=== PATIENT | female | born 1960 | race Caucasian/White ===

== ENCOUNTER 2017-08-25 06:41 | Inpatient (IN) | payer OTHER ==
[2017-08-25] MEDS ORDERED: PANTOPRAZOLE SODIUM 40 MG VIAL IVPUSH ONE (07:39)
[2017-08-25] MEDS ORDERED: PANTOPRAZOLE SODIUM 40 MG VIAL ONE (07:59)
--- NOTE | 2017-08-25 08:29 | PDOC ---
History of Present Illness <Lottie Wilson - Last Filed: 08/25/17 12:10> - History of Present Illness Initial Comments: 08/25/17 08:42 The patient is a 57 year old female with no past medical history who presents to the ED with complaints of dark red blood per rectum with clots since 5 AM today. The patient states she has had two episodes of liquid stool with dark red blood clots in them. She reports preceding "grumbling" in her lower abdomen prior to both bowel movements. Pt's sister states the toilet was "full of blood. " She denies any associated abdominal pain, nausea, vomiting, weakness or dizziness. She denies any history of ulcers or hemorrhoids or any prior colonoscopy before. She states that yesterday she took two advil for a cold, but denies frequent NSAID use. Denies etoh use. She denies any fevers, chills, cough, SOB, CP, or urinary symptoms PCP: Inocencio Duffy <Aurora Sampson - Last Filed: 08/25/17 12:33> - General Chief Complaint: Rectal Bleed Stated Complaint: RECTAL BLEEDING Time Seen by Provider: 08/25/17 07:34 Past History <Lottie Wilson - Last Filed: 08/25/17 12:10> - Past Medical History COPD: No - Immunization History Immunization Up to Date: Yes - Suicide/Smoking/Psychosocial Hx Smoking History: Never smoked Have you smoked in the past 12 months: No Information on smoking cessation initiated: No Hx Alcohol Use: No Drug/Substance Use Hx: No Substance Use Type: None <Aurora Sampson - Last Filed: 08/25/17 12:33> - Past Medical History Allergies/Adverse Reactions: Allergies Allergy/AdvReac Type Severity Reaction Status Date / Time No Known Allergies Allergy Verified 08/25/17 07:00 Home Medications: Ambulatory Orders NK [No Known Home Medication] 08/06/15 Review of Systems - Review of Systems Comments:: 08/25/17 08:42 GENERAL/CONSTITUTIONAL: No fever or chills. No weakness. HEAD, EYES, EARS, NOSE AND THROAT: No change in vision. No ear pain or discharge. No sore throat. GASTROINTESTINAL: No nausea, vomiting, diarrhea or constipation. +rectal bleeding GENITOURINARY: No dysuria, frequency, or change in urination. CARDIOVASCULAR: No chest pain or shortness of breath. RESPIRATORY: No cough, wheezing, or hemoptysis. MUSCULOSKELETAL: No joint or muscle swelling or pain. No neck or back pain. SKIN: No rash NEUROLOGIC: No headache, vertigo, loss of consciousness, or change in strength/ sensation. ENDOCRINE: No increased thirst. No abnormal weight change. HEMATOLOGIC/LYMPHATIC: No anemia, easy bleeding, or history of blood clots. ALLERGIC/IMMUNOLOGIC: No hives or skin allergy. <AlistairKumar [email or web address] - Last Filed: 08/25/17 12:33> *Physical Exam - Vital Signs Last Vital Signs Temp Pulse Resp BP Pulse Ox 98.7 F 71 16 120/87 99 08/25/17 07:00 08/25/17 07:00 08/25/17 07:00 08/25/17 07:00 08/25/17 07:10 <RitaallLottie - Last Filed: 08/25/17 12:10> - Vital Signs Last Vital Signs Temp Pulse Resp BP Pulse Ox 98.7 F 71 16 120/87 99 08/25/17 07:00 08/25/17 07:00 08/25/17 07:00 08/25/17 07:00 08/25/17 07:10 - Physical Exam Comments: 08/25/17 08:43 GENERAL: Awake, alert, and fully oriented, in no acute distress HEAD: No signs of trauma EYES: PERRLA, EOMI, sclera anicteric, conjunctiva clear ENT: Auricles normal inspection, hearing grossly normal, nares patent, oropharynx clear without exudates. Moist mucosa NECK: Normal ROM, supple, no lymphadenopathy, JVD, or masses LUNGS: Breath sounds equal, clear to auscultation bilaterally. No wheezes, and no crackles HEART: Regular rate and rhythm, normal S1 and S2, no murmurs, rubs or gallops ABDOMEN: Soft, nontender, normoactive bowel sounds. No guarding, no rebound. No masses RECTAL: +BRB in vault, no solid stool, no active bleeding or oozing. +non bleeding non thrombosed hemorrhoid at 12 o'clock. EXTREMITIES: Normal range of motion, no edema. No clubbing or cyanosis. No cords, erythema, or tenderness NEUROLOGICAL: Normal speech, cranial nerves intact, negative pronator drift, 5/ 5 strength in all 4 extremities, normal sensation to light touch in all 4 extremities, normal cerebellar exam, normal gait, normal reflexes and tone SKIN: Warm, Dry, normal turgor, no rashes or lesions noted. <Aurora Sampson - Last Filed: 08/25/17 12:33> Heart Score/ECG Review #1 08/25/17 09:37 Twelve-lead EKG was performed and reviewed by me. Normal sinus rhythm, rate 64. Normal axis and intervals. No ST elevations. <Aurora Sampson - Last Filed: 08/25/17 12:33> ED Treatment Course - LABORATORY CBC & Chemistry Diagram: 08/25/17 08:00 08/25/17 09:00 - ADDITIONAL ORDERS Additional order review: Laboratory Results 08/25/17 08/25/17 08/25/17 09:00 08:30 08:28 PT with INR INR PTT (Actin FS) Sodium 141 Potassium 4.2 Chloride 109 H Carbon Dioxide 27 Anion Gap 5 L BUN 14 Creatinine 0.9 Creat Clearance w eGFR > 60 Random Glucose 94 Calcium 8.2 L Total Bilirubin 0.5 AST 20 ALT 17 Alkaline Phosphatase 70 Total Protein 6.7 Albumin 3.5 Urine Color Ltyellow Urine Appearance Slcloudy Urine pH 5.0 Ur Specific [place] 1.014 Urine Protein Negative Urine Glucose (UA) Negative Urine Ketones Negative Urine Blood 1+ H Urine Nitrite Negative Urine Bilirubin Negative Urine Urobilinogen Negative Ur Leukocyte Esterase Negative Urine WBC (Auto) 3 Urine RBC (Auto) 1 Ur Epithelial Cells Few Urine Mucus Rare Stool Occult Blood Positive Blood Type Antibody Screen 08/25/17 08/25/17 08/25/17 08:00 08:00 08:00 PT with INR 11.30 INR 1.00 PTT (Actin FS) Sodium Cancelled Potassium Cancelled Chloride Cancelled Carbon Dioxide Cancelled Anion Gap Cancelled BUN Cancelled Creatinine Cancelled Creat Clearance w eGFR Cancelled Random Glucose Cancelled Calcium Cancelled Total Bilirubin Cancelled AST Cancelled ALT Cancelled Alkaline Phosphatase Cancelled Total Protein Cancelled Albumin Cancelled Urine Color Urine Appearance Urine pH Ur Specific [place] Urine Protein Urine Glucose (UA) Urine Ketones Urine Blood Urine Nitrite Urine Bilirubin Urine Urobilinogen Ur Leukocyte Esterase Urine WBC (Auto) Urine RBC (Auto) Ur Epithelial Cells Urine Mucus Stool Occult Blood Blood Type O POSITIVE Antibody Screen Negative 08/25/17 08:00 PT with INR INR PTT (Actin FS) 27.3 Sodium Potassium Chloride Carbon Dioxide Anion Gap BUN Creatinine Creat Clearance w eGFR Random Glucose Calcium Total Bilirubin AST ALT Alkaline Phosphatase Total Protein Albumin Urine Color Urine Appearance Urine pH Ur Specific [place] Urine Protein Urine Glucose (UA) Urine Ketones Urine Blood Urine Nitrite Urine Bilirubin Urine Urobilinogen Ur Leukocyte Esterase Urine WBC (Auto) Urine RBC (Auto) Ur Epithelial Cells Urine Mucus Stool Occult Blood Blood Type Antibody Screen 08/25/17 08:00 RBC 4.02 MCV 86.5 MCHC 34.2 RDW 13.8 MPV 8.3 Neutrophils % 42.7 L D Lymphocytes % 29.1 D Monocytes % 9.8 Eosinophils % 17.4 H D Basophils % 1.0 - RADIOLOGY Radiograph Interpretation: 08/25/17 10:17 Chest X-ray as reviewed by Dr. Carbone reports no acute pathology. 08/25/17 11:[address] as reviewed by Dr. Sevilla reports sigmoid diverticulosis. 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 The remainder of the study demonstrates no obvious interval change. Bilateral inguinal hernias containing fat only. Very small umbilical hernia containing fat only. Small densities are again noted adjacent to the sigmoid colon and cecum which may be on a post surgical or post procedural basis versus representing incidental postinflammatory/postinfectious calcifications. Chronic fecal retention which is probably moderate. S/p hysterectomy - Medications Given in the ED: ED Medications Discontinued Medications Generic Name Dose Route Start Last Admin Trade Name Freq PRN Reason Stop Dose Admin Pantoprazole Sodium 40 mg 08/25/17 07:39 08/25/17 08:10 Protonix Iv IVPUSH 08/25/17 07:40 40 mg ONCE ONE Administration <Lottie Wilson - Last Filed: 08/25/17 12:10> - LABORATORY CBC & Chemistry Diagram: 08/25/17 12:00 08/25/17 09:00 - RADIOLOGY Radiology Studies Ordered: Category Date Time Status CHEST X-RAY PORTABLE* [RAD] Stat Radiology 08/25/17 07:38 Ordered - Medications Given in the ED: ED Medications Discontinued Medications Generic Name Dose Route Start Last Admin Trade Name Freq PRN Reason Stop Dose Admin Pantoprazole Sodium 40 mg 08/25/17 07:39 08/25/17 08:10 Protonix Iv IVPUSH 08/25/17 07:40 40 mg ONCE ONE Administration <Aurora Sampson - Last Filed: 08/25/17 12:33> Medical Decision Making - Medical Decision Making 08/25/17 12:01 Phone call placed to network operations project manager. Awaiting call back Microblog sent to [facility] hospitalist. Awaiting call back 08/25/17 12:10 Phone calls returned by both and [facility]. Case was discussed <Lottie Wilson - Last Filed: 08/25/17 12:10> - Medical Decision Making 08/25/17 08:31 57-year-old female with no significant past medical history presents emergency Department with 2 episodes of bright red blood per rectum with clots. Patient reports "grumbling "in her lower abdomen prior to the bleeding but denies any abdominal pain. Not on any anticoagulation no abdominal surgeries. No excessive NSAID use or alcohol use. Differential includes but not limited to diverticulosis versus gastritis versus peptic ulcer disease. Plan: -labs -CTAP -admit 08/25/17 12:07 Labs wnl. CTAP with diverticulosis. Likely diverticular bleed. Case discussed with Dr. Reeves who will see pt. Awaiting call back from hospitalist re admission. 08/25/17 12:[address] Varela, patient accepted for admission to Med/Surg. Case discussed in detail with admitting physician including history, physical exam and ancillary studies. Admitting physician has assumed care for the patient, will follow all pending diagnostics and will complete the evaluation and treatment. <Aurora Sampson - Last Filed: 08/25/17 12:33> *DC/Admit/Observation/Transfer - Attestations Scribe Attestion: 08/25/17 10:17 Documentation prepared by Lottie Wilson, acting as medical billing coordinator for Aurora Sampson MD. <Lottie Wilson - Last Filed: 08/25/17 12:10> - Discharge Dispostion Decision to Admit order: Yes - Attestations Physician Attestion: 08/25/17 12:27 I, Dr. Aurora Sampson MD, attest that this document has been prepared under my direction and personally reviewed by me in its entirety. I further attest, that it accurately reflects all work, treatment, procedures and medical decision -making performed by me. <Aurora Sampson - Last Filed: 08/25/17 12:33> Diagnosis at time of Disposition: Diverticulosis - Discharge Dispostion Condition at time of disposition: Stable - Referrals Referrals: ON STAFF,NOT [Primary Care Provider] -
[2017-08-25 08:34] LABS: EOS % 17.4 % (0-4.5); HEMATOCRIT 34.8 % (32.4-45.2); HEMOGLOBIN 11.9 GM/dL (10.7-15.3); LYMPH % 29.1 % (8-40); MCH 29.5 pg (25.7-33.7); MCHC 34.2 g/dl (32.0-36.0); MEAN CELL VOLUME 86.5 fl (80-96); MEAN PLT VOLUME 8.3 fl (7.5-11.1); MONO % 9.8 % (3.8-10.2); NEUT % 42.7 % (42.8-82.8); PLATELET COUNT 222 K/MM3 (134-434); RBC 4.02 M/mm3 (3.60-5.2); RDW 13.8 % (11.6-15.6); WHITE BLOOD COUNT 3.8 K/mm3 (4.0-10.0)
[2017-08-25 08:40] LABS: PROTHROMBIN TIME (PATIENT) 11.3 SEC (9.7-13.0)
[2017-08-25 09:01] LABS: URINE APPEARANCE SLCLOUDY; URINE BILIRUBIN NEGATIVE (<2.0 mg/dL); URINE COLOR LTYELLOW; URINE GLUCOSE (UA) NEGATIVE (NEGATIVE); URINE KETONE NEGATIVE (NEGATIVE); URINE LEUK ESTERASE NEGATIVE (NEGATIVE); URINE NITRITE NEGATIVE (NEGATIVE); URINE PROTEIN NEGATIVE (NEGATIVE); URINE UROBILINOGEN NEGATIVE mg/dL (0.2-1.0)
[2017-08-25 09:06] LABS: EPI CELLS FEW /HPF (FEW); URINE MUCUS RARE
--- NOTE | 2017-08-25 09:16 | EKG ---
Test Reason : Blood Pressure : / mmHG Vent. Rate : 064 BPM Atrial Rate : 064 BPM P-R Int : 180 ms QRS Dur : 080 ms QT Int : 394 ms P-R-T Axes : 061 -04 059 degrees QTc Int : 406 ms NORMAL SINUS RHYTHM SEPTAL INFARCT , AGE UNDETERMINED ABNORMAL ECG NO PREVIOUS ECGS AVAILABLE Confirmed by JERICHO RAMIREZ MD ([id number]) on 08/25/2017 9:16:22 AM Referred By: Confirmed By:JERICHO RAMIREZ MD
[2017-08-25 09:37] LABS: ALBUMIN 3.5 g/dl (3.4-5.0); ALK PHOS 70 U/L (45-117); ANION GAP 5 (8-16); BILIRUBIN,TOTAL 0.5 mg/dL (0.2-1.0); BLOOD UREA NITROGEN 14 mg/dL (7-18); CALCIUM 8.2 mg/dL (8.5-10.1); CHLORIDE 109 mmol/L (98-107); CO2 27 mmol/L (21-32); CREATININE 0.9 mg/dL (0.55-1.02); GLUCOSE,RANDOM 94 mg/dL (74-106); POTASSIUM 4.2 mmol/L (3.5-5.1); SGOT/AST 20 U/L (15-37); SGPT/ALT 17 U/L (12-78); SODIUM 141 mmol/L (136-145); TOT PROT 6.7 g/dl (6.4-8.2)
[2017-08-25 12:12] LABS: HEMATOCRIT 31.4 % (32.4-45.2); HEMOGLOBIN 10.8 GM/dL (10.7-15.3); MCH 29.7 pg (25.7-33.7); MCHC 34.5 g/dl (32.0-36.0); MEAN PLT VOLUME 8.1 fl (7.5-11.1); PLATELET COUNT 201 K/MM3 (134-434); RBC 3.65 M/mm3 (3.60-5.2); RDW 13.4 % (11.6-15.6); WHITE BLOOD COUNT 3.2 K/mm3 (4.0-10.0)
--- NOTE | 2017-08-25 12:35 | PN ---
Teaching Attending Note Name of Resident: Isabela Jackson ATTENDING PHYSICIAN STATEMENT I saw and evaluated the patient. I reviewed the resident's note and discussed the case with the resident. I agree with the resident's findings and plan as documented with exceptions below. SUBJECTIVE: 57 yof with PMHx of kidney stones, Hysterectomy for fibroid bleed, , was in her USOH till this AM when went to the bathroom and had bloody bowel movement. Had another episode half hour later "stool mixed with blood and clots ", "filled the toilet", both episodes associated with crampy abdominal pain, prompting her to come to the ED. Denies any further pain or bleeding or BM in the ED. 12 point ROS done, neg for fevers, chills, recent travel or antibiotics, NSAIDs use, prior similar episode, dizziness, chest pain, palpitations, dyspnea or other complaints. Currently asymptomatic in bed. Mother with family Hx of ?Stomach cancer OBJECTIVE: Vital Signs Period Temp Pulse Resp BP Sys/[place] Pulse Ox Last 24 Hr 98.7 F 71 16 120/87 99-100 Intake & Output 08/22/17 08/23/17 08/24/17 08/25/17 23:59 23:59 23:59 23:59 Weight 150 lb GENERAL: Awake, alert, and fully oriented, in no acute distress. HEAD: Normal with no signs of trauma. EYES: Pupils equal, round and reactive to light, extraocular movements intact, sclera anicteric, conjunctiva clear. No lid lag. EARS, NOSE, THROAT: Ears normal, nares patent, oropharynx clear without exudates. Moist mucous membranes. NECK: Soft, supple, no JVD LUNGS: Breath sounds equal, clear to auscultation bilaterally. No wheezes, and no crackles. No accessory muscle use. HEART: S1S2 regular ABDOMEN: Soft, obese, non tender throughout, no voluntary or involuntary guarding or rigidity, positive bowel sounds, no hepatosplenomegaly appreciated RECTAL: no gross external blood or excoriation, limited rectal exam, skin minimal dried blood otherwise empty vault MUSCULOSKELETAL: Normal range of motion at all joints. No bony deformities or tenderness. No CVA tenderness. UPPER EXTREMITIES: 2+ pulses, warm, well-perfused. No cyanosis. No clubbing. No peripheral edema. LOWER EXTREMITIES: 2+ pulses, warm, well-perfused. No calf tenderness. No peripheral edema. NEUROLOGICAL: Cranial nerves II-XII intact. Normal speech. PSYCHIATRIC: Cooperative. Good eye contact. Appropriate mood and affect. SKIN: Warm, dry, normal turgor, no rashes or lesions noted, normal capillary refill. Home Medication List Medication Instructions Recorded Confirmed Type NK [No Known Home Medication] 08/06/15 08/25/17 History Laboratory Results - last 24 hr 08/25/17 08/25/17 08/25/17 08:00 08:00 08:00 WBC 3.8 L D RBC 4.02 Hgb 11.9 Hct 34.8 MCV 86.5 MCH 29.5 MCHC 34.2 RDW 13.8 Plt Count 222 MPV 8.3 Neutrophils % 42.7 L D Lymphocytes % 29.1 D Monocytes % 9.8 Eosinophils % 17.4 H D Basophils % 1.0 PT with INR INR PTT (Actin FS) 27.3 Sodium Cancelled Potassium Cancelled Chloride Cancelled Carbon Dioxide Cancelled Anion Gap Cancelled BUN Cancelled Creatinine Cancelled Creat Clearance w eGFR Cancelled Random Glucose Cancelled Calcium Cancelled Total Bilirubin Cancelled AST Cancelled ALT Cancelled Alkaline Phosphatase Cancelled Total Protein Cancelled Albumin Cancelled Urine Color Urine Appearance Urine pH Ur Specific [place] Urine Protein Urine Glucose (UA) Urine Ketones Urine Blood Urine Nitrite Urine Bilirubin Urine Urobilinogen Ur Leukocyte Esterase Urine WBC (Auto) Urine RBC (Auto) Ur Epithelial Cells Urine Mucus Stool Occult Blood Blood Type Antibody Screen 08/25/17 08/25/17 08/25/17 08:00 08:00 08:28 WBC RBC Hgb Hct MCV MCH MCHC RDW Plt Count MPV Neutrophils % Lymphocytes % Monocytes % Eosinophils % Basophils % PT with INR 11.30 INR 1.00 PTT (Actin FS) Sodium Potassium Chloride Carbon Dioxide Anion Gap BUN Creatinine Creat Clearance w eGFR Random Glucose Calcium Total Bilirubin AST ALT Alkaline Phosphatase Total Protein Albumin Urine Color Urine Appearance Urine pH Ur Specific [place] Urine Protein Urine Glucose (UA) Urine Ketones Urine Blood Urine Nitrite Urine Bilirubin Urine Urobilinogen Ur Leukocyte Esterase Urine WBC (Auto) Urine RBC (Auto) Ur Epithelial Cells Urine Mucus Stool Occult Blood Positive Blood Type O POSITIVE Antibody Screen Negative 08/25/17 08/25/17 08/25/17 08:30 09:00 12:00 WBC 3.2 L RBC 3.65 Hgb 10.8 Hct 31.4 L MCV 86.0 MCH 29.7 MCHC 34.5 RDW 13.4 Plt Count 201 MPV 8.1 Neutrophils % Lymphocytes % Monocytes % Eosinophils % Basophils % PT with INR INR PTT (Actin FS) Sodium 141 Potassium 4.2 Chloride 109 H Carbon Dioxide 27 Anion Gap 5 L BUN 14 Creatinine 0.9 Creat Clearance w eGFR > 60 Random Glucose 94 Calcium 8.2 L Total Bilirubin 0.5 AST 20 ALT 17 Alkaline Phosphatase 70 Total Protein 6.7 Albumin 3.5 Urine Color Ltyellow Urine Appearance Slcloudy Urine pH 5.0 Ur Specific [place] 1.014 Urine Protein Negative Urine Glucose (UA) Negative Urine Ketones Negative Urine Blood 1+ H Urine Nitrite Negative Urine Bilirubin Negative Urine Urobilinogen Negative Ur Leukocyte Esterase Negative Urine WBC (Auto) 3 Urine RBC (Auto) 1 Ur Epithelial Cells Few Urine Mucus Rare Stool Occult Blood Blood Type Antibody Screen CT A/P: sigmoid diverticulosis, 1.2 cm left renal angiomyolipoma, small inguinal and umbilical fat hernia, small densities adjacent to sigmoid colon/ ceceum present on CT In 2014 EKG NSR 64, QS in V1-V2 ASSESSMENT AND PLAN: 57 yof with hematochezia -Acute lower gastrointestinal Haemorrhage, high suspicion for haemorrhoid vs diverticular bleed, Low suspicion for UGIB as PUD vs vascular malformation -ACute blood loss anemia -Leucopenia Plan: GI Dr. Reeves consulted from ED, will follow up. Likely needs EGD/ colonoscopy. 2 large bore IVs, NPO, IVF, type and screen, h/h q8h. Protonix 40 mg IV BID, monitor for episodes of bleed. Transfuse for Hb < 8 or symptomatic. Trend WBC. DVTPPX with SCDs Plan discussed with patient and sister at bedside in detail, all questions answered. Total admit time 65 min.
--- NOTE | 2017-08-25 13:58 | HP ---
CHIEF COMPLAINT: bleeding from rectum PCP: Dr farida Duffy [phone] HISTORY OF PRESENT ILLNESS: The patient is a 57 year old female with a no significant PMH that presented to ED today complaining of lower GI bleeding that she experienced at 5 AM today. She woke up this morning and had two bowel movements with visible bright blood. The first one was just like "diarrhea full of blood" associated with abdominal cramping, "like bloating" and second episode in less than an hour after, mixed with stool. Her sister that presented with her to the hospital, states that toilet bowl was full of blood. Since the patient came to emergency room, she didn't have more episodes of BMs. She denies having bleeding in the past. At the presentation, she denies abdominal pain, nausea, vomiting. She never had colonoscopy. She denies changing her diet recently. Yesterday she had salad with rice. The patient denies sick contacts. She denies family history of GI malignancy, inflammatory disease. She denies fever, chills, weight loss, weight gain, change in bowel habits recently. She also denies dysuria, increased frequency, urgency. ER course was notable for: (1)Protonix, EKG (2)CT abdomen (3)CBC: Hgb 10.8 Recent Travel: no PAST MEDICAL HISTORY: kidney stones PAST SURGICAL HISTORY: c setion x 3, hysterectomy Social History: Smoking:never smoker Alcohol:denies, then admits occasionally Drugs: denies Family History: Father: , lung cancer, smoker Mother: , DM, HTN Children: healthy Six Siblings: healthy Allergies No Known Allergies Allergy (Verified 08/25/17 07:00) HOME MEDICATIONS: Home Medications Medication Instructions Recorded NK [No Known Home Medication] 08/06/15 REVIEW OF SYSTEMS CONSTITUTIONAL: Absent: fever, chills, diaphoresis, generalized weakness, malaise, loss of appetite, weight change HEENT: Absent: rhinorrhea, nasal congestion, throat pain, throat swelling, difficulty swallowing, mouth swelling, ear pain, eye pain, visual changes CARDIOVASCULAR: Absent: chest pain, syncope, palpitations, irregular heart rate, lightheadedness , peripheral edema RESPIRATORY: Absent: cough, shortness of breath, dyspnea with exertion, orthopnea, wheezing GASTROINTESTINAL: hematochezia Absent: abdominal pain, abdominal distension, nausea, vomiting, diarrhea, constipation, GENITOURINARY: Absent: dysuria, frequency, urgency, hesitancy, hematuria, flank pain, genital pain MUSCULOSKELETAL: Absent: myalgia, arthralgia, joint swelling, back pain, neck pain ENDOCRINE: Absent: unexplained weight gain, unexplained weight loss, heat intolerance, cold intolerance NEUROLOGIC: Absent: headache, focal weakness or paresthesias, dizziness, unsteady gait, seizure PSYCHIATRIC: Absent: anxiety, depression PHYSICAL EXAMINATION Vital Signs - 24 hr 08/25/17 08/25/17 07:00 07:10 Temperature 98.7 F Pulse Rate 71 Respiratory 16 Rate Blood Pressure 120/87 O2 Sat by Pulse 100 99 Oximetry (%) GENERAL: Awake, alert, and fully oriented, in no acute distress, sitting comfortably in bed. HEAD: Normal with no signs of trauma. EYES: Pupils equal, round and reactive to light, extraocular movements intact, sclera anicteric, conjunctiva clear. EARS, NOSE, THROAT: Oropharynx clear without exudates. Moist mucous membranes. NECK: Normal range of motion, supple without lymphadenopathy, JVD, or masses. LUNGS: Breath sounds equal, clear to auscultation bilaterally. No wheezes, and no crackles. No accessory muscle use. HEART: Regular rate and rhythm, normal S1 and S2 without murmur, rub or gallop. ABDOMEN: Soft, nontender, not distended, normoactive bowel sounds, no guarding, no rebound, no masses. No hepatomegaly or splenomegaly. Rectal exam: External hemorrhoid/skin tag, normal sphincter tone, no visible bleeding, no masses appreciated. MUSCULOSKELETAL: Normal range of motion at all joints. No bony deformities or tenderness. UPPER EXTREMITIES: 2+ pulses, no peripheral edema. LOWER EXTREMITIES: 2+ pulses, no peripheral edema. NEUROLOGICAL: Normal speech, no facial asymmetry, motor 5/5 in all extremities, sensation to light touch intact, gait not observed. PSYCHIATRIC: Cooperative. Good eye contact. Appropriate mood and affect. SKIN: Warm, dry, normal turgor, no rashes or lesions noted. Laboratory Results - last 24 hr 08/25/17 08/25/17 08/25/17 08:00 08:00 08:00 WBC 3.8 L D RBC 4.02 Hgb 11.9 Hct 34.8 MCV 86.5 MCH 29.5 MCHC 34.2 RDW 13.8 Plt Count 222 MPV 8.3 Neutrophils % 42.7 L D Lymphocytes % 29.1 D Monocytes % 9.8 Eosinophils % 17.4 H D Basophils % 1.0 PT with INR INR PTT (Actin FS) 27.3 Sodium Cancelled Potassium Cancelled Chloride Cancelled Carbon Dioxide Cancelled Anion Gap Cancelled BUN Cancelled Creatinine Cancelled Creat Clearance w eGFR Cancelled Random Glucose Cancelled Calcium Cancelled Total Bilirubin Cancelled AST Cancelled ALT Cancelled Alkaline Phosphatase Cancelled Total Protein Cancelled Albumin Cancelled Urine Color Urine Appearance Urine pH Ur Specific [place] Urine Protein Urine Glucose (UA) Urine Ketones Urine Blood Urine Nitrite Urine Bilirubin Urine Urobilinogen Ur Leukocyte Esterase Urine WBC (Auto) Urine RBC (Auto) Ur Epithelial Cells Urine Mucus Stool Occult Blood Blood Type Antibody Screen 08/25/17 08/25/17 08/25/17 08:00 08:00 08:28 WBC RBC Hgb Hct MCV MCH MCHC RDW Plt Count MPV Neutrophils % Lymphocytes % Monocytes % Eosinophils % Basophils % PT with INR 11.30 INR 1.00 PTT (Actin FS) Sodium Potassium Chloride Carbon Dioxide Anion Gap BUN Creatinine Creat Clearance w eGFR Random Glucose Calcium Total Bilirubin AST ALT Alkaline Phosphatase Total Protein Albumin Urine Color Urine Appearance Urine pH Ur Specific [place] Urine Protein Urine Glucose (UA) Urine Ketones Urine Blood Urine Nitrite Urine Bilirubin Urine Urobilinogen Ur Leukocyte Esterase Urine WBC (Auto) Urine RBC (Auto) Ur Epithelial Cells Urine Mucus Stool Occult Blood Positive Blood Type O POSITIVE Antibody Screen Negative 08/25/17 08/25/17 08/25/17 08:30 09:00 12:00 WBC 3.2 L RBC 3.65 Hgb 10.8 Hct 31.4 L MCV 86.0 MCH 29.7 MCHC 34.5 RDW 13.4 Plt Count 201 MPV 8.1 Neutrophils % Lymphocytes % Monocytes % Eosinophils % Basophils % PT with INR INR PTT (Actin FS) Sodium 141 Potassium 4.2 Chloride 109 H Carbon Dioxide 27 Anion Gap 5 L BUN 14 Creatinine 0.9 Creat Clearance w eGFR > 60 Random Glucose 94 Calcium 8.2 L Total Bilirubin 0.5 AST 20 ALT 17 Alkaline Phosphatase 70 Total Protein 6.7 Albumin 3.5 Urine Color Ltyellow Urine Appearance Slcloudy Urine pH 5.0 Ur Specific [place] 1.014 Urine Protein Negative Urine Glucose (UA) Negative Urine Ketones Negative Urine Blood 1+ H Urine Nitrite Negative Urine Bilirubin Negative Urine Urobilinogen Negative Ur Leukocyte Esterase Negative Urine WBC (Auto) 3 Urine RBC (Auto) 1 Ur Epithelial Cells Few Urine Mucus Rare Stool Occult Blood Blood Type Antibody Screen CT abdomen: Sigmoid diverticulosis. 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 The remainder of the exam demonstrates no obvious interval change. Bilateral inguinal hernias containing fat only. Very small umbilical hernia containing fat only. Small densities are again noted adjacent to the sigmoid colon and cecum which may be on a postsurgical or postprocedural basis versus representing incidental postinflammatory/postinfectious calcifications. Correlate clinically. Colonic fecal retention which is probably moderate. Status post hysterectomy CXR: no acute pathology EKG: NSR, 64 bpm, qt/qtc 394/406, no sondra/std, Q wave in V1, V2, V3. ASSESSMENT/PLAN: The patient is a 57 year old female with a no significant PMH that presented to ED today s/p two episodes of BRBPR this morning. S/P lower GI bleeding: -based on the patient CT abdomen it is likely that her bleeding is caused by diverticulosis, less likely bc of malformation, mass -no more episodes since arrival to the hospital -Protonix 40 mg IV ONCE given in ED -will contiue hydration with D5ns at rate 100 cc/hr, -type and screen, coags done -Consulted GI-Dr Reeves. Will follow recommendations -monitoring CBC at 8 PM -2 large IV lines present Anemia: -Hgb 10.8 from 11.9 on arrival -most likely acute blood loss -will monitor Leukopenia: -3.2 today -will monitor history of kidney stones: -no visible nephrolithiasis on CT DVT PPX: -Protonix 40 mg BID -scds bilaterally -no Heparin sq due to bleeding F/E/N: D5NS/no changes/NPO Disposition: med surg, inpatient Problem List - Problem (1) Leukopenia Code(s): D72.819 - DECREASED WHITE BLOOD CELL COUNT, UNSPECIFIED (2) Anemia due to blood loss Code(s): D50.0 - IRON DEFICIENCY ANEMIA SECONDARY TO BLOOD LOSS (CHRONIC) (3) Diverticulosis Code(s): K57.90 - DVRTCLOS OF INTEST, PART UNSP, W/O PERF OR ABSCESS W/O BLEED Visit type - Emergency Visit Emergency Visit: Yes ED Registration Date: 08/25/17 Care time: The patient presented to the Emergency Department on the above date and was hospitalized for further evaluation of their emergent condition. - New Patient This patient is new to me today: Yes Date on this admission: 08/25/17 - Critical Care Critical Care patient: No Hospitalist Screening - Colonoscopy Questionnaire Colonoscopy Questionnaire: Colonoscopy Questionnaire - Patient: 50 - 75 years old and never had a screening colonoscopy: No History of colon or rectal polyps, or CA: No History of IBD, Crohn's disease or UC: No History of abdominal radiation therapy as a child: No - Relative: 1 with colon or rectal CA, or polyps at age 60 or younger: No Colon or rectal CA diagnosed at age 45 or younger: No Multiple relatives with colon or rectal CA: No - Outcome: Screening Result: Negative Screen
[2017-08-25] MEDS: DEXTROSE 5%-NORMAL SALINE 1,000 ML IV SCH ×2 (14:04→18:31)
--- NOTE | 2017-08-25 16:55 | PN ---
Progress Note (short form) - Note Progress Note: GI CONSULTATION: PLEASE SEE COMPLETE DICTATION IN BRIEF 57F--NO PMED HX/ NO PRIOR GI HX ADMIT WITH PAINLESS HEMATOCHEZIA X 3 WITHOUT HEMODYNAMIC COMPOMISE OR OTHER GI SX POST HYDRATION HGB DROP TO 10.5 AGREE MOST LIKELY A DIVERTICULAR BLEED AND SHOULD RESOLVE WITH SUPPORTIVE CARE RECC: CLEARS PO F/U H/H Q 12 COLONOSOCPY/ DIAGNOSTIC IF REMAINS STABLE; WOULD BEGIN A BOWEL PREP ON 08/26 AT 2 PM GOLYTLY 4 LITERS PO AND AT 7PM ON 08/26 DULCOLAX TABS 20MG PO x 1 FOR COLONOSOCPY ON 08/27 IF PT HAS ONSET OF HEMODYNAMIC SIGNIF BLEEDING, THEN WOULD ADVISE CT ANGIO AND SURGICAL EVAL. THANKS, MD VALERIE
[2017-08-25 18:10] VITALS: BMI 24.2
[2017-08-25 18:22] LABS: HEMATOCRIT 31.5 % (32.4-45.2); MCH 30.1 pg (25.7-33.7); MEAN CELL VOLUME 86.2 fl (80-96); MEAN PLT VOLUME 8.3 fl (7.5-11.1); PLATELET COUNT 199 K/MM3 (134-434); RBC 3.65 M/mm3 (3.60-5.2); RDW 13.6 % (11.6-15.6); WHITE BLOOD COUNT 3.5 K/mm3 (4.0-10.0)
[2017-08-25] MEDS: PANTOPRAZOLE SODIUM 40 MG VIAL IVPUSH SCH (22:33)
[2017-08-26] MEDS: DEXTROSE 5%-NORMAL SALINE 1,000 ML IV SCH ×2 (01:41→13:08)
--- NOTE | 2017-08-26 06:08 | CONS ---
DATE OF CONSULTATION: 08/25/2017 GASTROENTEROLOGY CONSULTATION REASON FOR CONSULTATION: I was asked by the ER to evaluate the patient for hematemesis. HISTORY OF PRESENT ILLNESS: The patient is a 57-year-old woman from [facility] who tells me that she has no significant past medical history. Apparently she has no significant prior gastrointestinal history. She has never had a colonoscopy. She has never had issues with her bowels in the past. Apparently she noted that this morning she got the urge to go to the toilet, went to the toilet. She had a little bit of abdominal cramping and a whole gush of blood came out. She said it was a lot of blood with some clots. She did not lose consciousness, have shortness of breath, dizziness, diaphoresis or chest pain. She then had a second episode with the same sequence of events, where she got the urge, cramping and again bleeding. She came to the hospital. This started at around 5 in the morning, and said that about an hour or two ago, she also had an episode of bright red blood per rectum. The patient denies having any significant fever, chills or sweats, eating anything uncooked or being on any new medication. She had taken an aspirin for a sinus or a cold a couple of days ago, but that was just one. She has not had prior diarrhea. There is no history of any celiac or Crohn's or colitis personally or in the family. According to the EMR, it says that she has had kidney stones. She did elicit that she has had a x3 and hysterectomy. She does not smoke. She does drink a minimal amount of alcohol. She is single. She is working. Her family history is not significant for any gastrointestinal disease. She has no known drug allergies to any medication that she is aware of. Since she is here, she is feeling better. Again, she is not having any fever, chills or sweats, nausea or vomiting. In the emergency room, the patient is getting some IV fluid as well as some Protonix IV. PHYSICAL EXAMINATION: Vital Signs: Her vital signs are completely stable. She is afebrile. Pulse 70, blood pressure 120/87. General: She looks very comfortable, in no acute distress. HEENT: Sclerae are anicteric. Neck: Supple. Heart: Regular. Abdomen: Quite soft. Bowel sounds are active. There are no masses, rebound or guarding. Rectal: Exam actually does not reveal any blood. It just reveals some mucus. There is no significant stool in the rectal vault. DIAGNOSTIC STUDIES: Her lab data is notable in that her white count is 3, hemoglobin 10.8, hematocrit 31, which is after 4 hours of hydration. Her hemoglobin had been 11.9 and dropped to 10.8 after hydration. The platelet count is 201,000. Her coags are normal, with an INR of 1. The chemistries reveal serum sodium 141, potassium 4.2, chloride 109, bicarbonate 27, BUN 14, creatinine 0.9, total bilirubin 0.5, AST 20, ALT 17, alkaline phosphatase 70, albumin 3.5. She had a CT scan of the abdomen and pelvis that revealed sigmoid diverticulosis and a left renal angiomyolipoma, which was seen on a CAT scan in 2014. There are no other significant changes. There are bilateral inguinal hernias containing fat and a small umbilical hernia containing fat as well. There is moderate colonic fecal retention. There are no other significant findings. IMPRESSION: The patient is a healthy appearing 57-year-old woman from [facility] without past medical history, who comes in with a very acute onset of hematemesis without signs or symptoms or hemodynamic compromise. She appears to have a hemodynamically stable lower gastrointestinal bleed. Her hemoglobin has dropped after hydration to below 11 g, and I suspect this is a diverticular bleed. PLAN: I have recommended that the patient be kept either n.p.o. or just on clear liquids, that she be observed, the hemoglobin and hematocrit be repeated, and if she does well overnight then tomorrow we would want to begin a bowel preparation with GoLYTELY and Dulcolax to clean out her colon, such that she can undergo a diagnostic colonoscopy. Should she have onset of hemodynamically significant bleeding or should further active bleeding ensue, then we may need to get a CT angiogram as well as a surgical consultation. For now, however, she appears to be stable and I agree with the current management. We will continue to be available to aid and manage this patient. I have discussed with her the colonoscopy procedure, the fact that it would be a routine diagnostic exam normally in someone her age. We do want to exclude the possibility of colitis, colorectal polyps or tumors. But again, as I have explained, diverticulosis would be the most likely etiology. ЮЛИЯ PADILLA M.D. RICHARD/[id number]
[2017-08-26 08:06] LABS: HEMATOCRIT 31.3 % (32.4-45.2); HEMOGLOBIN 10.8 GM/dL (10.7-15.3); MCH 29.8 pg (25.7-33.7); MCHC 34.4 g/dl (32.0-36.0); MEAN CELL VOLUME 86.4 fl (80-96); MEAN PLT VOLUME 8.4 fl (7.5-11.1); PLATELET COUNT 187 K/MM3 (134-434); RBC 3.62 M/mm3 (3.60-5.2); RDW 13.8 % (11.6-15.6); WHITE BLOOD COUNT 3.3 K/mm3 (4.0-10.0)
[2017-08-26 08:18] LABS: ALBUMIN 2.9 g/dl (3.4-5.0); ALK PHOS 62 U/L (45-117); ANION GAP 4 (8-16); BILIRUBIN,TOTAL 0.8 mg/dL (0.2-1.0); BLOOD UREA NITROGEN 9 mg/dL (7-18); CALCIUM 7.9 mg/dL (8.5-10.1); CHLORIDE 112 mmol/L (98-107); CO2 27 mmol/L (21-32); CREATININE 0.9 mg/dL (0.55-1.02); GLUCOSE,RANDOM 100 mg/dL (74-106); MAGNESIUM 2.2 mg/dL (1.8-2.4); PHOSPHOROUS 3.1 mg/dL (2.5-4.9); POTASSIUM 4.1 mmol/L (3.5-5.1); SGOT/AST 14 U/L (15-37); SGPT/ALT 13 U/L (12-78); SODIUM 143 mmol/L (136-145); TOT PROT 5.8 g/dl (6.4-8.2)
[2017-08-26 09:14] LABS: ANISOCYTOSIS 0; PLATELET ESTIMATE NORMAL
[2017-08-26] MEDS: PANTOPRAZOLE SODIUM 40 MG VIAL IVPUSH SCH ×2 (09:51→22:13)
[2017-08-26] MEDS ORDERED: PEG3350/SOD SULF,BICARB,CL/KCL 4,000 ML SOLN.RECON PO ONE (14:00)
--- NOTE | 2017-08-26 15:25 | PN ---
Teaching Attending Note Name of Resident: Ayanna Varela SUBJECTIVE: Patient seen and examined. no further episodes of bleed or BM. no dizziness or new concerns. OBJECTIVE: Vital Signs Period Temp Pulse Resp BP Sys/[place] Pulse Ox Last 24 Hr 97.5 F-98.2 F 56-84 16-20 122-149/67-88 98-100 Intake & Output 08/23/17 08/24/17 08/25/17 08/26/17 23:59 23:59 23:59 23:59 Intake Total 100 1680 Balance 100 1680 Weight 150 lb general: lying in bed in no acute distress Abdomen Soft, obese, NT throughout, ND, positive bowel sounds extremities: no edema Chest: CTAB, no rales or wheezing Home Medication List Medication Instructions Recorded Confirmed Type NK [No Known Home Medication] 08/06/15 08/25/17 History Active Medications Generic Name Dose Route Start Last Admin Trade Name Freq PRN Reason Stop Dose Admin Bisacodyl 10 mg 08/26/17 19:00 Dulcolax Suppository - RC 08/26/17 19:01 ONCE ONE Dextrose/Sodium Chloride 1,000 mls @ 100 mls/hr 08/25/17 13:00 08/26/17 13:08 D5-Ns - IV 100 mls/hr ASDIR HERNAN Administration Pantoprazole Sodium 40 mg 08/25/17 22:00 08/26/17 09:51 Protonix Iv IVPUSH 40 mg BID HERNAN Administration Laboratory Results - last 24 hr 08/25/17 08/26/17 08/26/17 17:50 07:25 07:25 WBC 3.5 L 3.3 L RBC 3.65 3.62 Hgb 11.0 10.8 Hct 31.5 L 31.3 L MCV 86.2 86.4 MCH 30.1 29.8 MCHC 35.0 34.4 RDW 13.6 13.8 Plt Count 199 187 MPV 8.3 8.4 Neutrophils % No Result Required. Neutrophils % (Manual) 30.1 L Band Neutrophils % 0.0 Lymphocytes % No Result Required. Lymphocytes % (Manual) 37.8 Monocytes % (Manual) 4 Eosinophils % (Manual) 26.2 H Basophils % (Manual) 1.0 Myelocytes % (Man) 0 Promyelocytes % (Man) 0 Blast Cells % (Manual) 0 Nucleated RBC % 0 Metamyelocytes 0 Hypochromia 1+ Platelet Estimate Normal Anisocytosis 0 Sodium 143 Potassium 4.1 Chloride 112 H Carbon Dioxide 27 Anion Gap 4 L BUN 9 Creatinine 0.9 Creat Clearance w eGFR > 60 Random Glucose 100 Calcium 7.9 L Phosphorus 3.1 Magnesium 2.2 Total Bilirubin 0.8 D AST 14 L ALT 13 Alkaline Phosphatase 62 Total Protein 5.8 L Albumin 2.9 L Microbiology 08/25/17 08:30 Urine - Urine Clean Catch Urine Culture - Final NO GROWTH OBTAINED ASSESSMENT AND PLAN: 57 yof with hematochezia -Acute lower gastrointestinal Haemorrhage, high suspicion for haemorrhoid vs diverticular bleed, Low suspicion for UGIB as PUD vs vascular malformation -Acute blood loss anemia -Leucopenia Plan: GI input noted. PO clears, start bowel prep with golytely and dulcolax today. NPO after midnight. Colonscopy +/- EGD tomorrow. Continue protonix IV BID, IVF. repeat h/h today if new bloody BM. otherwise in AM. DVTPPX with SCDs Plan discussed with patient in detail, all questions answered.
--- NOTE | 2017-08-26 15:49 | PN ---
GI Progress Note Subjective: GI F/U NOTE NO NEW COMPLAINTS NO FURTHER RECTAL BLEEDING NO BM'S YET PT HAS STARTED BOWEL PREP NO N/V/F/C/S NO ABD PAIN - Objective Vital Signs: Vital Signs Temperature 97.8 F 08/26/17 14:07 Pulse Rate 59 L 08/26/17 14:07 Respiratory Rate 20 08/26/17 14:07 Blood Pressure 149/88 08/26/17 14:07 O2 Sat by Pulse Oximetry (%) 98 08/26/17 10:42 Constitutional: Well Nourished, No Distress, Calm Eyes: Yes: WNL HENT: Yes: WNL (+BS/ SOFT/ NT) Labs: CBC, BMP 08/26/17 07:25 08/26/17 07:25 INR, PTT INR 1.00 (0.82-1.09) 08/25/17 08:00 Assessment/Plan 57F WTIH ACUTE HEMATOCHEZIA DROP IN HGB TO 10---STABLE x 12 HOURS SUSPECT RESOLVED DIVERTICULAR BLEED BOWEL PREP/ NPO AT TN FOR COLON/ DIAGNOSTIC 08/27 D/W PT AND SHE CONSENTS TO EXA F/U H/H IN CHARLES PADILLA MD
[2017-08-26] MEDS ORDERED: BISACODYL 10 MG SUPP.RECT RC ONE (19:00)
--- NOTE | 2017-08-27 07:42 | PN ---
Physical Exam: SUBJECTIVE: Patient seen and examined. Rectal bleeding has improved, no more clots. Has been on bowel prep for colonosocopy and stool this am is clear, free of blood. No abdominal pain, no lightheadedness. OBJECTIVE: Vital Signs Period Temp Pulse Resp BP Sys/Green[place] Pulse Ox Last 24 Hr 97.3 F-98.1 F 56-65 20-20 137-149/77-88 98 Vital Signs Temp 98.0 F 08/27/17 15:35 Pulse 61 08/27/17 15:35 Resp 20 08/27/17 15:35 BP 154/87 08/27/17 15:35 Pulse Ox 100 08/27/17 14:22 Intake & Output 08/26/17 08/27/17 08/27/17 23:59 11:59 23:59 Intake Total 2100 1200 0 Balance 2100 1200 0 Intake: IV 1100 1200 D5-Ns - 1,000 ml @ 100 1100 1200 mls/hr IV ASDIR HERNAN Rx#: [id number] Oral 1000 0 Other: Voiding Method Toilet Toilet Toilet # Unmeasured Voids Void 3 3 1 Bowel Movement Yes Yes # Bowel Movements 4 GENERAL: The patient is awake, alert, and fully oriented, in no acute distress. NECK: supple. LUNGS: Breath sounds equal, clear to auscultation bilaterally, no wheezes, no crackles HEART: Regular rate and rhythm, S1, S2 without murmur ABDOMEN: Soft, nontender, nondistended, normoactive bowel sounds, no guarding, no rebound, EXTREMITIES: 2+ pulses, warm, well-perfused, no edema. NEUROLOGICAL: Cranial nerves II through XII grossly intact. Normal speech, normal gait PSYCH: Normal mood, normal affect. Laboratory Results - last 24 hr 08/26/17 08/26/17 07:25 07:25 WBC 3.3 L RBC 3.62 Hgb 10.8 Hct 31.3 L MCV 86.4 MCH 29.8 MCHC 34.4 RDW 13.8 Plt Count 187 MPV 8.4 Neutrophils % No Result Required. Neutrophils % (Manual) 30.1 L Band Neutrophils % 0.0 Lymphocytes % No Result Required. Lymphocytes % (Manual) 37.8 Monocytes % (Manual) 4 Eosinophils % (Manual) 26.2 H Basophils % (Manual) 1.0 Myelocytes % (Man) 0 Promyelocytes % (Man) 0 Blast Cells % (Manual) 0 Nucleated RBC % 0 Metamyelocytes 0 Hypochromia 1+ Platelet Estimate Normal Anisocytosis 0 Sodium 143 Potassium 4.1 Chloride 112 H Carbon Dioxide 27 Anion Gap 4 L BUN 9 Creatinine 0.9 Creat Clearance w eGFR > 60 Random Glucose 100 Calcium 7.9 L Phosphorus 3.1 Magnesium 2.2 Total Bilirubin 0.8 D AST 14 L ALT 13 Alkaline Phosphatase 62 Total Protein 5.8 L Albumin 2.9 L Active Medications Generic Name Dose Route Start Last Admin Trade Name [place] PRN Reason Stop Dose Admin Dextrose/Sodium Chloride 1,000 mls @ 100 mls/hr 08/25/17 13:00 08/26/17 13:08 D5-Ns - IV 100 mls/hr ASDIR HERNAN Administration Pantoprazole Sodium 40 mg 08/25/17 22:00 08/26/17 22:13 Protonix Iv IVPUSH 40 mg BID HERNAN Administration Endoscopy: Ulcerated mass at 65cm. Distal and prox ends tatooed, extensively biopsied. CT abdomen 08/25/17: Sigmoid diverticulosis. 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 The remainder of the exam demonstrates no obvious interval change. Bilateral inguinal hernias containing fat only. Very small umbilical hernia containing fat only. Small densities are again noted adjacent to the sigmoid colon and cecum which may be on a postsurgical or postprocedural basis versus representing incidental postinflammatory/postinfectious calcifications. Correlate clinically. Colonic fecal retention which is probably moderate. Status post hysterectomy CXR: no acute pathology EKG: NSR, 64 bpm, qt/qtc 394/406, no sondra/std, Q wave in V1, V2, V3. ASSESSMENT/PLAN: No NSAIDS CT A/P/C with contrast ASSESSMENT/PLAN: The patient is a 57 year old female with a no significant PMH that presented to ED today s/p two episodes of BRBPR this morning. S/P GI bleeding likely lower: - CT abdomen -Had bowel prep overnight with bleeding clearing by am -Protonix 40 mg IV ONCE given in ED -On D5ns@100 cc/hr, -type and screen, coags done - GI-Dr Reeves. --2 large IV lines present - Colonoscopy done tonight, see above ulceration for Cancer work up -Consult hemonc -Consult Surgery -CEA Anemia: -Hgb stable -most likely due to lower GI -will monitor Leukopenia: -3.2 -will monitor history of kidney stones: -no visible nephrolithiasis on CT DVT PPX: -Protonix 40 mg BID -scds bilaterally -no Heparin sq due to bleeding F/E/N: D5NS/no changes/NPO Disposition: med surg, inpatient Visit type - Emergency Visit Emergency Visit: Yes ED Registration Date: 08/25/17 Care time: The patient presented to the Emergency Department on the above date and was hospitalized for further evaluation of their emergent condition. - New Patient This patient is new to me today: Yes Date on this admission: 08/27/17 - Critical Care Critical Care patient: No - Discharge Referral Referred to [facility] Med P.C.: No
[2017-08-27 08:16] LABS: HEMATOCRIT 31.8 % (32.4-45.2); MCH 29.8 pg (25.7-33.7); MCHC 34.6 g/dl (32.0-36.0); MEAN CELL VOLUME 86.2 fl (80-96); MEAN PLT VOLUME 8.4 fl (7.5-11.1); PLATELET COUNT 203 K/MM3 (134-434); RBC 3.69 M/mm3 (3.60-5.2); RDW 13.8 % (11.6-15.6); WHITE BLOOD COUNT 3.3 K/mm3 (4.0-10.0)
[2017-08-27 09:31] LABS: INR 1.04 (0.82-1.09); PROTHROMBIN TIME (PATIENT) 11.8 SEC (9.7-13.0)
[2017-08-27] MEDS: PANTOPRAZOLE SODIUM 40 MG VIAL IVPUSH SCH ×2 (09:31→21:48)
[2017-08-27] MEDS: DEXTROSE 5%-NORMAL SALINE 1,000 ML IV SCH ×2 (09:32→13:00)
[2017-08-27 10:12] LABS: PLATELET ESTIMATE NORMAL
--- NOTE | 2017-08-27 13:19 | PROC ---
Endoscopy Procedure Endoscopy procedure completed. Please see scanned procedure report.
--- NOTE | 2017-08-27 13:39 | PN ---
Teaching Attending Note Name of Resident: Jenny Juan Carlos Philippegricelda ATTENDING PHYSICIAN STATEMENT I saw and evaluated the patient. I reviewed the resident's note and discussed the case with the resident. I agree with the resident's findings and plan as documented with exceptions below. SUBJECTIVE: Patient seen and examined. had bloody BM with prep overnight, no dizziness, abdominal pain, nausea, vomiting or new complaints. OBJECTIVE: Vital Signs Period Temp Pulse Resp BP Sys/Greenwood Pulse Ox Last 24 Hr 97.3 F-98.1 F 59-65 20-20 137-149/77-88 98-98 Intake & Output 08/24/17 08/25/17 08/26/17 08/27/17 23:59 23:59 23:59 23:59 Intake Total 100 3780 1200 Balance 100 3780 1200 Weight 150 lb General: lying in stretcher in no acute distress Abdomen: soft, NT throughout, ND Extremities: no edema Home Medication List Medication Instructions Recorded Confirmed Type NK [No Known Home Medication] 08/06/15 08/25/17 History Active Medications Generic Name Dose Route Start Last Admin Trade Name Malcomq PRN Reason Stop Dose Admin Dextrose/Sodium Chloride 1,000 mls @ 100 mls/hr 08/25/17 13:00 08/27/17 09:32 D5-Ns - IV 100 mls/hr ASDIR HERNAN Administration Pantoprazole Sodium 40 mg 08/25/17 22:00 08/27/17 09:31 Protonix Iv IVPUSH 40 mg BID HERNAN Administration Laboratory Results - last 24 hr 08/27/17 08/27/17 07:00 08:55 WBC 3.3 L RBC 3.69 Hgb 11.0 Hct 31.8 L MCV 86.2 MCH 29.8 MCHC 34.6 RDW 13.8 Plt Count 203 MPV 8.4 Total Counted 99 Neutrophils % No Result Required. Neutrophils % (Manual) 21.2 L D Band Neutrophils % 0.0 Lymphocytes % No Result Required. Lymphocytes % (Manual) 51.5 H D Monocytes % (Manual) 8 D Eosinophils % (Manual) 19.2 H Basophils % (Manual) 0.0 Myelocytes % (Man) 0 Promyelocytes % (Man) 0 Blast Cells % (Manual) 0 Nucleated RBC % 0 Metamyelocytes 0 Platelet Estimate Normal PT with INR 11.80 INR 1.04 ASSESSMENT AND PLAN: 57 yof with hematochezia -Acute lower gastrointestinal Haemorrhage, high suspicion for haemorrhoid vs diverticular bleed, Low suspicion for UGIB as PUD vs vascular malformation -Acute blood loss anemia -Leucopenia Plan: BLood BM overnight with prep, but h/h, hemodynamics stable, ?old blood. For colonscopy today, will follow up. Continue PPI, IVF, advance diet per GI. DVTPPX with SCDs dispo planning home in 24 hours if h/h stable and no new concerns. Plan discussed with patient in detail, all questions answered.
--- NOTE | 2017-08-27 14:01 | PROC ---
Endoscopy Procedure Endoscopy procedure completed. Please see scanned procedure report. Ulcerated mass @ 65 cm. Distal and proximal ends tattooed. Extensively biopsied. No NSAIDs CT A/P/C with contrast CEA
--- NOTE | 2017-08-27 22:56 | CONSULT ---
Consult - text type - Consultation Consultation Note: The patient is a 57 year old female with no past medical history who presents to the ED with bleeding per rectum. She denies any associated abdominal pain, nausea, vomiting, weakness or dizziness. She denies any history of ulcers or hemorrhoids or any prior colonoscopy before. She underwent EGD/colonoscopy - Past Medical History none - Suicide/Smoking/Psychosocial Hx Smoking History: Never smoked Allergies/Adverse Reactions: Allergies Allergy/AdvReac Type Severity Reaction Status Date / Time No Known Allergies Allergy Verified 08/25/17 07:00 Home Medications: Ambulatory Orders NK [No Known Home Medication] 08/06/15 - Vital Signs Last Vital Signs Temp Pulse Resp BP Pulse Ox 98.7 F 71 16 120/87 99 08/25/17 07:00 08/25/17 07:00 08/25/17 07:00 08/25/17 07:00 08/25/17 07:10 GENERAL: Awake, alert, and fully oriented, in no acute distress EYES: PERRLA, EOMI, sclera anicteric, conjunctiva clear NECK: Normal ROM, supple, no lymphadenopathy, JVD, or masses LUNGS: Breath sounds equal, clear to auscultation bilaterally. No wheezes, and no crackles HEART: Regular rate and rhythm, normal S1 and S2, no murmurs, rubs or gallops ABDOMEN: Soft, nontender, normoactive bowel sounds. EXTREMITIES: Normal range of motion, no edema. No clubbing or cyanosis. No cords, erythema, or tenderness NEUROLOGICAL: nonfocal Abnormal Lab Results 08/27/17 07:00 WBC 3.3 L Hct 31.8 L Neutrophils % (Manual) 21.2 L D Lymphocytes % (Manual) 51.5 H D Eosinophils % (Manual) 19.[address] as reviewed by Dr. Sevilla reports sigmoid diverticulosis. 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 The remainder of the study demonstrates no obvious interval change. Bilateral inguinal hernias containing fat only. Very small umbilical hernia containing fat only. Small densities are again noted adjacent to the sigmoid colon and cecum which may be on a post surgical or post procedural basis versus representing incidental postinflammatory/postinfectious calcifications. Chronic fecal retention which is probably moderate. S/p hysterectomy A/P 57-year-old female with no significant past medical history presents with rectal bleeding. Colonoscopy revealed ulcerated mass at [address] a/p --angiomyolipoma 1.2cm increased from 0.9cm in 2015 CT chest--no mets CEA pending No family h/o colon cancer await biopsy/surgical consult
--- NOTE | 2017-08-28 07:24 | PN ---
Physical Exam: SUBJECTIVE: Patient seen and examined. No bleeding over night. Was placed on clears after procedure but yet to start diet. No fever or abdominal pain. Will have family member come in to further discuss findings. OBJECTIVE: Vital Signs Period Temp Pulse Resp BP Sys/Greenwood Pulse Ox Last 24 Hr 97.3 F-98.3 F 60-70 12-20 134-160/78-100 98-100 Vital Signs Temp 97.8 F 08/27/17 22:00 Pulse 70 08/27/17 22:00 Resp 18 08/27/17 22:00 BP 154/86 08/27/17 22:00 Pulse Ox 98 08/27/17 21:00 Intake & Output 08/27/17 08/27/17 08/28/17 11:59 23:59 11:59 Intake Total 1200 1000 1300 Balance 1200 1000 1300 Intake: IV 0259 949 1726 D5-Ns - 1,000 ml @ 100 7634 271 4164 mls/hr IV ASDIR HERNAN Rx#: [id number] Oral 300 200 Other: Voiding Method Toilet Toilet # Unmeasured Voids Void 3 1 1 Bowel Movement No No GENERAL: The patient is awake, alert, and fully oriented, in no acute distress. ENT: moist mucous membranes. LUNGS: Breath sounds equal, clear to auscultation bilaterally HEART: Regular rate and rhythm, S1, S2 ABDOMEN: Soft, nontender, nondistended, normoactive bowel sounds EXTREMITIES: 2+ pulses, warm, well-perfused, no edema. NEUROLOGICAL: Cranial nerves II through XII grossly intact. Normal speech, normal gait Laboratory Results - last 24 hr 08/27/17 08/27/17 07:00 08:55 WBC 3.3 L RBC 3.69 Hgb 11.0 Hct 31.8 L MCV 86.2 MCH 29.8 MCHC 34.6 RDW 13.8 Plt Count 203 MPV 8.4 Total Counted 99 Neutrophils % No Result Required. Neutrophils % (Manual) 21.2 L D Band Neutrophils % 0.0 Lymphocytes % No Result Required. Lymphocytes % (Manual) 51.5 H D Monocytes % (Manual) 8 D Eosinophils % (Manual) 19.2 H Basophils % (Manual) 0.0 Myelocytes % (Man) 0 Promyelocytes % (Man) 0 Blast Cells % (Manual) 0 Nucleated RBC % 0 Metamyelocytes 0 Platelet Estimate Normal PT with INR 11.80 INR 1.04 Active Medications Generic Name Dose Route Start Last Admin Trade Name Nava PRN Reason Stop Dose Admin Dextrose/Sodium Chloride 1,000 mls @ 100 mls/hr 08/25/17 13:00 08/27/17 13:00 D5-Ns - IV Not Given ASDIR HERNAN Pantoprazole Sodium 40 mg 08/25/17 22:00 08/27/17 21:48 Protonix Iv IVPUSH 40 mg BID HERNAN Administration Endoscopy: Ulcerated mass at 65cm. Distal and prox ends tatooed, extensively biopsied. CT abdomen 08/25/17: Sigmoid diverticulosis. 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 The remainder of the exam demonstrates no obvious interval change. Bilateral inguinal hernias containing fat only. Very small umbilical hernia containing fat only. Small densities are again noted adjacent to the sigmoid colon and cecum which may be on a postsurgical or postprocedural basis versus representing incidental postinflammatory/postinfectious calcifications. Correlate clinically. Colonic fecal retention which is probably moderate. Status post hysterectomy CXR: no acute pathology EKG: NSR, 64 bpm, qt/qtc 394/406, no sondra/std, Q wave in V1, V2, V3. CT chest 08/28/17: No metastases ASSESSMENT/PLAN: The patient is a 57 year old female with a no significant PMH that presented to ED today s/p two episodes of BRBPR this morning. S/P GI bleeding likely lower: Now with mass 65cm from anal verge likely likely sigmoid; left colon carcinoma, pending biopsy results - Colonoscopy done tonight, see above ulceration for Cancer work up -Consult Surgery- Per Dr Salvador d/w patient - IMP:likely sigmoid; left colon carcinoma, Pt would need segmental colon resection; he d/w the patient and her sister Emily; will f/u pending bx. results . -Patient will likely have sx during this admission, likely Sunday when biopsy results are available -CEA- pending -No NSAIDS -CT A/P/C with contrast - GI-Dr Reeves- Dr Terry did endoscopy/colonoscopy. -Started clear fluids, diet advanced -Family conversation today -Pending biopsy results -D/C D5ns@100 cc/hr, --2 large IV lines present -Hemonc- on board appreciate recs Anemia: -Hgb stabl -No more rectal bleeding for now -most likely due to lower GI -will monitor Leukopenia: -3.2 -will monitor history of kidney stones: -no visible nephrolithiasis on CT DVT PPX: -Protonix 40 mg BID -scds bilaterally -no Heparin sq due to bleeding Dispo: Cancer work up/staging For likely sx following biopsy pathology report Cont Med Surg Visit type - Emergency Visit Emergency Visit: Yes ED Registration Date: 08/25/17 Care time: The patient presented to the Emergency Department on the above date and was hospitalized for further evaluation of their emergent condition. - New Patient This patient is new to me today: No - Critical Care Critical Care patient: No - Discharge Referral Referred to [facility] Med P.C.: No
[2017-08-28 07:39] LABS: BASO % 0.6 % (0-2.0); EOS % 17.7 % (0-4.5); HEMATOCRIT 32.1 % (32.4-45.2); LYMPH % 41.3 % (8-40); MCH 29.5 pg (25.7-33.7); MCHC 34.2 g/dl (32.0-36.0); MEAN CELL VOLUME 86.4 fl (80-96); MEAN PLT VOLUME 8.5 fl (7.5-11.1); MONO % 9.1 % (3.8-10.2); NEUT % 31.3 % (42.8-82.8); PLATELET COUNT 217 K/MM3 (134-434); RBC 3.72 M/mm3 (3.60-5.2); RDW 13.7 % (11.6-15.6); WHITE BLOOD COUNT 3.5 K/mm3 (4.0-10.0)
[2017-08-28 08:18] LABS: CALCIUM 8.1 mg/dL (8.5-10.1); CHLORIDE 109 mmol/L (98-107); POTASSIUM 3.8 mmol/L (3.5-5.1); SODIUM 142 mmol/L (136-145)
[2017-08-28 08:25] LABS: ALK PHOS 69 U/L (45-117); ANION GAP 7 (8-16); BILIRUBIN,TOTAL 0.6 mg/dL (0.2-1.0); BLOOD UREA NITROGEN 3 mg/dL (7-18); CO2 26 mmol/L (21-32); CREATININE 0.9 mg/dL (0.55-1.02); GLUCOSE,RANDOM 91 mg/dL (74-106); PHOSPHOROUS 3.5 mg/dL (2.5-4.9); SGOT/AST 14 U/L (15-37); SGPT/ALT 13 U/L (12-78)
[2017-08-28] MEDS: PANTOPRAZOLE SODIUM 40 MG VIAL IVPUSH SCH ×2 (10:12→21:37)
--- NOTE | 2017-08-28 10:17 | CONSULT ---
- Consultation REQUESTING PROVIDER: Avery WELLER CONSULT REQUEST: We have been asked to surgically evaluate this patient for a mass in the colon 65 cm. from the anal verge. PCP:Ciara Patrick HISTORY OF PRESENT ILLNESS: 57 y/o female admitted w/rectal bleeding on GI w/u reveals a mass at 65 cm. from the anal verge; she has no c/o today. PMHx: none PSHx: C-S Home Medications Medication Instructions Recorded NK [No Known Home Medication] 08/06/15 Allergies Allergy/AdvReac Type Severity Reaction Status Date / Time No Known Allergies Allergy Verified 08/25/17 07:00 PHYSICAL EXAM: GENERAL: Awake, alert, and fully oriented, in no acute distress. HEAD: Normal with no signs of trauma. EYES: sclera anicteric, conjunctiva clear. NECK: Normal ROM, supple without lymphadenopathy, JVD, or masses. ABDOMEN: Soft, nontender, not distended, normoactive bowel sounds, no guarding, no rebound, no masses. No organomegaly; healed C-S scar; no clinical hernias. MUSCULOSKELETAL: Normal ROM at all joints. No bony deformities or tenderness. No CVA tenderness. UPPER EXTREMITIES: 2+ pulses, warm, well-perfused. No cyanosis. Cap refill <2 seconds. No peripheral edema. LOWER EXTREMITIES: 2+ pulses, warm, well-perfused. No calf tenderness. No peripheral edema. NEUROLOGICAL: Normal speech, gait not observed. PSYCH: Cooperative. Good eye contact. Appropriate mood and affect. SKIN: Warm, dry, normal turgor, no rashes or lesions noted. Vital Signs Temperature 98.6 F 08/28/17 08:39 Pulse Rate 90 08/28/17 08:39 Respiratory Rate 18 08/28/17 08:39 Blood Pressure 116/78 08/28/17 08:39 O2 Sat by Pulse Oximetry (%) 98 08/27/17 21:00 Lab Results WBC 3.5 K/mm3 (4.0-10.0) L 08/28/17 06:30 RBC 3.72 M/mm3 (3.60-5.2) 08/28/17 06:30 Hgb 11.0 GM/dL (10.7-15.3) 08/28/17 06:30 Hct 32.1 % (32.4-45.2) L 08/28/17 06:30 MCV 86.4 fl (80-96) 08/28/17 06:30 MCHC 34.2 g/dl (32.0-36.0) 08/28/17 06:30 RDW 13.7 % (11.6-15.6) 08/28/17 06:30 Plt Count 217 K/MM3 (134-434) 08/28/17 06:30 Sodium 142 mmol/L (136-145) 08/28/17 06:30 Potassium 3.8 mmol/L (3.5-5.1) 08/28/17 06:30 Chloride 109 mmol/L (98-107) H 08/28/17 06:30 Carbon Dioxide 26 mmol/L (21-32) 08/28/17 06:30 Anion Gap 7 (8-16) L 08/28/17 06:30 BUN 3 mg/dL (7-18) L 08/28/17 06:30 Creatinine 0.9 mg/dL (0.55-1.02) 08/28/17 06:30 Random Glucose 91 mg/dL (74-106) 08/28/17 06:30 Calcium 8.1 mg/dL (8.5-10.1) L 08/28/17 06:30 Blood Type O POSITIVE 08/25/17 08:00 Antibody Screen Negative 08/25/17 08:00 INR 1.04 (0.82-1.09) 08/27/17 08:55 CT scan a/p reviewed; GI consult and associated documentation reviewed IMP:likeley sigmoid; left colon carcinoma PLAN: Wiill need segmental colon resection; d/w the patient and her sister Emily; will f/u pending bx. results . Tj Salvador MD FACS
--- NOTE | 2017-08-28 15:59 | PN ---
Teaching Attending Note Name of Resident: Jenny Munguia ATTENDING PHYSICIAN STATEMENT I saw and evaluated the patient. I reviewed the resident's note and discussed the case with the resident. I agree with the resident's findings and plan as documented. SUBJECTIVE:asymptomatic. denies CP, SOB, fever, chills, N/V/C/D, BRBPR, melena OBJECTIVE: Last Vital Signs Temp Pulse Resp BP Pulse Ox 98.6 F 90 18 116/78 98 08/28/17 08:39 08/28/17 08:39 08/28/17 08:39 08/28/17 08:39 08/27/17 21:00 General NAD CV S1 S2 RRR no mumur/rub/gallop Lungs CTA B/L no wheezing/rales/rhonchi Abdomen soft NT/ND ASSESSMENT AND PLAN: 57 yo F with no PMH with hematochezia 1. Acute lower gastrointestinal Haemorrhage- s/p colonoscopy with L sided mass seen 65cm from anal verge. multiple Bx taken. high suspicion for malignancy. surgery consulted and plan for surgery on Sunday pending the results of Bx. oncology also consulted awaiting pathology results. family discussion today with GI and patients family. advance diet. CEA pending 2. Acute blood loss anemia- Hgb stable. no reports of bleeding at this time. no indication for transfusion 3. Leucopenia - stable. afebrile. low suspicion for infection. flow cytometry sent. hematology on board 4. DVT ppx- will start hep sq. no contraindication as bleeding has stopped and Hgb has been stable
--- NOTE | 2017-08-28 19:37 | PN ---
Progress Note, Physician History of Present Illness: comfortable. No events. No bleeding. No pain. - Current Medication List Current Medications: Active Medications Heparin Sodium (Porcine) (Heparin -) 5,000 unit SQ TID [facility] Dextrose/Sodium Chloride (D5-Ns -) 1,000 mls @ 100 mls/hr IV ASDIR [facility] Last Admin: 08/27/17 13:00 Dose: Not Given Pantoprazole Sodium (Protonix Iv) 40 mg IVPUSH BID [facility] Last Admin: 08/28/17 10:12 Dose: 40 mg - Objective Vital Signs: Vital Signs Temperature 97.8 F 08/28/17 18:00 Pulse Rate 60 08/28/17 18:00 Respiratory Rate 20 08/28/17 18:00 Blood Pressure 143/87 08/28/17 18:00 O2 Sat by Pulse Oximetry (%) 98 08/27/17 21:00 Constitutional: Yes: Well Nourished, No Distress, Calm Gastrointestinal: Yes: Normal Bowel Sounds, Soft. No: Melena, Rectal Bleeding, Tenderness, Vomiting Labs: CBC, BMP 08/28/17 06:30 08/28/17 06:30 INR, PTT INR 1.04 (0.82-1.09) 08/27/17 08:55 Laboratory Last Values WBC 3.5 K/mm3 (4.0-10.0) L 08/28/17 06:30 RBC 3.72 M/mm3 (3.60-5.2) 08/28/17 06:30 Hgb 11.0 GM/dL (10.7-15.3) 08/28/17 06:30 Hct 32.1 % (32.4-45.2) L 08/28/17 06:30 MCV 86.4 fl (80-96) 08/28/17 06:30 MCH 29.5 pg (25.7-33.7) 08/28/17 06:30 MCHC 34.2 g/dl (32.0-36.0) 08/28/17 06:30 RDW 13.7 % (11.6-15.6) 08/28/17 06:30 Plt Count 217 K/MM3 (134-434) 08/28/17 06:30 MPV 8.5 fl (7.5-11.1) 08/28/17 06:30 Total Counted 99 08/27/17 07:00 Neutrophils % 31.3 % (42.8-82.8) L D 08/28/17 06:30 Neutrophils % (Manual) 21.2 % (42.8-82.8) L D 08/27/17 07:00 Band Neutrophils % 0.0 % 08/27/17 07:00 Lymphocytes % 41.3 % (8-40) H D 08/28/17 06:30 Lymphocytes % (Manual) 51.5 % (8-40) H D 08/27/17 07:00 Monocytes % 9.1 % (3.8-10.2) 08/28/17 06:30 Monocytes % (Manual) 8 % (3.8-10.2) D 08/27/17 07:00 Eosinophils % 17.7 % (0-4.5) H 08/28/17 06:30 Eosinophils % (Manual) 19.2 % (0-4.5) H 08/27/17 07:00 Basophils % 0.6 % (0-2.0) 08/28/17 06:30 Basophils % (Manual) 0.0 % (0-2.0) 08/27/17 07:00 Myelocytes % (Man) 0 % (0-2) 08/27/17 07:00 Promyelocytes % (Man) 0 % (0-2) 08/27/17 07:00 Blast Cells % (Manual) 0 % (0-0) 08/27/17 07:00 Nucleated RBC % 0 % (0-0) 08/27/17 07:00 Metamyelocytes 0 % (0-2) 08/27/17 07:00 Hypochromia 1+ 08/26/17 07:25 Platelet Estimate Normal 08/27/17 07:00 Anisocytosis 0 08/26/17 07:25 PT with INR 11.80 SEC (9.7-13.0) 08/27/17 08:55 INR 1.04 (0.82-1.09) 08/27/17 08:55 PTT (Actin FS) 27.9 SECONDS (26.9-34.4) 08/28/17 06:30 Sodium 142 mmol/L (136-145) 08/28/17 06:30 Potassium 3.8 mmol/L (3.5-5.1) 08/28/17 06:30 Chloride 109 mmol/L (98-107) H 08/28/17 06:30 Carbon Dioxide 26 mmol/L (21-32) 08/28/17 06:30 Anion Gap 7 (8-16) L 08/28/17 06:30 BUN 3 mg/dL (7-18) L 08/28/17 06:30 Creatinine 0.9 mg/dL (0.55-1.02) 08/28/17 06:30 Creat Clearance w eGFR > 60 (>60) 08/28/17 06:30 Random Glucose 91 mg/dL (74-106) 08/28/17 06:30 Calcium 8.1 mg/dL (8.5-10.1) L 08/28/17 06:30 Phosphorus 3.5 mg/dL (2.5-4.9) 08/28/17 06:30 Magnesium 2.0 mg/dL (1.8-2.4) 08/28/17 06:30 Total Bilirubin 0.6 mg/dL (0.2-1.0) D 08/28/17 06:30 AST 14 U/L (15-37) L 08/28/17 06:30 ALT 13 U/L (12-78) 08/28/17 06:30 Alkaline Phosphatase 69 U/L (45-117) 08/28/17 06:30 Total Protein 6.0 g/dl (6.4-8.2) L 08/28/17 06:30 Albumin 3.0 g/dl (3.4-5.0) L 08/28/17 06:30 Urine Color Ltyellow 08/25/17 08:30 Urine Appearance Slcloudy 08/25/17 08:30 Urine pH 5.0 (5.0-8.0) 08/25/17 08:30 Ur Specific [place] 1.014 (1.001-1.035) 08/25/17 08:30 Urine Protein Negative (NEGATIVE) 08/25/17 08:30 Urine Glucose (UA) Negative (NEGATIVE) 08/25/17 08:30 Urine Ketones Negative (NEGATIVE) 08/25/17 08:30 Urine Blood 1+ (NEGATIVE) H 08/25/17 08:30 Urine Nitrite Negative (NEGATIVE) 05/12/18 08:30 Urine Bilirubin Negative (<2.0 mg/dL) 08/25/17 08:30 Urine Urobilinogen Negative mg/dL (0.2-1.0) 08/25/17 08:30 Ur Leukocyte Esterase Negative (NEGATIVE) 08/25/17 08:30 Urine WBC (Auto) 3 /hpf (3-5) 08/25/17 08:30 Urine RBC (Auto) 1 /hpf (0-3) 08/25/17 08:30 Ur Epithelial Cells Few /HPF (FEW) 08/25/17 08:30 Urine Mucus Rare 08/25/17 08:30 Stool Occult Blood Positive (NEGATIVE) 08/25/17 08:28 Blood Type O POSITIVE 08/25/17 08:00 Antibody Screen Negative 08/25/17 08:00 Problem List - Problems (1) Colonic mass Code(s): K63.9 - DISEASE OF INTESTINE, UNSPECIFIED (2) Anemia due to blood loss Code(s): D50.0 - IRON DEFICIENCY ANEMIA SECONDARY TO BLOOD LOSS (CHRONIC) Assessment/Plan Suspect malignancy. Surgery and oncology evaluation appreciated. Await pathology report. Advance diet. Patient can follow up with GI as an outpatient next week.
[2017-08-28] MEDS: HEPARIN NA (PORCINE) 5,000 UNITS/ML 1ML VIAL SQ SCH (21:37)
[2017-08-28] MEDS: DEXTROSE 5%-NORMAL SALINE 1,000 ML IV SCH (21:39)
[2017-08-29] MEDS: HEPARIN NA (PORCINE) 5,000 UNITS/ML 1ML VIAL SQ SCH ×3 (05:57→21:30)
[2017-08-29 07:58] LABS: HEMATOCRIT 31.4 % (32.4-45.2); MCH 30.4 pg (25.7-33.7); MCHC 35.2 g/dl (32.0-36.0); MEAN CELL VOLUME 86.4 fl (80-96); MEAN PLT VOLUME 8.2 fl (7.5-11.1); PLATELET COUNT 212 K/MM3 (134-434); RBC 3.63 M/mm3 (3.60-5.2); RDW 13.7 % (11.6-15.6); WHITE BLOOD COUNT 3.5 K/mm3 (4.0-10.0)
--- NOTE | 2017-08-29 08:00 | PN ---
Physical Exam: SUBJECTIVE: Patient seen and examined. No c/o overnight. Tolerating diet, no bleeding per rectum. No chills, fever of chest pain. Pt spoke with a doctor with her family about the diagnosis yesterday. OBJECTIVE: Vital Signs Temp 98.2 F 08/29/17 09:00 Pulse 73 08/29/17 09:00 Resp 18 08/29/17 09:00 BP 130/74 08/29/17 09:00 Pulse Ox 99 08/28/17 21:00 Intake & Output 08/28/17 08/29/17 08/29/17 23:59 11:59 23:59 Intake Total 1610 1060 Balance 1610 1060 Intake: IV 700 600 D5-Ns - 1,000 ml @ 100 700 600 mls/hr IV ASDIR HERNAN Rx#: [id number] Oral 910 460 Other: Voiding Method Toilet Toilet # Unmeasured Voids Void 3 1 Bowel Movement Yes No # Bowel Movements 1 Vital Signs Period Temp Pulse Resp BP Sys/Greenwood Pulse Ox Last 24 Hr 97.8 F-98.6 F 60-90 18-20 116-145/75-91 99 GENERAL: The patient is awake, alert, and fully oriented, in no acute distress. ENT: moist mucous membranes. NECK: Trachea midline, full range of motion, supple. LUNGS: Breath sounds equal, clear to auscultation bilaterally HEART: Regular rate and rhythm, S1, S2 ABDOMEN: Soft, nontender, nondistended, normoactive bowel sounds EXTREMITIES: 2+ pulses, warm, well-perfused, no edema. NEUROLOGICAL: Cranial nerves II through XII grossly intact. Normal speech, normal gait CBC, BMP 08/29/17 07:00 08/29/17 07:00 Laboratory Results - last 24 hr 08/28/17 08/28/17 06:30 06:30 PTT (Actin FS) 27.9 Sodium 142 Potassium 3.8 Chloride 109 H Carbon Dioxide 26 Anion Gap 7 L BUN 3 L Creatinine 0.9 Creat Clearance w eGFR > 60 Random Glucose 91 Calcium 8.1 L Phosphorus 3.5 Magnesium 2.0 Total Bilirubin 0.6 D AST 14 L ALT 13 Alkaline Phosphatase 69 Total Protein 6.0 L Albumin 3.0 L Active Medications Generic Name Dose Route Start Last Admin Trade Name Freq PRN Reason Stop Dose Admin Heparin Sodium (Porcine) 5,000 unit 08/28/17 22:00 08/29/17 05:57 Heparin - SQ 5,000 unit TID HERNAN Administration Endoscopy 08/27/17: Ulcerated mass at 65cm. Distal and prox ends tatooed, extensively biopsied. CT abdomen 08/25/17: Sigmoid diverticulosis. 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 The remainder of the exam demonstrates no obvious interval change. Bilateral inguinal hernias containing fat only. Very small umbilical hernia containing fat only. Small densities are again noted adjacent to the sigmoid colon and cecum which may be on a postsurgical or postprocedural basis versus representing incidental postinflammatory/postinfectious calcifications. Correlate clinically. Colonic fecal retention which is probably moderate. Status post hysterectomy CXR: no acute pathology EKG: NSR, 64 bpm, qt/qtc 394/406, no sondra/std, Q wave in V1, V2, V3. CT chest 08/28/17: No metastases ASSESSMENT/PLAN: The patient is a 57 year old female with a no significant PMH that presented to ED today s/p two episodes of BRBPR this morning. S/P GI bleeding likely lower: Rectal bleed resolved Now with mass 65cm from anal verge likely likely sigmoid; left colon carcinoma, pending biopsy results - Colonoscopy done, see above ulceration for Cancer work up -Consult Surgery- Per Dr Salvador d/w patient - IMP:likely sigmoid; left colon carcinoma, Pt would need segmental colon resection; he d/w the patient and her sister Emily; will f/u pending bx. results . -Patient will likely have sx during this admission, scheduled for Sunday per Dr Salvador after biopsy results are available -CEA- pending -No NSAIDS -CT A/P/C with contrast - GI-Dr Reeves- Dr Terry did endoscopy/colonoscopy. -Full diet -Family conversation today -Pending biopsy results -Hemonc- on board appreciate recs Anemia: -Hgb stable -No more rectal bleeding for now -most likely due to lower GI -will monitor Leukopenia: -3.2 -Stable -will monitor history of kidney stones: -no visible nephrolithiasis on CT DVT PPX: sq heparin 5000 u tids Dispo: Cancer work up/staging For likely sx following biopsy pathology report, likely Sunday Cont Med Surg Visit type - Emergency Visit Emergency Visit: Yes ED Registration Date: 08/25/17 Care time: The patient presented to the Emergency Department on the above date and was hospitalized for further evaluation of their emergent condition. - New Patient This patient is new to me today: No - Critical Care Critical Care patient: No - Discharge Referral Referred to [facility] Med P.C.: No
[2017-08-29 08:12] LABS: INR 1.03 (0.82-1.09); PROTHROMBIN TIME (PATIENT) 11.6 SEC (9.7-13.0)
[2017-08-29 08:14] LABS: ACTIVATED PTT 33.4 SECONDS (26.9-34.4)
[2017-08-29 08:30] LABS: CHLORIDE 109 mmol/L (98-107); SODIUM 142 mmol/L (136-145)
[2017-08-29 08:39] LABS: ALK PHOS 70 U/L (45-117); ANION GAP 6 (8-16); BILIRUBIN,TOTAL 0.6 mg/dL (0.2-1.0); BLOOD UREA NITROGEN 9 mg/dL (7-18); CALCIUM 8.1 mg/dL (8.5-10.1); CO2 27 mmol/L (21-32); GLUCOSE,RANDOM 90 mg/dL (74-106); MAGNESIUM 2.1 mg/dL (1.8-2.4); PHOSPHOROUS 3.2 mg/dL (2.5-4.9); SGOT/AST 13 U/L (15-37); SGPT/ALT 13 U/L (12-78); TOT PROT 5.9 g/dl (6.4-8.2)
--- NOTE | 2017-08-29 08:46 | PN ---
Progress Note, Physician History of Present Illness: Comfortable. No events. No bleeding. No pain. - Current Medication List Current Medications: Active Medications Heparin Sodium (Porcine) (Heparin -) 5,000 unit SQ TID HERNAN Last Admin: 08/29/17 05:57 Dose: 5,000 unit - Objective Vital Signs: Vital Signs Temperature 97.9 F 08/29/17 06:00 Pulse Rate 63 08/29/17 06:00 Respiratory Rate 18 08/29/17 06:00 Blood Pressure 138/89 08/29/17 06:00 O2 Sat by Pulse Oximetry (%) 99 08/28/17 21:00 Gastrointestinal: Yes: Soft. No: Melena, Rectal Bleeding, Tenderness, Vomiting Neurological: Yes: Alert, Oriented Labs: CBC, BMP 08/29/17 07:00 08/29/17 07:00 INR, PTT INR 1.03 (0.82-1.09) 08/29/17 07:00 Laboratory Last Values WBC 3.5 K/mm3 (4.0-10.0) L 08/29/17 07:00 RBC 3.63 M/mm3 (3.60-5.2) 08/29/17 07:00 Hgb 11.0 GM/dL (10.7-15.3) 08/29/17 07:00 Hct 31.4 % (32.4-45.2) L 08/29/17 07:00 MCV 86.4 fl (80-96) 08/29/17 07:00 MCH 30.4 pg (25.7-33.7) 08/29/17 07:00 MCHC 35.2 g/dl (32.0-36.0) 08/29/17 07:00 RDW 13.7 % (11.6-15.6) 08/29/17 07:00 Plt Count 212 K/MM3 (134-434) 08/29/17 07:00 MPV 8.2 fl (7.5-11.1) 08/29/17 07:00 Total Counted 99 08/27/17 07:00 Neutrophils % No Result Required. 08/29/17 07:00 Neutrophils % (Manual) 21.2 % (42.8-82.8) L D 08/27/17 07:00 Band Neutrophils % 0.0 % 08/27/17 07:00 Lymphocytes % No Result Required. 08/29/17 07:00 Lymphocytes % (Manual) 51.5 % (8-40) H D 08/27/17 07:00 Monocytes % 9.1 % (3.8-10.2) 08/28/17 06:30 Monocytes % (Manual) 8 % (3.8-10.2) D 08/27/17 07:00 Eosinophils % 17.7 % (0-4.5) H 08/28/17 06:30 Eosinophils % (Manual) 19.2 % (0-4.5) H 08/27/17 07:00 Basophils % 0.6 % (0-2.0) 08/28/17 06:30 Basophils % (Manual) 0.0 % (0-2.0) 08/27/17 07:00 Myelocytes % (Man) 0 % (0-2) 08/27/17 07:00 Promyelocytes % (Man) 0 % (0-2) 08/27/17 07:00 Blast Cells % (Manual) 0 % (0-0) 08/27/17 07:00 Nucleated RBC % 0 % (0-0) 08/27/17 07:00 Metamyelocytes 0 % (0-2) 08/27/17 07:00 Hypochromia 1+ 08/26/17 07:25 Platelet Estimate Normal 08/27/17 07:00 Anisocytosis 0 08/26/17 07:25 PT with INR 11.60 SEC (9.7-13.0) 08/29/17 07:00 INR 1.03 (0.82-1.09) 08/29/17 07:00 PTT (Actin FS) 33.4 SECONDS (26.9-34.4) 08/29/17 07:00 Sodium 142 mmol/L (136-145) 08/29/17 07:00 Potassium 4.0 mmol/L (3.5-5.1) 08/29/17 07:00 Chloride 109 mmol/L (98-107) H 08/29/17 07:00 Carbon Dioxide 27 mmol/L (21-32) 08/29/17 07:00 Anion Gap 6 (8-16) L 08/29/17 07:00 BUN 9 mg/dL (7-18) 08/29/17 07:00 Creatinine 1.0 mg/dL (0.55-1.02) 08/29/17 07:00 Creat Clearance w eGFR 56.75 (>60) 08/29/17 07:00 Random Glucose 90 mg/dL (74-106) 08/29/17 07:00 Calcium 8.1 mg/dL (8.5-10.1) L 08/29/17 07:00 Phosphorus 3.2 mg/dL (2.5-4.9) 08/29/17 07:00 Magnesium 2.1 mg/dL (1.8-2.4) 08/29/17 07:00 Total Bilirubin 0.6 mg/dL (0.2-1.0) 08/29/17 07:00 AST 13 U/L (15-37) L 08/29/17 07:00 ALT 13 U/L (12-78) 08/29/17 07:00 Alkaline Phosphatase 70 U/L (45-117) 08/29/17 07:00 Total Protein 5.9 g/dl (6.4-8.2) L 08/29/17 07:00 Albumin 3.0 g/dl (3.4-5.0) L 08/29/17 07:00 Carcinoembryonic Ag 5.2 ng/mL (0.0-4.7) H 08/28/17 06:30 Urine Color Ltyellow 08/25/17 08:30 Urine Appearance Slcloudy 08/25/17 08:30 Urine pH 5.0 (5.0-8.0) 08/25/17 08:30 Ur Specific [place] 1.014 (1.001-1.035) 08/25/17 08:30 Urine Protein Negative (NEGATIVE) 08/25/17 08:30 Urine Glucose (UA) Negative (NEGATIVE) 08/25/17 08:30 Urine Ketones Negative (NEGATIVE) 08/25/17 08:30 Urine Blood 1+ (NEGATIVE) H 08/25/17 08:30 Urine Nitrite Negative (NEGATIVE) 08/25/17 08:30 Urine Bilirubin Negative (<2.0 mg/dL) 08/25/17 08:30 Urine Urobilinogen Negative mg/dL (0.2-1.0) 08/25/17 08:30 Ur Leukocyte Esterase Negative (NEGATIVE) 08/25/17 08:30 Urine WBC (Auto) 3 /hpf (3-5) 08/25/17 08:30 Urine RBC (Auto) 1 /hpf (0-3) 08/25/17 08:30 Ur Epithelial Cells Few /HPF (FEW) 08/25/17 08:30 Urine Mucus Rare 08/25/17 08:30 Stool Occult Blood Positive (NEGATIVE) 08/25/17 08:28 Blood Type O POSITIVE 08/25/17 08:00 Antibody Screen Negative 08/25/17 08:00 Problem List - Problems (1) Colonic mass Code(s): K63.9 - DISEASE OF INTESTINE, UNSPECIFIED (2) Anemia due to blood loss Code(s): D50.0 - IRON DEFICIENCY ANEMIA SECONDARY TO BLOOD LOSS (CHRONIC) Assessment/Plan Follow-up with me next Sunday. Discussed with the patient. She verbalizes understanding.
--- NOTE | 2017-08-29 09:04 | PN ---
Progress Note (short form) - Note Progress Note: Surgery Awaiting biopsy results. Will Follow.
[2017-08-29 09:49] LABS: PLATELET ESTIMATE NORMAL
--- NOTE | 2017-08-29 12:34 | PN ---
Teaching Attending Note Name of Resident: Jenny Munguia ATTENDING PHYSICIAN STATEMENT I saw and evaluated the patient. I reviewed the resident's note and discussed the case with the resident. I agree with the resident's findings and plan as documented. SUBJECTIVE:asymptomatic. tolerating diet. no more rectal bleeding. denies CP, SOB, OBJECTIVE: Last Vital Signs Temp Pulse Resp BP Pulse Ox 98.2 F 73 18 130/74 99 08/29/17 09:00 08/29/17 09:00 08/29/17 09:00 08/29/17 09:00 08/28/17 21:00 General NAD Abdomen soft NT/ND ASSESSMENT AND PLAN: 57 yo F with no PMH with hematochezia 1. Acute lower gastrointestinal Haemorrhage- s/p colonoscopy with L sided mass seen 65cm from anal verge. multiple Bx taken. high suspicion for malignancy. surgery consulted and plan for surgery on Sunday pending the results of Bx. oncology also consulted awaiting pathology results. CEA pending 2. Acute blood loss anemia- Hgb stable. no reports of bleeding at this time. no indication for transfusion 3. Leucopenia - stable. afebrile. low suspicion for infection. flow cytometry sent. hematology on board 4. DVT ppx- hep sq
--- NOTE | 2017-08-29 14:33 | PATH ---
Surgical Pathology Report Patient Name: GOMEZ PLASCENCIA [facility]. Rec. #: [id number] /Age/Gender: 1960 (Age: 57) / F Account: [id number] Location: [address] [place] [address]/[facility] Taken: 08/27/2017 Received: 08/28/2017 Reported: 08/29/2017 Physicians: Stanley Crowe M.D. Specimen(s) Received A: MASS AT 65CM B: RECTAL POLYP Clinical History GI bleed Postoperative diagnosis: Colon mass and polyps Final Diagnosis A. MASS AT 65 CM, BIOPSY: INVASIVE ADENOCARCINOMA, MODERATELY DIFFERENTIATED, IN ASSOCIATION WITH TUBULOVILLOUS ADENOMA. B. RECTAL POLYP, POLYPECTOMY: HYPERPLASTIC POLYP. Comment: Report on IHC for MSI to follow. Interdepartmental case reviewed with consensus on diagnosis. This case was discussed with Dr. Terry on August 29, 2017. Electronically Signed Jaycob Davidson M.D. Addendum Reported: 08/30/2017 Addendum Diagnosis The Colorectal biomarkers: Immunohistochemistry (IHC) Testing for Mismatch Repair (MMR) Proteins MLH1 Intactnuclear expression MSH2 Intact nuclear expression MSH6 Intact nuclear expression PMS2 Intact nuclear expression Background nonneoplastic tissue/internal control with intact nuclear expression. The immunochemistry stains ([id number]) were performed at [place] [address]. IHC Interpretation No loss of nuclear expression of MMR proteins: low probability of microsatellite instability-high(MSI-H)# Jaycob Davidson M.D. Gross Description A. Received in formalin, labeled "biopsy mass at 65 cm" are 6 jennings, irregular portions of soft tissue ranging from 0.2-0.4 cm. in greatest dimension. The specimens are submitted in toto in one cassette. B. Received in formalin, labeled "biopsy rectal polyp" are 2 jennings, irregular portions of soft tissue averaging 0.2 cm. in greatest dimension. The specimens are submitted in toto in one cassette. 08/28/2017 saudi08/28/2017
--- NOTE | 2017-08-29 18:55 | PN ---
Progress Note (short form) - Note Progress Note: Pt seen and examined. chart reviewed CEA 5.5 Surg path: Invasive moderately differentiated adenoca of the colon O/E General: NAD HEENT: NCAT Cor:RRR Lungs: CTA b/l Abd: Non-tender LE: no CCE Last Vital Signs Temp Pulse Resp BP Pulse Ox 98.2 F 78 18 122/96 99 08/29/17 16:10 08/29/17 16:10 08/29/17 16:10 08/29/17 16:10 08/29/17 09:00 CBC, BMP 08/29/17 07:00 08/29/17 07:00 Current Medications Generic Name Dose Route Start Last Admin Trade Name Freq PRN Reason Stop Dose Admin Heparin Sodium (Porcine) 5,000 unit 08/28/17 22:00 08/29/17 15:05 Heparin - SQ 5,000 unit TID HERNAN Administration 57-year-old female with no significant past medical history presents with rectal bleeding. Colonoscopy revealed ulcerated mass at 65 cm. Path with Invasive adenoca of the Colon mass CT a/p --angiomyolipoma 1.2cm increased from 0.9cm in 2015 CT chest--no mets CEA 5,5 Surgical consult appreciated Adjuvant Tx --to be decided post resection and on surgical path report d/w pt
[2017-08-30] MEDS: HEPARIN NA (PORCINE) 5,000 UNITS/ML 1ML VIAL SQ SCH ×3 (06:10→22:04)
--- NOTE | 2017-08-30 08:12 | PN ---
Physical Exam: SUBJECTIVE: Patient seen and examined. No rectal bleed, no abdominal pain, no fevers. Tolerating PO. Aware of surgery for tomorrow. Pt wants a note to the [facility] for her daughter. OBJECTIVE: Vital Signs Period Temp Pulse Resp BP Sys/Greenwood Pulse Ox Last 24 Hr 98 F-98.4 F 61-78 18-18 122-144/74-97 99-100 Vital Signs Temp 98.4 F 08/30/17 06:00 Pulse 61 08/30/17 06:00 Resp 18 08/30/17 06:00 BP 137/75 08/30/17 06:00 Pulse Ox 100 08/29/17 21:00 Intake & Output 08/29/17 08/29/17 08/30/17 11:59 23:59 11:59 Intake Total 1060 480 Balance 1060 480 Intake: IV 600 D5-Ns - 1,000 ml @ 100 600 mls/hr IV ASDIR HERNAN Rx#: [id number] Oral 460 480 Other: Voiding Method Toilet Toilet # Unmeasured Voids Void 1 1 1 Bowel Movement No No GENERAL: The patient is awake, alert, and fully oriented, in no acute distress. HEAD: Normal with no signs of trauma. EYES: PERRL, extraocular movements intact, sclera anicteric, conjunctiva clear. No ptosis. ENT: Ears normal, nares patent, oropharynx clear without exudates, moist mucous membranes. NECK: Trachea midline, full range of motion, supple. LUNGS: Breath sounds equal, clear to auscultation bilaterally, no wheezes, no crackles, no accessory muscle use. HEART: Regular rate and rhythm, S1, S2 without murmur, rub or gallop. ABDOMEN: Soft, nontender, nondistended, normoactive bowel sounds, no guarding, no rebound, no hepatosplenomegaly, no masses. EXTREMITIES: 2+ pulses, warm, well-perfused, no edema. NEUROLOGICAL: Cranial nerves II through XII grossly intact. Normal speech, gait not observed. Laboratory Results - last 24 hr 08/29/17 08/29/17 08/29/17 07:00 07:00 07:00 WBC 3.5 L RBC 3.63 Hgb 11.0 Hct 31.4 L MCV 86.4 MCH 30.4 MCHC 35.2 RDW 13.7 Plt Count 212 MPV 8.2 Total Counted 99 Neutrophils % (Manual) 40.4 L D Band Neutrophils % 0.0 Lymphocytes % (Manual) 31.3 D Monocytes % (Manual) 8 Eosinophils % (Manual) 16.2 H Basophils % (Manual) 0.0 Myelocytes % (Man) 2 D Promyelocytes % (Man) 0 Blast Cells % (Manual) 0 Nucleated RBC % 0 Metamyelocytes 1 D Platelet Estimate Normal Platelet Comment Present PT with INR 11.60 INR 1.03 PTT (Actin FS) 33.4 Sodium 142 Potassium 4.0 Chloride 109 H Carbon Dioxide 27 Anion Gap 6 L BUN 9 Creatinine 1.0 Creat Clearance w eGFR 56.75 Random Glucose 90 Calcium 8.1 L Phosphorus 3.2 Magnesium 2.1 Total Bilirubin 0.6 AST 13 L ALT 13 Alkaline Phosphatase 70 Total Protein 5.9 L Albumin 3.0 L Active Medications Generic Name Dose Route Start Last Admin Trade Name Freq PRN Reason Stop Dose Admin Heparin Sodium (Porcine) 5,000 unit 08/28/17 22:00 08/30/17 06:10 Heparin - SQ 5,000 unit TID HERNAN Administration CEA 5.5 Surg path 08/27: 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 Distal and prox ends tatooed, extensively biopsied. CT abdomen 08/25/17: Sigmoid diverticulosis. 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 The remainder of the exam demonstrates no obvious interval change. Bilateral inguinal hernias containing fat only. Very small umbilical hernia containing fat only. Small densities are again noted adjacent to the sigmoid colon and cecum which may be on a postsurgical or postprocedural basis versus representing incidental postinflammatory/postinfectious calcifications. Correlate clinically. Colonic fecal retention which is probably moderate. Status post hysterectomy CXR: no acute pathology EKG: NSR, 64 bpm, qt/qtc 394/406, no sondra/std, Q wave in V1, V2, V3. CT chest 08/28/17: No metastases ASSESSMENT/PLAN: The patient is a 57 year old female with a no significant PMH that presented to ED s/p two episodes of BRBPR found to have Invasive moderately differentiated adenoca of the colon with tubulovillous adenoma for likely erica-colectomy tomorrow. 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 Pathology report 08/27 above For erica-colectomy tomorrow Bowel prep and consent per surgery NPO after midnight Type and screen and 2u PRBCs perioperatively as needed Coags CBC Heparin held after evening dose Letter to [facility] provided to family- copy in pt's chart Further mx post sx per Hemonc based on pathol CEA above 5- points to prognosis No NSAIDS CT A/P/C with contrast no metastases For likely PET scan as an outpatient Per Hemonc- D/W family S/P GI bleeding likely lower: Rectal bleed resolved Now with mass 65cm from anal verge likely likely sigmoid; left colon carcinoma, pending biopsy results Colonoscopy done, see above ulceration for sx Consult Surgery- Per Dr Salvador - d/w the patient and her sister Emily; CEA- pending Anemia: Hgb stable No more rectal bleeding for now Type and screen and perioperative 2PRBCs pending for tomorrow Leukopenia: 3.2 Stable will monitor history of kidney stones: no visible nephrolithiasis on CT DVT PPX: sq heparin 5000 u tids -will be stopped after pm dose today for Sx, will restart following surgical clearance Dispo: Pending Sx for tomorrow Visit type - Emergency Visit Emergency Visit: Yes ED Registration Date: 08/25/17 Care time: The patient presented to the Emergency Department on the above date and was hospitalized for further evaluation of their emergent condition. - New Patient This patient is new to me today: No - Critical Care Critical Care patient: No - Discharge Referral Referred to [facility] Med P.C.: No
[2017-08-30 08:19] LABS: HEMATOCRIT 33.1 % (32.4-45.2); HEMOGLOBIN 11.4 GM/dL (10.7-15.3); MCH 29.9 pg (25.7-33.7); MCHC 34.5 g/dl (32.0-36.0); MEAN CELL VOLUME 86.5 fl (80-96); MEAN PLT VOLUME 8.5 fl (7.5-11.1); PLATELET COUNT 228 K/MM3 (134-434); RBC 3.83 M/mm3 (3.60-5.2); RDW 13.7 % (11.6-15.6); WHITE BLOOD COUNT 3.9 K/mm3 (4.0-10.0)
--- NOTE | 2017-08-30 12:10 | PN ---
Teaching Attending Note Name of Resident: Jenny Munguia ATTENDING PHYSICIAN STATEMENT I saw and evaluated the patient. I reviewed the resident's note and discussed the case with the resident. I agree with the resident's findings and plan as documented. SUBJECTIVE:asymptomatic. no BM in several days. denies Cp, SOB, fever, chills, N /V/C/D OBJECTIVE: Last Vital Signs Temp Pulse Resp BP Pulse Ox 98.4 F 61 18 137/75 100 08/30/17 06:00 08/30/17 06:00 08/30/17 06:00 08/30/17 06:00 08/29/17 21:00 General NAD ASSESSMENT AND PLAN: 57 yo F with no PMH with hematochezia 1. Acute lower gastrointestinal Haemorrhage- s/p colonoscopy with L sided mass seen 65cm from anal verge. showing invasive moderately differentiated adenocarcinoma. NPO tonight for resection in the AM. further management per surgery. 2. Acute blood loss anemia- Hgb stable. no reports of bleeding at this time. no indication for transfusion 3. constipation- start miralax 5. Leucopenia - stable. afebrile. low suspicion for infection. flow cytometry sent. hematology on board 6. DVT ppx- hep sq, hold in AM 7. spoke with niece over the phone. all questions answered.
--- NOTE | 2017-08-30 12:55 | PN ---
Progress Note, Physician History of Present Illness: Comfortable. No events. No bleeding. No pain. Moderately differentiated, invasive adenocarcinoma with background of tubulovillous adenoma. - Current Medication List Current Medications: Active Medications Heparin Sodium (Porcine) (Heparin -) 5,000 unit SQ TID [facility] Last Admin: 08/30/17 06:10 Dose: 5,000 unit Dextrose/Sodium Chloride (D5-Ns -) 1,000 mls @ 75 mls/hr IV ASDIR [facility] Metronidazole (Flagyl -) 500 mg PO ONCE ONE Stop: 08/30/17 12:43 Metronidazole (Flagyl -) 500 mg PO ONCE ONE Stop: 08/30/17 15:01 Metronidazole (Flagyl -) 500 mg PO ONCE ONE Stop: 08/30/17 22:01 Neomycin Sulfate (Mycifradin -) 1,000 mg PO 1400,1500,2200 [facility] Stop: 08/30/17 22:01 - Objective Vital Signs: Vital Signs Temperature 98.4 F 08/30/17 06:00 Pulse Rate 61 08/30/17 06:00 Respiratory Rate 18 08/30/17 06:00 Blood Pressure 137/75 08/30/17 06:00 O2 Sat by Pulse Oximetry (%) 100 08/29/17 21:00 Labs: CBC, BMP 08/30/17 07:35 08/29/17 07:00 INR, PTT INR 1.03 (0.82-1.09) 08/29/17 07:00 Problem List - Problems (1) Colonic mass Code(s): K63.9 - DISEASE OF INTESTINE, UNSPECIFIED (2) Anemia due to blood loss Code(s): D50.0 - IRON DEFICIENCY ANEMIA SECONDARY TO BLOOD LOSS (CHRONIC) Assessment/Plan oncology and surgery follow-up noted. Scheduled for Tumor resection on Sunday.
[2017-08-30] MEDS ORDERED: PEG3350/SOD SULF,BICARB,CL/KCL 4,000 ML SOLN.RECON PO ONE (13:00)
[2017-08-30] MEDS ORDERED: metroNIDAZOLE 500 MG TABLET PO ONE ×4 (13:15→22:00)
--- NOTE | 2017-08-30 13:22 | PN ---
Progress Note (short form) - Note Progress Note: Attending Surgeon No c/o; for sigmoid colon resection; possible left colectomy 08/31/17; r/b/t/a' s d/w the patient and with her daughter in [facility] via telephone; orders place for bowel prep and T and S; informed consent to be obtained. Tj Salvador MD FACS
[2017-08-30] MEDS ORDERED: PT OWN MED DRAWER 7, Y5N ONE ×3 (13:28→21:56)
[2017-08-30] MEDS: NEOMYCIN SO4 500 MG TABLET PO SCH ×3 (14:45→22:04)
[2017-08-31] MEDS ORDERED: DEXTROSE 5%-NORMAL SALINE 1,000 ML IV SCH (00:01)
--- NOTE | 2017-08-31 07:54 | PN ---
Physical Exam: SUBJECTIVE: Patient seen and examined. No new c/o did the bowel prep overnight. Had no bleeding per rectum. No fevers, no abdominal pain. OBJECTIVE: Vital Signs Period Temp Pulse Resp BP Sys/Greenwood Pulse Ox Last 24 Hr 97.9 F-98.5 F 66-72 18-18 131-150/84-90 96-99 Vital Signs Temp 98.1 F 08/31/17 06:00 Pulse 67 08/31/17 06:00 Resp 18 08/31/17 06:00 BP 150/90 08/31/17 06:00 Pulse Ox 96 08/30/17 21:00 Intake & Output 08/30/17 08/30/17 08/31/17 11:59 23:59 11:59 Intake Total 315 450 Balance 315 450 Intake: IV 75 450 D5-Ns - 1,000 ml @ 75 mls 75 450 /hr IV ASDIR HERNAN Rx#: [id number] SALINE LOCK 0 IVPB 0 Oral 240 Other: Voiding Method Toilet Toilet # Unmeasured Voids Void 1 2 Bowel Movement Yes # Bowel Movements 1 GENERAL: The patient is awake, alert, and fully oriented, in no acute distress. ENT: moist mucous membranes. NECK: full range of motion, supple. LUNGS: Breath sounds equal, clear to auscultation bilaterally, no wheezes, no crackles HEART: Regular rate and rhythm, S1, S2 without murmur. ABDOMEN: Soft, nontender, nondistended, normoactive bowel sounds EXTREMITIES: 2+ pulses, warm, well-perfused, no edema. NEUROLOGICAL: Cranial nerves II through XII grossly intact. Normal speech, normal gait Laboratory Results - last 24 hr 08/30/17 08/30/17 07:35 09:15 WBC 3.9 L RBC 3.83 Hgb 11.4 Hct 33.1 MCV 86.5 MCH 29.9 MCHC 34.5 RDW 13.7 Plt Count 228 MPV 8.5 Blood Type O POSITIVE Antibody Screen Negative Crossmatch See Detail Active Medications Generic Name Dose Route Start Last Admin Trade Name Freq PRN Reason Stop Dose Admin Alvimopan 12 mg 08/31/17 10:30 Entereg Capsule (Restricted) - PO 08/31/17 10:31 ONCE ONE Heparin Sodium (Porcine) 5,000 unit 08/28/17 22:00 08/30/17 22:04 Heparin - SQ 5,000 unit TID HERNAN Administration Dextrose/Sodium Chloride 1,000 mls @ 75 mls/hr 08/31/17 00:01 08/31/17 00:44 D5-Ns - IV 75 mls/hr ASDIR HERNAN Administration ASSESSMENT/PLAN: CEA 5.5 Surg path 08/27: 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 Distal and prox ends tatooed, extensively biopsied. CT abdomen 08/25/17: Sigmoid diverticulosis. 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 The remainder of the exam demonstrates no obvious interval change. Bilateral inguinal hernias containing fat only. Very small umbilical hernia containing fat only. Small densities are again noted adjacent to the sigmoid colon and cecum which may be on a postsurgical or postprocedural basis versus representing incidental postinflammatory/postinfectious calcifications. Correlate clinically. Colonic fecal retention which is probably moderate. Status post hysterectomy CXR: no acute pathology EKG: NSR, 64 bpm, qt/qtc 394/406, no sondra/std, Q wave in V1, V2, V3. CT chest 08/28/17: No metastases ASSESSMENT/PLAN: The patient is a 57 year old female with a no significant PMH that presented to ED s/p two episodes of BRBPR found to have Invasive moderately differentiated adenoca of the colon with tubulovillous adenoma for likely erica-colectomy . 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 For surgery today-11am Pathology report 08/27 above For erica-colectomy tomorrow Bowel prep and consent per surgery NPO after midnight Type and screen and 2u PRBCs perioperatively as needed Coags CBC Heparin held after evening dose Letter to [facility] provided to family- copy in pt's chart Further mx post sx per Hemonc based on pathol CEA above 5- points to prognosis No NSAIDS CT A/P/C with contrast no metastases For likely PET scan as an outpatient Per Hemonc- D/W family S/P GI bleeding likely lower: Rectal bleed resolved Mass 65cm from anal verge likely likely sigmoid; left colon carcinoma, - invasive mod differentiaated adenocarcinoma- see above Colonoscopy done, see above ulceration for sx Consult Surgery- Per Dr Salvador - d/w the patient and her sister Emily; CEA- pending Anemia: Hgb stable No more rectal bleeding for now Type and screen and perioperative 2PRBCs pending for tomorrow Leukopenia: 3.2 Stable will monitor history of kidney stones: no visible nephrolithiasis on CT Dispo: for surgery today Visit type - Emergency Visit Emergency Visit: Yes ED Registration Date: 08/25/17 Care time: The patient presented to the Emergency Department on the above date and was hospitalized for further evaluation of their emergent condition. - New Patient This patient is new to me today: No - Critical Care Critical Care patient: No - Discharge Referral Referred to [facility] Med P.C.: No
[2017-08-31] MEDS ORDERED: ALVIMOPAN 12 MG CAP PO ONE ×2 (08:00→10:30)
[2017-08-31 08:39] LABS: HEMATOCRIT 31.9 % (32.4-45.2); HEMOGLOBIN 11.1 GM/dL (10.7-15.3); MCH 29.9 pg (25.7-33.7); MCHC 34.8 g/dl (32.0-36.0); MEAN PLT VOLUME 8.3 fl (7.5-11.1); PLATELET COUNT 236 K/MM3 (134-434); RBC 3.71 M/mm3 (3.60-5.2); RDW 13.8 % (11.6-15.6); WHITE BLOOD COUNT 3.1 K/mm3 (4.0-10.0)
[2017-08-31 08:58] LABS: CHLORIDE 109 mmol/L (98-107); SODIUM 143 mmol/L (136-145)
[2017-08-31 09:01] LABS: INR 1.04 (0.82-1.09); PROTHROMBIN TIME (PATIENT) 11.8 SEC (9.7-13.0)
[2017-08-31 09:04] LABS: ACTIVATED PTT 43.8 SECONDS (26.9-34.4)
[2017-08-31 09:07] LABS: ANION GAP 7 (8-16); BLOOD UREA NITROGEN 11 mg/dL (7-18); CALCIUM 8.4 mg/dL (8.5-10.1); CO2 27 mmol/L (21-32); CREATININE 0.9 mg/dL (0.55-1.02); GLUCOSE,RANDOM 103 mg/dL (74-106); PHOSPHOROUS 3.2 mg/dL (2.5-4.9)
--- NOTE | 2017-08-31 09:52 | MSN ---
Progress Note (short form) - Note Progress Note: CHIEF COMPLAINT: GI bleed HISTORY OF PRESENT ILLNESS Overnight, patient did not have any acute events. Patient was given 3 doses of Flagyl and Neomycin yesterday. Patient was given bowel prep and had bowel movements overnight without blood. Patient was NPO since midnight in preparation for her bowel resection. Patient was seen and examined at the bedside. Patient was nervous about the surgery but stated she was in good spirits. Patient did not have acute complaints of chest pain, shortness of breath, abd pain, n/v/c/d, headaches, back pain, dizziness, blurry/double vision, weakness. Patient is scheduled for surgery with Dr. Salvador at 11:00. Smoking: denies Alcohol: occasional Drugs: denies REVIEW OF SYSTEMS CONSTITUTIONAL: Absent: fever, chills, diaphoresis, generalized weakness, malaise, loss of appetite, weight change HEENT: Absent: rhinorrhea, nasal congestion, throat pain, throat swelling, difficulty swallowing, mouth swelling, ear pain, eye pain, visual changes CARDIOVASCULAR: Absent: chest pain, syncope, palpitations, irregular heart rate, lightheadedness , peripheral edema RESPIRATORY: Absent: cough, shortness of breath, dyspnea with exertion, orthopnea, wheezing, stridor, hemoptysis GASTROINTESTINAL: Absent: abdominal pain, abdominal distension, nausea, vomiting, diarrhea, constipation, melena, hematochezia GENITOURINARY: Absent: dysuria, frequency, urgency, hesitancy, hematuria, flank pain, genital pain MUSCULOSKELETAL: Absent: myalgia, arthralgia, joint swelling, back pain, neck pain SKIN: Absent: rash, itching, pallor HEMATOLOGIC/IMMUNOLOGIC: Absent: easy bleeding, easy bruising, lymphadenopathy, frequent infections ENDOCRINE: Absent: unexplained weight gain, unexplained weight loss, heat intolerance, cold intolerance NEUROLOGIC: Absent: headache, focal weakness or paresthesias, dizziness, unsteady gait, seizure, mental status changes, bladder or bowel incontinence PSYCHIATRIC: Absent: anxiety, depression, suicidal or homicidal ideation, hallucinations. PHYSICAL EXAMINATION: GENERAL: Awake, alert, and fully oriented, nervous appearing. HEAD: Normal with no signs of trauma. LUNGS: Breath sounds equal, clear to auscultation bilaterally. No wheezes, and no crackles. No accessory muscle use. HEART: Regular rate and rhythm, normal S1 and S2 without murmur, rub or gallop. ABDOMEN: Soft, nontender, not distended, hyperactive bowel sounds, no guarding, no rebound, no masses. UPPER EXTREMITIES: 2+ pulses, warm, well-perfused. No cyanosis. No clubbing. Cap refill <2 seconds. No peripheral edema. LOWER EXTREMITIES: 2+ pulses, warm, well-perfused. No calf tenderness. No peripheral edema. PSYCHIATRIC: Cooperative. Good eye contact. Appropriate mood and affect. SKIN: Warm, dry, normal turgor, no rashes or lesions noted. Allergies Allergy/AdvReac Type Severity Reaction Status Date / Time No Known Allergies Allergy Verified 08/25/17 07:00 Last Vital Signs Temp Pulse Resp BP Pulse Ox 98.1 F 67 18 150/90 96 08/31/17 06:00 08/31/17 06:00 08/31/17 06:00 08/31/17 06:00 08/30/17 21:00 CBC, BMP 08/31/17 08:01 08/31/17 08:01 CMP Sodium 143 mmol/L (136-145) 08/31/17 08:01 Potassium 4.0 mmol/L (3.5-5.1) 08/31/17 08:01 Chloride 109 mmol/L (98-107) H 08/31/17 08:01 Carbon Dioxide 27 mmol/L (21-32) 08/31/17 08:01 Anion Gap 7 (8-16) L 08/31/17 08:01 BUN 11 mg/dL (7-18) 08/31/17 08:01 Creatinine 0.9 mg/dL (0.55-1.02) 08/31/17 08:01 Creat Clearance w eGFR 56.75 (>60) 08/29/17 07:00 Random Glucose 103 mg/dL (74-106) 08/31/17 08:01 Calcium 8.4 mg/dL (8.5-10.1) L 08/31/17 08:01 Phosphorus 3.2 mg/dL (2.5-4.9) 08/31/17 08:01 Magnesium 2.0 mg/dL (1.8-2.4) 08/31/17 08:01 Total Bilirubin 0.6 mg/dL (0.2-1.0) 08/29/17 07:00 AST 13 U/L (15-37) L 08/29/17 07:00 ALT 13 U/L (12-78) 08/29/17 07:00 Alkaline Phosphatase 70 U/L (45-117) 08/29/17 07:00 Total Protein 5.9 g/dl (6.4-8.2) L 08/29/17 07:00 Albumin 3.0 g/dl (3.4-5.0) L 08/29/17 07:00 Carcinoembryonic Ag 5.2 ng/mL (0.0-4.7) H 08/28/17 06:30 Abnormal Lab Results 08/30/17 08/31/17 08/31/17 09:15 08:01 08:01 WBC Hct PTT (Actin FS) 43.8 H D Chloride 109 H Anion Gap 7 L Calcium 8.4 L Crossmatch See Detail 08/31/17 08:01 WBC 3.1 L Hct 31.9 L PTT (Actin FS) Chloride Anion Gap Calcium Crossmatch INR, PTT INR 1.04 (0.82-1.09) 08/31/17 08:01 Active Medications Generic Name Dose Route Start Last Admin Trade Name Freq PRN Reason Stop Dose Admin Alvimopan 12 mg 08/31/17 10:30 08/31/17 09:41 Entereg Capsule (Restricted) - PO 08/31/17 10:31 12 mg ONCE ONE Administration Heparin Sodium (Porcine) 5,000 unit 08/28/17 22:00 08/30/17 22:04 Heparin - SQ 5,000 unit TID HERNAN Administration Dextrose/Sodium Chloride 1,000 mls @ 75 mls/hr 08/31/17 00:01 08/31/17 00:44 D5-Ns - IV 75 mls/hr ASDIR HERNAN Administration Microbiology 08/25/17 08:30 Urine - Urine Clean Catch Urine Culture - Final NO GROWTH OBTAINED IMAGING CHEST X-RAY: no acute pathology CHEST CT: normal chest CT with no evidence of metastasis or acute abnormalities ABDOMEN/PELVIS CT: sigmoid diverticuli, 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 Tubulovillous adenocarcinoma - imaging as above - CEA 5.5 - surgery scheduled with Dr. Salvador - NPO, bowel prep, abx - INR stable - 2 units of blood perioperative as needed - adjuvant therapy per Heme/Onc after pathology report post surgery - will likely need PET scan outpatient Rectal Bleed - no further bleeding episodes - workup done to remove adenocarcinoma as above Anemia - H/H stable - 2 units of blood perioperatively as needed Leukopenia - stable - 08/31 WBC 3.1 DVT PPx - heparin 5000 units subq tid - held prior to surgery F/E/N - no fluids currently - electrolytes within normal limits - replete as necessary - NPO for surgery Disposition - admitted to med-surg - hemicolectomy to be performed
[2017-08-31] MEDS ORDERED: MIDAZOLAM HCL 2 MG/2 ML SINGLE DOSE VIAL ONE ×2 (10:23)
[2017-08-31] MEDS ORDERED: fentaNYL CITRATE 250 MCG/5 ML VIAL ONE (10:23)
[2017-08-31] MEDS ORDERED: PROPOFOL 20 ML ONE (10:23)
[2017-08-31] MEDS ORDERED: ROCURONIUM BROMIDE 50 MG/5 ML VIAL ONE ×3 (10:24→11:26)
--- NOTE | 2017-08-31 10:24 | PN ---
Teaching Attending Note Name of Resident: Jenny Munguia ATTENDING PHYSICIAN STATEMENT I saw and evaluated the patient. I reviewed the resident's note and discussed the case with the resident. I agree with the resident's findings and plan as documented. SUBJECTIVE:asymptomatic. had multiple BM yesterday. denies CP, SOB, fever, chills, N/V/C/D OBJECTIVE: Last Vital Signs Temp Pulse Resp BP Pulse Ox 98.1 F 67 18 150/90 96 08/31/17 06:00 08/31/17 06:00 08/31/17 06:00 08/31/17 06:00 08/30/17 21:00 General NAD ASSESSMENT AND PLAN: 57 yo F with no PMH with hematochezia 1. Acute lower gastrointestinal Haemorrhage- s/p colonoscopy with L sided mass seen 65cm from anal verge. showing invasive moderately differentiated adenocarcinoma. received prophylactic Flagyl yesterday and bowel prep. NPO for resection. further management per surgery. 2. Acute blood loss anemia- Hgb stable. no reports of bleeding at this time. no indication for transfusion 3. constipation- multiple BM 4. Leucopenia - stable. afebrile. low suspicion for infection. flow cytometry sent. hematology on board 5. DVT ppx- hep sq, hold for surgery
[2017-08-31] MEDS ORDERED: ERTAPENEM SODIUM 1 GM VIAL IVPB ONE (10:46)
[2017-08-31] MEDS ORDERED: ERTAPENEM SODIUM 1 GM VIAL ONE (10:52)
[2017-08-31] MEDS ORDERED: GLYCOPYRROLATE 0.2 MG/1 ML VIAL ONE (12:56)
[2017-08-31] MEDS ORDERED: NEOSTIGMINE METHYLSULFATE 0.5 MG/ML - 10 ML MDV ONE (12:56)
--- NOTE | 2017-08-31 13:25 | OP ---
Operative Note - Note: Operative Date: 08/31/17 Pre-Operative Diagnosis: Adenocarcinoma of colon Operation: Rt hemicolectomy Surgeon: Tj Salvador Feature Writer: Abraham Clayton Anesthesia: General Estimated Blood Loss (mls): 100 Fluid Volume Replaced (mls): 2,000 Operative Report Dictated: Yes
--- NOTE | 2017-08-31 13:26 | SURG ---
Surgery [employer] Note [employer]: Abraham Clayton PA-C Date of Service: 08/31/17 Diagnosis: adenocarcinoma of the colon Procedure: Right hemicolectomy I was present for the entirety of the operative procedure. For further detail, please refer to operative report.
[2017-08-31] MEDS ORDERED: ONDANSETRON 4 MG/2 ML VIAL IVPUSH PRN ×2 (13:36→13:37)
[2017-08-31] MEDS ORDERED: DEXAMETHASONE SOD PHOSPHATE 4 MG/1 ML VIAL IVPUSH PRN (13:37)
[2017-08-31] MEDS ORDERED: PROMETHAZINE HCL 25 MG/1 ML VIAL IVPB PRN (13:37)
[2017-08-31] MEDS ORDERED: LACTATED RINGERS SOLUTION 1,000 ML IV SCH (13:45)
[2017-08-31] MEDS ORDERED: ONDANSETRON 4 MG/2 ML VIAL ONE (14:20)
[2017-08-31] MEDS ORDERED: HYDROmorphone *PCA* 10MG/50ML DISP.SYRIN PCA ONE (14:20)
--- NOTE | 2017-08-31 14:29 | PROC ---
Endoscopy Procedure Endoscopy procedure completed. Please see scanned procedure report.
[2017-08-31] MEDS: DEXTROSE 5%-NORMAL SALINE 1,000 ML IV SCH (16:01)
[2017-08-31] MEDS: HYDROmorphone *PCA* 10MG/50ML DISP.SYRIN PCA SCH (19:01)
--- NOTE | 2017-08-31 19:59 | PN ---
Progress Note (short form) - Note Progress Note: PAtient seen and examined Denies any complaints Last Vital Signs Temp Pulse Resp BP Pulse Ox 98.4 F 64 20 144/70 98 08/31/17 20:42 08/31/17 20:42 08/31/17 20:42 08/31/17 20:42 08/31/17 17:39 Cor: RSR, No murmurs, No gallops Lungs: Clear to P&A Abd: Soft, Normal bowel sounds, No organomegaly Ext:No significant edema Abnormal Lab Results 08/31/17 08/31/17 08/31/17 08:01 08:01 08:01 WBC 3.1 L Hct 31.9 L PTT (Actin FS) 43.8 H D Chloride 109 H Anion Gap 7 L Calcium 8.4 L Active Medications Alvimopan (Entereg Capsule (Restricted) -) 12 mg PO BID [facility] Stop: 09/08/17 10:01 Dexamethasone Sodium Phosphate (Decadron Injection -) 4 mg IVPUSH ONCE PRN PRN Reason: NAUSEA AND/OR VOMITING Diphenhydramine HCl (Benadryl Injection -) 12.5 mg IVPUSH ONCE PRN PRN Reason: FOR ITCHING Heparin Sodium (Porcine) (Heparin -) 5,000 unit SQ TID HERNAN Hydromorphone HCl (Dilaudid Counselor Aide -) 10 mg TIME CHECKER TIME CHECKER HERNAN PRN Reason: Protocol Stop: 09/07/17 13:37 Last Admin: 08/31/17 19:01 Dose: Not Given Dextrose/Sodium Chloride (D5-Ns -) 1,000 mls @ 75 mls/hr IV ASDIR [facility] Last Admin: 08/31/17 16:01 Dose: 75 mls/hr Ondansetron HCl (Zofran Injection) 4 mg IVPUSH Q6H PRN PRN Reason: NAUSEA AND/OR VOMITING Last Admin: 08/31/17 15:57 Dose: 4 mg Ondansetron HCl (Zofran Injection) 4 mg IVPUSH Q4H PRN PRN Reason: NAUSEA AND/OR VOMITING Promethazine HCl (Phenergan Injection -) 12.5 mg IVPB Q6H PRN PRN Reason: NAUSEA AND/OR VOMITING A/P 57-year-old female with no significant past medical history presents with rectal bleeding. Colonoscopy revealed ulcerated mass at 65 cm. Path with Invasive adenoca of the Colon mass CT a/p --angiomyolipoma 1.2cm increased from 0.9cm in 2015 CT chest--no mets CEA 5.5 s/p right hemicolectomy today await path report to decide on adjuvant therapy
[2017-08-31] MEDS ORDERED: ALVIMOPAN 12 MG CAP PO SCH (22:00)
[2017-08-31] MEDS: HEPARIN NA (PORCINE) 5,000 UNITS/ML 1ML VIAL SQ SCH (22:00)
[2017-09-01] MEDS: DEXTROSE 5%-NORMAL SALINE 1,000 ML IV SCH ×3 (06:17→21:56)
[2017-09-01] MEDS: HEPARIN NA (PORCINE) 5,000 UNITS/ML 1ML VIAL SQ SCH ×3 (06:18→21:56)
[2017-09-01 07:34] LABS: HEMATOCRIT 29.6 % (32.4-45.2); HEMOGLOBIN 10.2 GM/dL (10.7-15.3); MCH 29.8 pg (25.7-33.7); MCHC 34.5 g/dl (32.0-36.0); MEAN CELL VOLUME 86.3 fl (80-96); MEAN PLT VOLUME 8.5 fl (7.5-11.1); PLATELET COUNT 217 K/MM3 (134-434); RBC 3.43 M/mm3 (3.60-5.2); RDW 13.8 % (11.6-15.6); WHITE BLOOD COUNT 8.8 K/mm3 (4.0-10.0)
[2017-09-01 08:26] LABS: CHLORIDE 109 mmol/L (98-107); POTASSIUM 4.1 mmol/L (3.5-5.1); SODIUM 142 mmol/L (136-145)
[2017-09-01 08:53] LABS: ANION GAP 7 (8-16); BLOOD UREA NITROGEN 9 mg/dL (7-18); CALCIUM 8.5 mg/dL (8.5-10.1); CO2 26 mmol/L (21-32); CREATININE 0.9 mg/dL (0.55-1.02); GLUCOSE,RANDOM 122 mg/dL (74-106); MAGNESIUM 1.7 mg/dL (1.8-2.4); PHOSPHOROUS 3.1 mg/dL (2.5-4.9)
--- NOTE | 2017-09-01 09:50 | PN ---
Progress Note (short form) - Note Progress Note: POD #1 - s/p colon resection under GA with dilaudid BENEFIT DIRECTOR for postop pain management. VSS. Pt. doing well, resting comfortably in bed. No complaints. Good pain control. No apparent anesthetic complications noted. Will continue BENEFIT DIRECTOR for now.
[2017-09-01] MEDS ORDERED: PT OWN MED DRAWER 7, Y5N ONE ×2 (10:23→19:52)
[2017-09-01] MEDS: ALVIMOPAN 12 MG CAP PO SCH ×2 (10:25→21:56)
--- NOTE | 2017-09-01 10:26 | PN ---
Progress Note (short form) - Note Progress Note: Attending Surgeon POD #1 s/p ileocolic resection In bed; c/o SAAVEDRA; noc; taylor is out VSS AF abdomen-dressing c/d/i; not distended; soft; BS absent extrems-warm; no calf tenderness Labs noted IMP: doing well POD #! PLAN: OOB; EC and DB; entereg; NPO/IVF Tj Salvador MD FACS
--- NOTE | 2017-09-01 12:37 | PN ---
Progress Note (short form) - Note Progress Note: c/o SAAVEDRA which she had this AM which resolved with ice pack. some slight lower abdominal discomfort controlled iw pain medications. denies Cp, SOB, fever, chills, N/V/C/D, no flatus Current Medications Generic Name Dose Route Start Last Admin Trade Name Freq PRN Reason Stop Dose Admin Alvimopan 12 mg 09/01/17 10:00 09/01/17 10:25 Entereg Capsule (Restricted) - PO 09/08/17 10:01 12 mg BID HERNAN Administration Dexamethasone Sodium Phosphate 4 mg 08/31/17 13:37 Decadron Injection - IVPUSH ONCE PRN NAUSEA AND/OR VOMITING Diphenhydramine HCl 12.5 mg 08/31/17 13:37 Benadryl Injection - IVPUSH ONCE PRN FOR ITCHING Heparin Sodium (Porcine) 5,000 unit 08/31/17 22:00 09/01/17 06:18 Heparin - SQ 5,000 unit TID HERNAN Administration Hydromorphone HCl 10 mg 08/31/17 13:45 08/31/17 19:01 Dilaudid Kier Operator - TRASH COLLECTOR TRUCK DRIVER 09/07/17 13:37 Not Given TRASH COLLECTOR TRUCK DRIVER HERNAN Protocol Dextrose/Sodium Chloride 1,000 mls @ 75 mls/hr 08/31/17 14:06 09/01/17 06:17 D5-Ns - IV 75 mls/hr ASDIR HERNAN Administration Ondansetron HCl 4 mg 08/31/17 13:36 08/31/17 15:57 Zofran Injection IVPUSH 4 mg Q6H PRN Administration NAUSEA AND/OR VOMITING Ondansetron HCl 4 mg 08/31/17 13:37 Zofran Injection IVPUSH Q4H PRN NAUSEA AND/OR VOMITING Promethazine HCl 12.5 mg 08/31/17 13:37 Phenergan Injection - IVPB Q6H PRN NAUSEA AND/OR VOMITING Last Vital Signs Temp Pulse Resp BP Pulse Ox 99.4 F 74 18 155/90 99 09/01/17 09:00 09/01/17 09:00 09/01/17 09:00 09/01/17 09:00 09/01/17 09:00 General NAD cv S1 S2 + Lungs CTA anteriorly Abdomen soft. non tender no BS. midline surgical dressing c/d/i CBCD WBC 8.8 K/mm3 (4.0-10.0) D 09/01/17 06:00 RBC 3.43 M/mm3 (3.60-5.2) L 09/01/17 06:00 Hgb 10.2 GM/dL (10.7-15.3) L 09/01/17 06:00 Hct 29.6 % (32.4-45.2) L 09/01/17 06:00 MCV 86.3 fl (80-96) 09/01/17 06:00 MCHC 34.5 g/dl (32.0-36.0) 09/01/17 06:00 RDW 13.8 % (11.6-15.6) 09/01/17 06:00 Plt Count 217 K/MM3 (134-434) 09/01/17 06:00 MPV 8.5 fl (7.5-11.1) 09/01/17 06:00 CMP Sodium 142 mmol/L (136-145) 09/01/17 06:00 Potassium 4.1 mmol/L (3.5-5.1) 09/01/17 06:00 Chloride 109 mmol/L (98-107) H 09/01/17 06:00 Carbon Dioxide 26 mmol/L (21-32) 09/01/17 06:00 Anion Gap 7 (8-16) L 09/01/17 06:00 BUN 9 mg/dL (7-18) 09/01/17 06:00 Creatinine 0.9 mg/dL (0.55-1.02) 09/01/17 06:00 Creat Clearance w eGFR 56.75 (>60) 08/29/17 07:00 Calcium 8.5 mg/dL (8.5-10.1) 09/01/17 06:00 Total Bilirubin 0.6 mg/dL (0.2-1.0) 08/29/17 07:00 AST 13 U/L (15-37) L 08/29/17 07:00 ALT 13 U/L (12-78) 08/29/17 07:00 Alkaline Phosphatase 70 U/L (45-117) 08/29/17 07:00 Total Protein 5.9 g/dl (6.4-8.2) L 08/29/17 07:00 Albumin 3.0 g/dl (3.4-5.0) L 08/29/17 07:00 ASSESSMENT AND PLAN: 57 yo F with no PMH with hematochezia 1. Invasive adenocarcinoma of the colon- s/p R hemicolectomy 08/31. received prophylactic abx. tolerated surgery well. cont NPO until return of bowel function, IVF, pain control with TRASH COLLECTOR TRUCK DRIVER pump. surgery on board. 2. Acute blood loss anemia- slight downtrend in Hgb. likely due to surgery. will monitor for now. no indication for txn at this time. 3. SAAVEDRA- liekly hunger induced. resolved with ice pack. will monitor for now. tylenol prn 4. constipation- multiple BM on . will monitor for return of bowel fucntion. 5. Leucopenia - stable. afebrile. low suspicion for infection. flow cytometry sent. hematology on board 6. DVT ppx- hep sq Visit type - Emergency Visit Emergency Visit: Yes ED Registration Date: 08/25/17 Care time: The patient presented to the Emergency Department on the above date and was hospitalized for further evaluation of their emergent condition. - New Patient This patient is new to me today: No - Critical Care Critical Care patient: No - Discharge Referral Referred to [facility] Med P.C.: No
[2017-09-01] MEDS ORDERED: MAGNESIUM SULF 50% (8.12 MEQ/2 ML-1 GM VIAL) IVPB ONE (14:45)
[2017-09-01] MEDS: HYDROmorphone *PCA* 10MG/50ML DISP.SYRIN PCA SCH (16:12)
[2017-09-02] MEDS: HEPARIN NA (PORCINE) 5,000 UNITS/ML 1ML VIAL SQ SCH ×3 (05:59→21:57)
[2017-09-02 08:47] LABS: HEMATOCRIT 29.8 % (32.4-45.2); MCH 28.9 pg (25.7-33.7); MCHC 33.6 g/dl (32.0-36.0); MEAN CELL VOLUME 86.1 fl (80-96); MEAN PLT VOLUME 9.1 fl (7.5-11.1); PLATELET COUNT 226 K/MM3 (134-434); RBC 3.47 M/mm3 (3.60-5.2); WHITE BLOOD COUNT 6.2 K/mm3 (4.0-10.0)
[2017-09-02 08:49] LABS: ANION GAP 5 (8-16); BLOOD UREA NITROGEN 8 mg/dL (7-18); CALCIUM 8.3 mg/dL (8.5-10.1); CHLORIDE 110 mmol/L (98-107); CO2 29 mmol/L (21-32); GLUCOSE,RANDOM 100 mg/dL (74-106); MAGNESIUM 2.4 mg/dL (1.8-2.4); POTASSIUM 3.9 mmol/L (3.5-5.1); SODIUM 144 mmol/L (136-145)
[2017-09-02 09:53] LABS: CREATININE 0.8 mg/dL (0.55-1.02)
[2017-09-02] MEDS ORDERED: PT OWN MED DRAWER 7, Y5N ONE (09:55)
[2017-09-02] MEDS: ALVIMOPAN 12 MG CAP PO SCH ×2 (09:58→21:56)
--- NOTE | 2017-09-02 11:09 | PN ---
Progress Note (short form) - Note Progress Note: Attending Surgeon POD #2 No c/o; has been OOB and ambulating; no flatus abdomen-soft; incision c/d/i; o/w negative WBC-wnl IMP: doing well PLAN: Continue present tx.; await return of bowel function. Tj Salvador MD FACS
[2017-09-02] MEDS: DEXTROSE 5%-NORMAL SALINE 1,000 ML IV SCH ×2 (12:05→14:28)
--- NOTE | 2017-09-02 14:00 | PN ---
Physical Exam: SUBJECTIVE: Patient seen and examined at bedside. She feels the same as yesterday. Abdomen still operator. No flatus. No BM. OBJECTIVE: Vital Signs Period Temp Pulse Resp BP Sys/[place] Pulse Ox Last 24 Hr 98.2 F-99.4 F 57-92 16-20 128-164/67-90 96-97 GENERAL: The patient is awake, alert, and fully oriented, in no acute distress. HEAD: Normal with no signs of trauma. EYES: sclera anicteric, conjunctiva clear. No ptosis. ENT: oropharynx clear without exudates, moist mucous membranes. NECK: Trachea midline, full range of motion, supple. LUNGS: Breath sounds equal, clear to auscultation bilaterally, no wheezes, no crackles, no accessory muscle use. HEART: Regular rate and rhythm, S1, S2 without murmur, rub or gallop. ABDOMEN: Soft, tender to palpation, surgical dressing midline cdi, nondistended , bowel sounds heard, no guarding, no rebound, no hepatosplenomegaly, no masses. EXTREMITIES: 2+ pulses, warm, well-perfused, no edema. NEUROLOGICAL: Cranial nerves II through XII grossly intact. Normal speech, gait not observed. PSYCH: Normal mood, normal affect. SKIN: Warm, dry, normal turgor, no rashes or lesions noted Laboratory Results - last 24 hr 08/30/17 09/02/17 09/02/17 09:15 07:30 07:30 WBC 6.2 RBC 3.47 L Hgb 10.0 L Hct 29.8 L MCV 86.1 MCH 28.9 MCHC 33.6 RDW 14.0 Plt Count 226 MPV 9.1 Sodium 144 Potassium 3.9 Chloride 110 H Carbon Dioxide 29 Anion Gap 5 L BUN 8 Creatinine 0.8 Random Glucose 100 Calcium 8.3 L Magnesium 2.4 Blood Type O POSITIVE Antibody Screen Negative Crossmatch See Detail Active Medications Generic Name Dose Route Start Last Admin Trade Name Freq PRN Reason Stop Dose Admin Alvimopan 12 mg 09/01/17 10:00 09/02/17 09:58 Entereg Capsule (Restricted) - PO 09/08/17 10:01 12 mg BID HERNAN Administration Dexamethasone Sodium Phosphate 4 mg 08/31/17 13:37 Decadron Injection - IVPUSH ONCE PRN NAUSEA AND/OR VOMITING Diphenhydramine HCl 12.5 mg 08/31/17 13:37 Benadryl Injection - IVPUSH ONCE PRN FOR ITCHING Heparin Sodium (Porcine) 5,000 unit 08/31/17 22:00 09/02/17 05:59 Heparin - SQ 5,000 unit TID HERNAN Administration Hydromorphone HCl 10 mg 08/31/17 13:45 09/01/17 16:12 Dilaudid Manager Utilization Review - WOODWORKING BENCH CARPENTER 09/07/17 13:37 Not Given WOODWORKING BENCH CARPENTER HERNAN Protocol Dextrose/Sodium Chloride 1,000 mls @ 75 mls/hr 08/31/17 14:06 09/02/17 12:05 D5-Ns - IV 75 mls/hr ASDIR HERNAN Administration Ondansetron HCl 4 mg 08/31/17 13:36 08/31/17 15:57 Zofran Injection IVPUSH 4 mg Q6H PRN Administration NAUSEA AND/OR VOMITING Ondansetron HCl 4 mg 08/31/17 13:37 Zofran Injection IVPUSH Q4H PRN NAUSEA AND/OR VOMITING Promethazine HCl 12.5 mg 08/31/17 13:37 Phenergan Injection - IVPB Q6H PRN NAUSEA AND/OR VOMITING ASSESSMENT/PLAN: Pt is a 7 y/o F with no PMH who presented to ED with lower GIB. Pt was admitted for workup and found to have colon CA. #Invasive adeno CA of colon s/p R hemicolectomy (08/31/2017) POD #2 -successful procedure well tolerated. -WOODWORKING BENCH CARPENTER pump -No BM or flatus #Anemia -normocytic -slightly lower than yest -no indication for transfusion now #SAAVEDRA -no complaint of headache today -c/w tylenol PRN #Constipation -monitor for return of bowel function post-op #leukopenia -resolved -WBC > 6 today #FEN -D5 NS -lytes wnl -NPO except meds #PPx -HSQ #Dispo -Admitted for colon CA s/p resection Inocencio Tomas MD PGY-1 IM Visit type - Emergency Visit Emergency Visit: No - New Patient This patient is new to me today: Yes Date on this admission: 09/02/17 - Critical Care Critical Care patient: No - Discharge Referral Referred to [facility] Med P.C.: No
--- NOTE | 2017-09-02 14:27 | PN ---
Teaching Attending Note Name of Resident: Inocencio Tomas ATTENDING PHYSICIAN STATEMENT I saw and evaluated the patient. I reviewed the resident's note and discussed the case with the resident. I agree with the resident's findings and plan as documented. SUBJECTIVE: OBJECTIVE: ASSESSMENT AND PLAN: this is a 57 yo F with no PMH with hematochezia 1. Invasive adenocarcinoma of the colon- s/p R hemicolectomy 08/31. received prophylactic abx. tolerated surgery well. cont NPO until return of bowel function, IVF, pain control with FINISHING AREA OPERATOR pump. surgery on board. surgery saw the patiet today will continue the same management 2. Acute blood loss anemia- slight downtrend in Hgb. likely due to surgery. will monitor for now. no indication for txn at this time. 3. SAAVEDRA- likely hunger induced. resolved with ice pack. will monitor for now. tylenol prn 4. constipation- multiple BM on . will monitor for return of bowel function. 5. Leukopenia - resolved 6. DVT ppx- hep sq
[2017-09-02] MEDS: HYDROmorphone *PCA* 10MG/50ML DISP.SYRIN PCA SCH (14:28)
--- NOTE | 2017-09-02 17:27 | PN ---
Progress Note (short form) - Note Progress Note: Post op day 2, s/p colon resection. Patient comfortable on GARMENT SUPERVISOR, few demands, no nausea or vomiting, patient not on diet yet. Will continue GARMENT SUPERVISOR until patient tolerates a diet. Dept of anesthesiology will continue to monitor GARMENT SUPERVISOR use.
[2017-09-03] MEDS: DEXTROSE 5%-NORMAL SALINE 1,000 ML IV SCH ×2 (02:23→18:07)
[2017-09-03] MEDS: HEPARIN NA (PORCINE) 5,000 UNITS/ML 1ML VIAL SQ SCH ×3 (05:55→21:00)
[2017-09-03] MEDS: HYDROmorphone *PCA* 10MG/50ML DISP.SYRIN PCA SCH (06:26)
--- NOTE | 2017-09-03 08:17 | PN ---
Progress Note (short form) - Note Progress Note: Anesthesia Post op Pt seen and examined S:Alert and awake Comfortable O: Doing well post op Continue BUSINESS PLANNING MANAGER in reduced dose Reed Diaz MD Vital Signs Temperature 99.1 F 09/03/17 06:00 Pulse Rate 61 09/03/17 06:56 Respiratory Rate 18 09/03/17 06:56 Blood Pressure 147/77 09/03/17 06:56 O2 Sat by Pulse Oximetry (%) 96 09/02/17 21:00 CBC, BMP 09/02/17 07:30 09/02/17 07:30 Current Active Problems Anemia due to blood loss (Acute) Colonic mass (Acute) Diverticulosis (Acute) Leukopenia (Acute) A/P:s/p colon resection Doing well post op still NPO Continue BUSINESS PLANNING MANAGER Reed Diaz MD
[2017-09-03] MEDS ORDERED: PT OWN MED DRAWER 7, Y5N ONE ×2 (09:31→20:45)
[2017-09-03] MEDS: ALVIMOPAN 12 MG CAP PO SCH ×2 (09:32→21:00)
--- NOTE | 2017-09-03 10:30 | PN ---
Progress Note (short form) - Note Progress Note: Attending Surgeon POD #3 No c/o; feels like she has to pass gas; no nausea or vomiting VSS AF abdo-soft; incision c/d/i IMP: stable post op PLAN: Continue same tx. await return of bowel function Tj Salvador MD FACS
--- NOTE | 2017-09-03 12:00 | OP ---
DATE OF OPERATION: 08/31/2017 PREOPERATIVE DIAGNOSIS: Adenocarcinoma of the colon at 65 cm from the anal verge. POSTOPERATIVE DIAGNOSIS: Adenocarcinoma of the proximal and transverse colon. PROCEDURE: Ileocolic resection. SURGEON: Tj Salvador MD BUSINESS INTELLIGENCE DEVELOPER: Alvarado Clayton PA-C ANESTHESIA: General. ESTIMATED BLOOD LOSS: 100 mL. REPLACEMENT: 2000 mL crystalloid. SPECIMENS: Ileocolic resection to pathology. OPERATIVE FINDINGS: There was a noncircumferential lesion that had been previously biopsied and tattooed in the proximal transverse colon just to the right of the middle colic artery. There were several enlarged lymph nodes in the mesentery pending final pathology. There were adhesions from previous hysterectomy. Both ovaries were present, and the liver was unremarkable. The rest of the findings were unremarkable. DESCRIPTION OF PROCEDURE: The patient was placed on the operating room table in supine position. After the induction of general anesthesia and placement of a Nick catheter and sequential compression devices on the patient's lower extremities, the abdomen was prepped with ChloraPrep and draped in sterile fashion. The peritoneal cavity was entered through a midline incision starting above the umbilicus to just below. Exploration was carried out, and the previously noted findings were observed. The right colon was mobilized along the line of Toldt using electrocautery and blunt dissection. The hepatic flexure was taken down as well and omentum divided progressing towards the area past the lesion in the proximal transverse colon. The terminal ileum was divided using a ESTEPHANIE stapling device. Next, the mesentery was subsequently divided using a combination of the LigaSure and 0 silk ties. The transverse colon was divided 5 cm distal to the lesion and preserving the middle colic artery. The colon was divided using the ESTEPHANIE stapling device and then the specimen passed off the operative field and sent to pathological examination. Hemostasis was checked for and noted to be good and then anastomosis was carried out in a [id number] fashion using a ESTEPHANIE stapling device and closing the defect using a TA stapling device. Prior to closure with the TA stapling device, hemostasis was verified. The defect in the mesentery was then closed using continuous 2-0 Vicryl suture. Hemostasis was checked for and noted to be good and irrigation carried out and then the abdomen was closed in a single layer using continuous loop Maxon suture after changing gown, gloves, and instruments. The subcutaneous tissue was irrigated and the skin edges reapproximated using surgical danisha. Dry sterile dressings were placed and the procedure terminated at this point and the patient aroused from general anesthesia and transferred to the post anesthesia care unit in stable condition awake and alert. I, Tj Salvador, was physically present in the operating room from the time the patient was placed on the operating room table until she was transferred to the post anesthesia care unit in my [facility]. MD MICA Gomez/[id number] MTDD
--- NOTE | 2017-09-03 14:46 | PN ---
Physical Exam: SUBJECTIVE: Patient seen and examined. Yet to pass stool or flatus. No fever, no nausea/vomiting. Used the SUPERINTENDENT STEVEDORING last at night. OBJECTIVE: Vital Signs Period Temp Pulse Resp BP Sys/Greenwood Pulse Ox Last 24 Hr 97.4 F-99.8 F 57-96 16-20 145-170/74-89 96-96 Vital Signs Temp 98.8 F 09/03/17 16:53 Pulse 64 09/03/17 16:53 Resp 20 09/03/17 16:53 BP 152/89 09/03/17 16:53 Pulse Ox 96 09/03/17 09:00 Intake & Output 09/02/17 09/03/17 09/03/17 23:59 11:59 23:59 Intake Total 1450 1125 900 Output Total 700 Balance 750 1125 900 Weight 68.039 kg Intake: IV 900 1125 900 D5-Ns - 1,000 ml @ 75 mls 900 1125 900 /hr IV ASDIR HERNAN Rx#: [id number] IVPB 200 Packed Cells 350 Output: Urine 700 Void 700 Other: Voiding Method Toilet Toilet Toilet # Unmeasured Voids Void 1 1 1 Bowel Movement No No Height 1.68 m Body Mass Index (BMI) 24.2 GENERAL: The patient is awake, alert, and fully oriented, in no obvious painful distress. ENT: moist mucous membranes LUNGS: Breath sounds equal, clear to auscultation bilaterally, no wheezes, no crackles HEART: Regular rate and rhythm, S1, S2 ABDOMEN: Surgical dressing midline, clean dry, infraumbilical to suprapubic region. Mildly tender, BS present. EXTREMITIES: 2+ pulses, warm, well-perfused, no edema. NEUROLOGICAL: AAox 3. Normal muscle strength CBC, BMP 09/02/17 07:30 09/02/17 07:30 CBCD WBC 6.2 K/mm3 (4.0-10.0) 09/02/17 07:30 RBC 3.47 M/mm3 (3.60-5.2) L 09/02/17 07:30 Hgb 10.0 GM/dL (10.7-15.3) L 09/02/17 07:30 Hct 29.8 % (32.4-45.2) L 09/02/17 07:30 MCV 86.1 fl (80-96) 09/02/17 07:30 MCHC 33.6 g/dl (32.0-36.0) 09/02/17 07:30 RDW 14.0 % (11.6-15.6) 09/02/17 07:30 Plt Count 226 K/MM3 (134-434) 09/02/17 07:30 MPV 9.1 fl (7.5-11.1) 09/02/17 07:30 CMP Sodium 144 mmol/L (136-145) 09/02/17 07:30 Potassium 3.9 mmol/L (3.5-5.1) 09/02/17 07:30 Chloride 110 mmol/L (98-107) H 09/02/17 07:30 Carbon Dioxide 29 mmol/L (21-32) 09/02/17 07:30 Anion Gap 5 (8-16) L 09/02/17 07:30 BUN 8 mg/dL (7-18) 09/02/17 07:30 Creatinine 0.8 mg/dL (0.55-1.02) 09/02/17 07:30 Creat Clearance w eGFR 56.75 (>60) 08/29/17 07:00 Random Glucose 100 mg/dL (74-106) 09/02/17 07:30 Calcium 8.3 mg/dL (8.5-10.1) L 09/02/17 07:30 Total Bilirubin 0.6 mg/dL (0.2-1.0) 08/29/17 07:00 AST 13 U/L (15-37) L 08/29/17 07:00 ALT 13 U/L (12-78) 08/29/17 07:00 Alkaline Phosphatase 70 U/L (45-117) 08/29/17 07:00 Total Protein 5.9 g/dl (6.4-8.2) L 08/29/17 07:00 Albumin 3.0 g/dl (3.4-5.0) L 08/29/17 07:00 Laboratory Results - last 24 hr 08/30/17 09:15 Blood Type O POSITIVE Antibody Screen Negative Crossmatch See Detail Active Medications Generic Name Dose Route Start Last Admin Trade Name Freq PRN Reason Stop Dose Admin Alvimopan 12 mg 09/01/17 10:00 09/03/17 09:32 Entereg Capsule (Restricted) - PO 09/08/17 10:01 12 mg BID HERNAN Administration Dexamethasone Sodium Phosphate 4 mg 08/31/17 13:37 Decadron Injection - IVPUSH ONCE PRN NAUSEA AND/OR VOMITING Diphenhydramine HCl 12.5 mg 08/31/17 13:37 Benadryl Injection - IVPUSH ONCE PRN FOR ITCHING Heparin Sodium (Porcine) 5,000 unit 08/31/17 22:00 09/03/17 14:16 Heparin - SQ 5,000 unit TID HERNAN Administration Dextrose/Sodium Chloride 1,000 mls @ 75 mls/hr 08/31/17 14:06 09/03/17 02:23 D5-Ns - IV 75 mls/hr ASDIR HERNAN Administration Ondansetron HCl 4 mg 08/31/17 13:36 08/31/17 15:57 Zofran Injection IVPUSH 4 mg Q6H PRN Administration NAUSEA AND/OR VOMITING Ondansetron HCl 4 mg 08/31/17 13:37 Zofran Injection IVPUSH Q4H PRN NAUSEA AND/OR VOMITING Promethazine HCl 12.5 mg 08/31/17 13:37 Phenergan Injection - IVPB Q6H PRN NAUSEA AND/OR VOMITING CEA 5.5 Surg path 08/27: 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 Distal and prox ends tatooed, extensively biopsied. CT abdomen 08/25/17: Sigmoid diverticulosis. 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 The remainder of the exam demonstrates no obvious interval change. Bilateral inguinal hernias containing fat only. Very small umbilical hernia containing fat only. Small densities are again noted adjacent to the sigmoid colon and cecum which may be on a postsurgical or postprocedural basis versus representing incidental postinflammatory/postinfectious calcifications. Correlate clinically. Colonic fecal retention which is probably moderate. Status post hysterectomy CXR: no acute pathology EKG: NSR, 64 bpm, qt/qtc 394/406, no sondra/std, Q wave in V1, V2, V3. 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 Postop Day 3 Pain mx via SUPERINTENDENT STEVEDORING per anesthesia CBC Resume Heparin Further mx post sx per Hemonc based on pathol Pending return of bowel function per surgery for diet Cont iv fluids S/P GI bleeding likely lower: Rectal bleed resolved Anemia: Hgb-10.0 No more rectal bleeding for now No intraop transfusion CBC Leukopenia: Resolved s/p surgery Stable will monitor history of kidney stones: no visible nephrolithiasis on CT FEN Cont iv fluids pending diet Monitor lytes NPO till bowel function returns Dispo: For possible D/C tomorrow Visit type - Emergency Visit Emergency Visit: Yes ED Registration Date: 08/25/17 Care time: The patient presented to the Emergency Department on the above date and was hospitalized for further evaluation of their emergent condition. - New Patient This patient is new to me today: No - Critical Care Critical Care patient: No - Discharge Referral Referred to [facility] Med P.C.: No
--- NOTE | 2017-09-03 16:53 | PN ---
Teaching Attending Note Name of Resident: Jenny Munguia ATTENDING PHYSICIAN STATEMENT I saw and evaluated the patient. I reviewed the resident's note and discussed the case with the resident. I agree with the resident's findings and plan as documented. SUBJECTIVE:asymptomatic. denies CP, SOB, fever, chills, N/V/C/D. no flatus OBJECTIVE: Last Vital Signs Temp Pulse Resp BP Pulse Ox 98.7 F 57 L 16 147/74 96 09/03/17 14:23 09/03/17 14:39 09/03/17 14:39 09/03/17 14:39 09/03/17 09:00 General NAD Abdomen soft NT/ND surgical dressing c/d/i +BS ASSESSMENT AND PLAN: 57 yo F with no PMH with hematochezia and found to have a mass in the colon + for adenocardicoma underwent R hemicolectomy 1. Invasive adenocarcinoma of the colon- s/p R hemicolectomy 08/31. return of Bowel sounds on exam. NPO. advance diet per surgery. cont IVF and pain control. 2. Acute blood loss anemia- hgb been stable. cehck iron studies. no indication for transfusion. 3. SAAVEDRA- liekly hunger induced. now resolved 4. constipation- multiple BM on . will monitor for return of bowel function. 5. Leucopenia - stable. afebrile. low suspicion for infection. flow cytometry sent. hematology on board 6. DVT ppx- hep sq
[2017-09-04] MEDS: HEPARIN NA (PORCINE) 5,000 UNITS/ML 1ML VIAL SQ SCH ×3 (06:26→23:00)
[2017-09-04] MEDS: DEXTROSE 5%-NORMAL SALINE 1,000 ML IV SCH ×2 (06:39→15:42)
--- NOTE | 2017-09-04 07:52 | PN ---
Progress Note (short form) - Note Progress Note: POD #3 Alert. Doing well. States she feels like she feels like she is about to pass flatus...nothing yet. (-) bm. She is oob and ambulating unassisted. Voiding spontaneously. Isn't using her HISTORIOGRAPHER anymore. Denies n/v/f/c, CP, SOB, weak or dizzy. Last Vital Signs Temp Pulse Resp BP Pulse Ox 98.4 F 67 18 131/78 96 09/04/17 06:00 09/04/17 06:00 09/04/17 06:00 09/04/17 06:00 09/03/17 21:00 CBC, BMP 09/02/17 07:30 09/02/17 07:30 Gen: alert. nad ABD: midline incision with danisha intact. + bs in all quadrants LE: soft. nt bilat Problem List - Problems (1) S/P right hemicolectomy Assessment/Plan: GI ppx HISTORIOGRAPHER dc'd Trial of clears Cont OOB and ambulate PO Pain management PRN DC Entereg once she passes flatus Above plan discussed with Dr. Salvador and agrees Code(s): Z90.49 - ACQUIRED ABSENCE OF OTHER SPECIFIED PARTS OF DIGESTIVE TRACT
[2017-09-04 08:19] LABS: HEMATOCRIT 31.7 % (32.4-45.2); HEMOGLOBIN 10.8 GM/dL (10.7-15.3); MCH 29.1 pg (25.7-33.7); MCHC 34.2 g/dl (32.0-36.0); MEAN PLT VOLUME 8.6 fl (7.5-11.1); PLATELET COUNT 225 K/MM3 (134-434); RBC 3.73 M/mm3 (3.60-5.2); RDW 13.3 % (11.6-15.6); WHITE BLOOD COUNT 3.6 K/mm3 (4.0-10.0)
[2017-09-04 08:44] LABS: CHLORIDE 109 mmol/L (98-107); POTASSIUM 3.7 mmol/L (3.5-5.1); SODIUM 142 mmol/L (136-145)
[2017-09-04] MEDS ORDERED: ACETAMINOPHEN 1000 MG/100 ML VIAL (NON FORMULARY) IVPB PRN (09:08)
[2017-09-04 09:54] LABS: ALBUMIN 2.9 g/dl (3.4-5.0); ALK PHOS 89 U/L (45-117); ANION GAP 8 (8-16); BILIRUBIN,TOTAL 1.1 mg/dL (0.2-1.0); BLOOD UREA NITROGEN 7 mg/dL (7-18); CALCIUM 8.5 mg/dL (8.5-10.1); CO2 25 mmol/L (21-32); CREATININE 0.8 mg/dL (0.55-1.02); GLUCOSE,RANDOM 104 mg/dL (74-106); MAGNESIUM 2.1 mg/dL (1.8-2.4); PHOSPHOROUS 3.5 mg/dL (2.5-4.9); SGOT/AST 228 U/L (15-37); SGPT/ALT 177 U/L (12-78); TOT PROT 6.1 g/dl (6.4-8.2)
[2017-09-04] MEDS ORDERED: PT OWN MED DRAWER 7, Y5N ONE ×2 (10:08→10:35)
[2017-09-04] MEDS: ALVIMOPAN 12 MG CAP PO SCH ×2 (10:36→22:50)
--- NOTE | 2017-09-04 16:44 | PATH ---
Surgical Pathology Report Patient Name: GOMEZ PLASCENCIA [facility]. Rec. #: [id number] /Age/Gender: 1960 (Age: 57) / F Account: [id number] Location: [facility] MED/SURG Taken: 08/31/2017 Received: 09/03/2017 Reported: 09/04/2017 Physicians: Stanley Hernandez MD Specimen(s) Received COLON Clinical History Adenocarcinoma of the colon Final Diagnosis TERMINAL ILEUM, CECUM, APPENDIX, AND COLON, ILEOCOLIC RESECTION: INVASIVE ADENOCARCINOMA, MODERATELY DIFFERENTIATED, IN ASSOCIATION WITH TUBULOVILLOUS ADENOMA. TUMOR MEASURES 2.6 x 2.5 CM (GROSS MEASUREMENT). TUMOR LOCATED AT PROXIMAL TRANVERSE COLON. TUMOR INVADES THROUGH THE MUSCULARIS PROPRIA INTO PERICOLORECTAL TISSUES. NO LYMPHOVASCULAR OR PERINEURAL INVASION IDENTIFIED. SURGICAL MARGINS ARE NEGATIVE. SEPARATE TUBULAR ADENOMA IDENTIFIED. APPENDIX WITHOUT SIGNIFICANT PATHOLOGIC FINDINGS. THIRTY THREE BENIGN LYMPH NODES (0/33). PATHOLOGIC STAGE: pT3 pN0. SEE INVASIVE SUMMARY BELOW. Comments Colorectal Carcinoma :Surgical Pathology Cancer Case Summary (Based on AJCC TNM 8 th edition) Procedure _X_ Other (specify): Ileocolic resection Tumor Site _X_ Transverse colon (proximal) Tumor Size Greatest dimension (centimeters): 2.6 x 2.5 cm Macroscopic Tumor Perforation _X_ Not identified Histologic Type _X_ Adenocarcinoma Histologic Grade _X_ G2: Moderately differentiated Tumor Extension _X_ Tumor invades through the muscularis propria into pericolorectal tissue Margins All margins are uninvolved by invasive carcinoma, high-grade dysplasia, intramucosal adenocarcinoma, and adenoma Margins examined: Proximal, distal, radial/mesenteric Treatment Effect _X_ No known presurgical therapy Lymphovascular Invasion _X_ Not identified Perineural Invasion _X_ Not identified Tumor Deposits _X_ Not identified Regional Lymph Nodes Lymph Node Examination Number of Lymph Nodes Involved: _0__ Number of Lymph Nodes Examined: _33__ Pathologic Stage Classification (pTNM, AJCC 8th Edition) Primary Tumor (pT) _X_ pT3: Tumor invades through the muscularis propria into pericolorectal tissues Regional Lymph Nodes (pN) _X_ pN0: No regional lymph node metastasis Electronically Signed Brittany Robertson M.D. Gross Description Received in formalin labeled "ileocolic resection," is a 4 cm in length portion of terminal ileum with an attached 19 cm in length previously opened portion of cecum and right colon. The terminal ileal mucosal margin is stapled and the distal mucosal margin is open. The serosa is jennings-estevez and smooth with abundant attached pericolonic adipose tissue. There is a 6 cm in length unremarkable vermiform appendix attached at the cecum. The mucosa displays a 2.6 x 2.5 cm jennings, centrally ulcerated polypoid mass at 3.5 cm from the distal mucosal margin of resection. The mass invades through the muscularis and to the serosa. No definite invasion into the pericolonic adipose tissue is identified grossly. The mass is 3.5 cm from the mesenteric margin of resection. There is a 0.4 cm in greatest dimension mucosal polyp in the proximal right colon, 1.5 cm distal from the ileocecal valve. The remaining mucosa is jennings with normal folds. Sectioning of the pericolonic adipose tissue reveals abundant jennings-brown lymph nodes ranging from 0.3-1.2 cm in greatest dimension. Dry Kiln Operator sections are submitted in 25 cassettes as follows: 1-terminal ileal proximal mucosal margin; 2-distal mucosal margin; 3-mesenteric margin of resection; 4-appendix; 5-8-mass; 9-proximal mucosal polyp; 10-uninvolved terminal ileum; 11-uninvolved distal right colon; 12-16-one whole bisected lymph node each; 51-60-xpabojzz whole lymph nodes each. 09/03/2017 [facility]
--- NOTE | 2017-09-04 16:48 | PN ---
Physical Exam: SUBJECTIVE: Patient seen and examined . Yet to pass flatus. Minimally using MUFFLER TENDER. used 0.2 overnight. No fevers. No bleeding. Using incentive spirometry OBJECTIVE: Vital Signs Period Temp Pulse Resp BP Sys/Greenwood Pulse Ox Last 24 Hr 98.4 F-99.2 F 64-69 18-20 131-159/78-92 96-97 Vital Signs Temp 99.2 F 09/04/17 15:37 Pulse 68 09/04/17 15:37 Resp 20 09/04/17 15:37 BP 158/92 09/04/17 15:37 Pulse Ox 97 09/04/17 09:00 Intake & Output 09/03/17 09/04/17 09/04/17 23:59 11:59 23:59 Intake Total 1125 675 Balance 1125 675 Intake: IV 1125 675 D5-Ns - 1,000 ml @ 75 mls 1125 675 /hr IV ASDIR HERNAN Rx#: [id number] Other: Voiding Method Toilet Toilet Toilet # Unmeasured Voids Void 1 1 GENERAL: The patient is awake, alert, and fully oriented, in no acute distress. ENT: moist mucous membranes. LUNGS: Breath sounds equal, clear to auscultation bilaterally HEART: Regular rate and rhythm, S1, S2 without murmur, rub or gallop. ABDOMEN: Midline abdominla dressing clean dry, no obvious drains. Appropriate tenderness. Soft, nontender, nondistended, normoactive bowel sounds, no guarding , no rebound, no hepatosplenomegaly, no masses. EXTREMITIES: 2+ pulses, warm, well-perfused, no edema. NEUROLOGICAL: Cranial nerves II through XII grossly intact. Normal speech, gait not observed. PSYCH: Normal mood, normal affect. SKIN: Warm, dry, normal turgor, no rashes or lesions noted CBC, BMP 09/04/17 07:35 09/04/17 06:30 Laboratory Results - last 24 hr 09/04/17 09/04/17 09/04/17 06:30 07:35 07:40 WBC 3.6 L D RBC 3.73 Hgb 10.8 Hct 31.7 L MCV 85.0 MCH 29.1 MCHC 34.2 RDW 13.3 Plt Count 225 MPV 8.6 Sodium 142 Potassium 3.7 Chloride 109 H Carbon Dioxide 25 Anion Gap 8 BUN 7 Creatinine 0.8 Creat Clearance w eGFR > 60 Random Glucose 104 Calcium 8.5 Phosphorus 3.5 Magnesium 2.1 Ferritin 91.365 Cancelled Total Bilirubin 1.1 H D AST 228 H ALT 177 H Alkaline Phosphatase 89 Total Protein 6.1 L Albumin 2.9 L Active Medications Generic Name Dose Route Start Last Admin Trade Name Freq PRN Reason Stop Dose Admin Acetaminophen 1,000 mg 09/04/17 09:08 09/04/17 10:30 Ofirmev Injection - IVPB 1,000 mg Q6H PRN Administration MODERATE PAIN Alvimopan 12 mg 09/01/17 10:00 09/04/17 10:36 Entereg Capsule (Restricted) - PO 09/08/17 10:01 12 mg BID HERNAN Administration Dexamethasone Sodium Phosphate 4 mg 08/31/17 13:37 Decadron Injection - IVPUSH ONCE PRN NAUSEA AND/OR VOMITING Diphenhydramine HCl 12.5 mg 08/31/17 13:37 Benadryl Injection - IVPUSH ONCE PRN FOR ITCHING Heparin Sodium (Porcine) 5,000 unit 08/31/17 22:00 09/04/17 15:42 Heparin - SQ 5,000 unit TID HERNAN Administration Dextrose/Sodium Chloride 1,000 mls @ 75 mls/hr 08/31/17 14:06 09/04/17 15:42 D5-Ns - IV Not Given ASDIR HERNAN Ondansetron HCl 4 mg 08/31/17 13:36 08/31/17 15:57 Zofran Injection IVPUSH 4 mg Q6H PRN Administration NAUSEA AND/OR VOMITING Ondansetron HCl 4 mg 08/31/17 13:37 Zofran Injection IVPUSH Q4H PRN NAUSEA AND/OR VOMITING Promethazine HCl 12.5 mg 08/31/17 13:37 Phenergan Injection - IVPB Q6H PRN NAUSEA AND/OR VOMITING CEA 5.5 Surg path 08/27: 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 Distal and prox ends tatooed, extensively biopsied. CT abdomen 08/25/17: Sigmoid diverticulosis. 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 The remainder of the exam demonstrates no obvious interval change. Bilateral inguinal hernias containing fat only. Very small umbilical hernia containing fat only. Small densities are again noted adjacent to the sigmoid colon and cecum which may be on a postsurgical or postprocedural basis versus representing incidental postinflammatory/postinfectious calcifications. Correlate clinically. Colonic fecal retention which is probably moderate. Status post hysterectomy CXR: no acute pathology EKG: NSR, 64 bpm, qt/qtc 394/406, no sondra/std, Q wave in V1, V2, V3. 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 Postop Day 4 MUFFLER TENDER per anesthesia -pt Will give iv tylenol pending PO ingestion CBC Resume Heparin Further mx post sx per Hemonc based on pathol Pending return of bowel function per surgery for diet Cont iv fluids Tabs tylenol 650mg Q6h S/P GI bleeding likely lower: Rectal bleed resolved HTN New onset HTN Hold fluids if PO intake is adequate If persisting- Tabs Norvasc 5mg daily Anemia: Hgb-10.8 No more rectal bleeding for now stable CBC Iron studies sent Leukopenia: 3.6 Stable will monitor history of kidney stones: no visible nephrolithiasis on CT PPx Cont subQ heparin FEN To stop fluids if taking PO adequately Dispo: For likely D/C tomorrow if tolerating orally Visit type - Emergency Visit Emergency Visit: Yes ED Registration Date: 08/25/17 Care time: The patient presented to the Emergency Department on the above date and was hospitalized for further evaluation of their emergent condition. - New Patient This patient is new to me today: No - Critical Care Critical Care patient: No - Discharge Referral Referred to [facility] Med P.C.: No
[2017-09-04] MEDS ORDERED: ACETAMINOPHEN 325 MG TABLET (FP) PO PRN (17:22)
--- NOTE | 2017-09-04 17:31 | PN ---
Teaching Attending Note Name of Resident: Jenny Munguia ATTENDING PHYSICIAN STATEMENT I saw and evaluated the patient. I reviewed the resident's note and discussed the case with the resident. I agree with the resident's findings and plan as documented with exceptions below. SUBJECTIVE: Patient seen and examined. abdominal pain better, no BM yet, no other complaints , Ambulating with no concerns. OBJECTIVE: Vital Signs Period Temp Pulse Resp BP Sys/Greenwood Pulse Ox Last 24 Hr 98.4 F-99.2 F 67-69 18-20 131-176/78-93 96-97 Intake & Output 09/01/17 09/02/17 09/03/17 09/04/17 23:59 23:59 23:59 23:59 Intake Total 2024 2125 2250 675 Output Total 2275 900 Balance -250 1225 2250 675 Weight 150 lb General: lying in bed in no acute distress Abdomen:soft, midline surgical incision clean, danisha, positive bowel sounds, minimal tenderness around the incision site, no voluntary or involuntary guarding or rigidity Home Medication List Medication Instructions Recorded Confirmed Type NK [No Known Home Medication] 08/06/15 08/25/17 History Active Medications Generic Name Dose Route Start Last Admin Trade Name Freq PRN Reason Stop Dose Admin Acetaminophen 1,000 mg 09/04/17 09:08 09/04/17 10:30 Ofirmev Injection - IVPB 1,000 mg Q6H PRN Administration MODERATE PAIN Acetaminophen 650 mg 09/04/17 17:22 Tylenol - PO Q6H PRN FEVER Alvimopan 12 mg 09/01/17 10:00 09/04/17 10:36 Entereg Capsule (Restricted) - PO 09/08/17 10:01 12 mg BID HERNAN Administration Dexamethasone Sodium Phosphate 4 mg 08/31/17 13:37 Decadron Injection - IVPUSH ONCE PRN NAUSEA AND/OR VOMITING Diphenhydramine HCl 12.5 mg 08/31/17 13:37 Benadryl Injection - IVPUSH ONCE PRN FOR ITCHING Heparin Sodium (Porcine) 5,000 unit 08/31/17 22:00 09/04/17 15:42 Heparin - SQ 5,000 unit TID HERNAN Administration Dextrose/Sodium Chloride 1,000 mls @ 75 mls/hr 08/31/17 14:06 09/04/17 15:42 D5-Ns - IV Not Given ASDIR HERNAN Ondansetron HCl 4 mg 08/31/17 13:36 08/31/17 15:57 Zofran Injection IVPUSH 4 mg Q6H PRN Administration NAUSEA AND/OR VOMITING Ondansetron HCl 4 mg 08/31/17 13:37 Zofran Injection IVPUSH Q4H PRN NAUSEA AND/OR VOMITING Promethazine HCl 12.5 mg 08/31/17 13:37 Phenergan Injection - IVPB Q6H PRN NAUSEA AND/OR VOMITING Laboratory Results - last 24 hr 09/04/17 09/04/17 09/04/17 06:30 07:35 07:40 WBC 3.6 L D RBC 3.73 Hgb 10.8 Hct 31.7 L MCV 85.0 MCH 29.1 MCHC 34.2 RDW 13.3 Plt Count 225 MPV 8.6 Sodium 142 Potassium 3.7 Chloride 109 H Carbon Dioxide 25 Anion Gap 8 BUN 7 Creatinine 0.8 Creat Clearance w eGFR > 60 Random Glucose 104 Calcium 8.5 Phosphorus 3.5 Magnesium 2.1 Ferritin 91.365 Cancelled Total Bilirubin 1.1 H D AST 228 H ALT 177 H Alkaline Phosphatase 89 Total Protein 6.1 L Albumin 2.9 L Microbiology 08/25/17 08:30 Urine - Urine Clean Catch Urine Culture - Final NO GROWTH OBTAINED ASSESSMENT AND PLAN: 57 yo F with no PMH with hematochezia and found to have a mass in the colon + for adenocardicoma underwent R hemicolectomy -Invasive adenocarcinome of colone s/p right hemicolectomy 08/31 -Hematochezia, due to above, resolved -Acute blood loss anemia, stable -Leucopenia, flow cytometry sent, Plan: Surgery input noted, clears, encourage ambulation and incentive spirometry. Monitor h/h. Trend CBC. DVTPPX heparin dispo in 24-48 hours if tolerating diet well, BM and no concerns. Outpatient oncology follow up. Plan discussed with patient in detail, all questions answered.
[2017-09-04 18:15] LABS: HEMATOCRIT 33.2 % (32.4-45.2); HEMOGLOBIN 11.1 GM/dL (10.7-15.3); MCH 28.5 pg (25.7-33.7); MCHC 33.5 g/dl (32.0-36.0); MEAN CELL VOLUME 85.1 fl (80-96); MEAN PLT VOLUME 9.3 fl (7.5-11.1); PLATELET COUNT 286 K/MM3 (134-434); RBC 3.91 M/mm3 (3.60-5.2); RDW 13.3 % (11.6-15.6); WHITE BLOOD COUNT 4.2 K/mm3 (4.0-10.0)
--- NOTE | 2017-09-04 23:30 | PN ---
Progress Note (short form) - Note Progress Note: Anesthesia/pain management follow up Patient tolerating po pain meds, tool design draftsperson discontinued. Management as per surgical/medical team.
--- NOTE | 2017-09-05 07:27 | PN ---
Physical Exam: SUBJECTIVE: Patient seen and examined. Had one episode of loose brown stools. Non bloody. Tolerated clears yesterday, no fevers. Pain is managed on PO tylenol. Ambulating. OBJECTIVE: Vital Signs Period Temp Pulse Resp BP Sys/Greenwood Pulse Ox Last 24 Hr 98.8 F-99.2 F 67-69 18-20 130-176/73-93 97 Vital Signs Temp 98.9 F 09/05/17 06:00 Pulse 67 09/05/17 06:00 Resp 20 09/05/17 09:00 BP 130/73 09/05/17 06:00 Pulse Ox 99 09/05/17 09:00 Intake & Output 09/04/17 09/05/17 09/05/17 23:59 11:59 23:59 Intake Total 1050 200 Balance 1050 200 Intake: IV 150 D5-Ns - 1,000 ml @ 75 mls 150 /hr IV ASDIR HERNAN Rx#: [id number] IVPB 100 Oral 800 200 Other: Voiding Method Toilet Toilet # Unmeasured Voids Void 2 1 Bowel Movement Yes Intake & Output 09/02/17 09/03/17 09/04/17 09/05/17 23:59 23:59 23:59 23:59 Intake Total 2125 2250 1725 200 Output Total 900 Balance 1225 2250 1725 200 Weight 68.039 kg GENERAL: The patient is awake, alert, and fully oriented, in no acute distress. ENT: moist mucous membranes. LUNGS: Breath sounds equal, clear to auscultation bilaterally HEART: Regular rate and rhythm, S1, S2 ABDOMEN: Midline surgical dressing intact. Clean, dry. Soft, minimal tenderness , nondistended, bowel sounds present EXTREMITIES: 2+ pulses, warm, well-perfused, no edema. NEUROLOGICAL: Cranial nerves II through XII grossly intact. Normal speech CBC, BMP 09/04/17 17:30 09/05/17 07:00 Laboratory Results - last 24 hr 09/04/17 09/04/17 09/04/17 06:30 07:35 07:40 WBC 3.6 L D RBC 3.73 Hgb 10.8 Hct 31.7 L MCV 85.0 MCH 29.1 MCHC 34.2 RDW 13.3 Plt Count 225 MPV 8.6 Sodium 142 Potassium 3.7 Chloride 109 H Carbon Dioxide 25 Anion Gap 8 BUN 7 Creatinine 0.8 Creat Clearance w eGFR > 60 Random Glucose 104 Calcium 8.5 Phosphorus 3.5 Magnesium 2.1 Ferritin 91.365 Cancelled Total Bilirubin 1.1 H D AST 228 H ALT 177 H Alkaline Phosphatase 89 Total Protein 6.1 L Albumin 2.9 L 09/04/17 17:30 WBC 4.2 RBC 3.91 Hgb 11.1 Hct 33.2 MCV 85.1 MCH 28.5 MCHC 33.5 RDW 13.3 Plt Count 286 D MPV 9.3 Sodium Potassium Chloride Carbon Dioxide Anion Gap BUN Creatinine Creat Clearance w eGFR Random Glucose Calcium Phosphorus Magnesium Ferritin Total Bilirubin AST ALT Alkaline Phosphatase Total Protein Albumin Active Medications Generic Name Dose Route Start Last Admin Trade Name Freq PRN Reason Stop Dose Admin Acetaminophen 1,000 mg 09/04/17 09:08 09/04/17 10:30 Ofirmev Injection - IVPB 1,000 mg Q6H PRN Administration MODERATE PAIN Acetaminophen 650 mg 09/04/17 17:22 Tylenol - PO Q6H PRN FEVER Alvimopan 12 mg 09/01/17 10:00 09/04/17 22:50 Entereg Capsule (Restricted) - PO 09/08/17 10:01 Not Given BID [facility] Dexamethasone Sodium Phosphate 4 mg 08/31/17 13:37 Decadron Injection - IVPUSH ONCE PRN NAUSEA AND/OR VOMITING Diphenhydramine HCl 12.5 mg 08/31/17 13:37 Benadryl Injection - IVPUSH ONCE PRN FOR ITCHING Heparin Sodium (Porcine) 5,000 unit 08/31/17 22:00 09/04/17 23:00 Heparin - SQ 5,000 unit TID HERNAN Administration Dextrose/Sodium Chloride 1,000 mls @ 75 mls/hr 08/31/17 14:06 09/04/17 15:42 D5-Ns - IV Not Given ASDIR HERNAN Ondansetron HCl 4 mg 08/31/17 13:36 08/31/17 15:57 Zofran Injection IVPUSH 4 mg Q6H PRN Administration NAUSEA AND/OR VOMITING Ondansetron HCl 4 mg 08/31/17 13:37 Zofran Injection IVPUSH Q4H PRN NAUSEA AND/OR VOMITING Promethazine HCl 12.5 mg 08/31/17 13:37 Phenergan Injection - IVPB Q6H PRN NAUSEA AND/OR VOMITING Current Medications Acetaminophen (Ofirmev Injection -) 1,000 mg IVPB Q6H PRN PRN Reason: MODERATE PAIN Last Admin: 09/04/17 10:30 Dose: 1,000 mg Acetaminophen (Tylenol -) 650 mg PO Q6H PRN PRN Reason: FEVER Alvimopan (Entereg Capsule (Restricted) -) 12 mg PO BID [facility] Stop: 09/08/17 10:01 Last Admin: 09/04/17 22:50 Dose: Not Given Dexamethasone Sodium Phosphate (Decadron Injection -) 4 mg IVPUSH ONCE PRN PRN Reason: NAUSEA AND/OR VOMITING Diphenhydramine HCl (Benadryl Injection -) 12.5 mg IVPUSH ONCE PRN PRN Reason: FOR ITCHING Heparin Sodium (Porcine) (Heparin -) 5,000 unit SQ TID [facility] Last Admin: 09/04/17 23:00 Dose: 5,000 unit Dextrose/Sodium Chloride (D5-Ns -) 1,000 mls @ 75 mls/hr IV ASDIR [facility] Last Admin: 09/04/17 15:42 Dose: Not Given Ondansetron HCl (Zofran Injection) 4 mg IVPUSH Q6H PRN PRN Reason: NAUSEA AND/OR VOMITING Last Admin: 08/31/17 15:57 Dose: 4 mg Ondansetron HCl (Zofran Injection) 4 mg IVPUSH Q4H PRN PRN Reason: NAUSEA AND/OR VOMITING Promethazine HCl (Phenergan Injection -) 12.5 mg IVPB Q6H PRN PRN Reason: NAUSEA AND/OR VOMITING CEA 5.5 Surg path 08/27: 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 Distal and prox ends tatooed, extensively biopsied. CT abdomen 08/25/17: Sigmoid diverticulosis. 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 The remainder of the exam demonstrates no obvious interval change. Bilateral inguinal hernias containing fat only. Very small umbilical hernia containing fat only. Small densities are again noted adjacent to the sigmoid colon and cecum which may be on a postsurgical or postprocedural basis versus representing incidental postinflammatory/postinfectious calcifications. Correlate clinically. Colonic fecal retention which is probably moderate. Status post hysterectomy CXR: no acute pathology EKG: NSR, 64 bpm, qt/qtc 394/406, no sondra/std, Q wave in V1, V2, V3. 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 Postop Day 5 PROVIDER RELATIONS MANAGER discontinued yesterday CBC Cont SQ Heparin Further mx post sx per Hemonc based on pathol Full clear diet stop iv fluids Tabs tylenol 650mg Q6h HTN Could have been elevated due to pain Hold Tabs Norvasc 5mg Anemia: Hgb-10.8 No more rectal bleeding for now CBC Iron studies - Showing anemia of chronic disease with low TIBC Elevated Liver enzymes: Unclear etiology Abd US Leukopenia: 3.6 Stable will monitor S/P GI bleeding likely lower: Rectal bleed resolved history of kidney stones: no visible nephrolithiasis on CT PPx Cont subQ heparin Dispo For likely D/C tomorrow Visit type - Emergency Visit Emergency Visit: Yes ED Registration Date: 08/25/17 Care time: The patient presented to the Emergency Department on the above date and was hospitalized for further evaluation of their emergent condition. - New Patient This patient is new to me today: No - Critical Care Critical Care patient: No - Discharge Referral Referred to [facility] Med P.C.: No
[2017-09-05] MEDS: HEPARIN NA (PORCINE) 5,000 UNITS/ML 1ML VIAL SQ SCH ×3 (08:03→23:21)
[2017-09-05 08:12] LABS: SERUM IRON SATURATION 15 % (15-55); TOTAL IRON BINDING CAPACITY 216 ug/dL (250-450); UIBC 183 ug/dL (131-425)
[2017-09-05 08:32] LABS: ANION GAP 10 (8-16); BILIRUBIN,TOTAL 1.3 mg/dL (0.2-1.0); BLOOD UREA NITROGEN 8 mg/dL (7-18); CALCIUM 8.8 mg/dL (8.5-10.1); CHLORIDE 106 mmol/L (98-107); CO2 26 mmol/L (21-32); CREATININE 0.9 mg/dL (0.55-1.02); GLUCOSE,RANDOM 96 mg/dL (74-106); POTASSIUM 3.7 mmol/L (3.5-5.1); SGOT/AST 133 U/L (15-37); SGPT/ALT 185 U/L (12-78); SODIUM 142 mmol/L (136-145); TOT PROT 6.6 g/dl (6.4-8.2)
[2017-09-05 08:33] LABS: ALK PHOS 100 U/L (45-117)
[2017-09-05] MEDS: ALVIMOPAN 12 MG CAP PO SCH (09:33)
--- NOTE | 2017-09-05 09:49 | PN ---
Progress Note (short form) - Note Progress Note: 57yo F s/p Rt hemicolectomy POD 4, pt tolerating clears. Pt states she had a BM yesterday and passing flatus. Pt denies abd pain, n/v, fever, chills. Last Vital Signs Temp Pulse Resp BP Pulse Ox 98.9 F 67 20 130/73 97 09/05/17 06:00 09/05/17 06:00 09/05/17 06:00 09/05/17 06:00 09/04/17 09:00 CBC, BMP 09/04/17 17:30 09/05/17 07:00 PE; Gen: A&O x3, sitting comfortably Resp: breathing comfortably Abd: soft, nondistended, nontender, midline dressing in place clean with no erythema or discharge. Problem List - Problems (1) S/P right hemicolectomy Assessment/Plan: Plan: -advance diet to full liquids -DC entereg since having BM/flatus -ambulate -DVT ppx -will follow up path when available -incentive spirometry Code(s): Z90.49 - ACQUIRED ABSENCE OF OTHER SPECIFIED PARTS OF DIGESTIVE TRACT
--- NOTE | 2017-09-05 10:07 | PN ---
Progress Note, Physician History of Present Illness: Had a BM last night. Comfortable. Not in distress, or pain. - Current Medication List Current Medications: Active Medications Acetaminophen (Ofirmev Injection -) 1,000 mg IVPB Q6H PRN PRN Reason: MODERATE PAIN Last Admin: 09/04/17 10:30 Dose: 1,000 mg Acetaminophen (Tylenol -) 650 mg PO Q6H PRN PRN Reason: FEVER Dexamethasone Sodium Phosphate (Decadron Injection -) 4 mg IVPUSH ONCE PRN PRN Reason: NAUSEA AND/OR VOMITING Diphenhydramine HCl (Benadryl Injection -) 12.5 mg IVPUSH ONCE PRN PRN Reason: FOR ITCHING Heparin Sodium (Porcine) (Heparin -) 5,000 unit SQ TID [facility] Last Admin: 09/05/17 08:03 Dose: Not Given Dextrose/Sodium Chloride (D5-Ns -) 1,000 mls @ 75 mls/hr IV ASDIR [facility] Last Admin: 09/04/17 15:42 Dose: Not Given Ondansetron HCl (Zofran Injection) 4 mg IVPUSH Q6H PRN PRN Reason: NAUSEA AND/OR VOMITING Last Admin: 08/31/17 15:57 Dose: 4 mg Ondansetron HCl (Zofran Injection) 4 mg IVPUSH Q4H PRN PRN Reason: NAUSEA AND/OR VOMITING Promethazine HCl (Phenergan Injection -) 12.5 mg IVPB Q6H PRN PRN Reason: NAUSEA AND/OR VOMITING - Objective Vital Signs: Vital Signs Temperature 98.9 F 09/05/17 06:00 Pulse Rate 67 09/05/17 06:00 Respiratory Rate 20 09/05/17 06:00 Blood Pressure 130/73 09/05/17 06:00 O2 Sat by Pulse Oximetry (%) 97 09/04/17 09:00 Gastrointestinal: Yes: Soft. No: Distention, Vomiting Neurological: Yes: Alert, Oriented Labs: CBC, BMP 09/04/17 17:30 09/05/17 07:00 INR, PTT INR 1.04 (0.82-1.09) 08/31/17 08:01 Laboratory Last Values WBC 4.2 K/mm3 (4.0-10.0) 09/04/17 17:30 RBC 3.91 M/mm3 (3.60-5.2) 09/04/17 17:30 Hgb 11.1 GM/dL (10.7-15.3) 09/04/17 17:30 Hct 33.2 % (32.4-45.2) 09/04/17 17:30 MCV 85.1 fl (80-96) 09/04/17 17:30 MCH 28.5 pg (25.7-33.7) 09/04/17 17: MCHC 33.5 g/dl (32.0-36.0) 09/04/17 17:30 RDW 13.3 % (11.6-15.6) 09/04/17 17:30 Plt Count 286 K/MM3 (134-434) D 09/04/17 17:30 MPV 9.3 fl (7.5-11.1) 09/04/17 17:30 Total Counted 99 08/29/17 07:00 Neutrophils % No Result Required. 08/29/17 07:00 Neutrophils % (Manual) 40.4 % (42.8-82.8) L D 08/29/17 07:00 Band Neutrophils % 0.0 % 08/29/17 07:00 Lymphocytes % No Result Required. 08/29/17 07:00 Lymphocytes % (Manual) 31.3 % (8-40) D 08/29/17 07:00 Monocytes % 9.1 % (3.8-10.2) 08/28/17 06:30 Monocytes % (Manual) 8 % (3.8-10.2) 08/29/17 07:00 Eosinophils % 17.7 % (0-4.5) H 08/28/17 06:30 Eosinophils % (Manual) 16.2 % (0-4.5) H 08/29/17 07:00 Basophils % 0.6 % (0-2.0) 08/28/17 06:30 Basophils % (Manual) 0.0 % (0-2.0) 08/29/17 07:00 Myelocytes % (Man) 2 % (0-2) D 08/29/17 07:00 Promyelocytes % (Man) 0 % (0-2) 08/29/17 07:00 Blast Cells % (Manual) 0 % (0-0) 08/29/17 07:00 Nucleated RBC % 0 % (0-0) 08/29/17 07:00 Metamyelocytes 1 % (0-2) D 08/29/17 07:00 Hypochromia 1+ 08/26/17 07:25 Platelet Estimate Normal 08/29/17 07:00 Platelet Comment Present 08/29/17 07:00 Anisocytosis 0 08/26/17 07:25 PT with INR 11.80 SEC (9.7-13.0) 08/31/17 08:01 INR 1.04 (0.82-1.09) 08/31/17 08:01 PTT (Actin FS) 43.8 SECONDS (26.9-34.4) H D 08/31/17 08:01 Sodium 142 mmol/L (136-145) 09/05/17 07:00 Potassium 3.7 mmol/L (3.5-5.1) 09/05/17 07:00 Chloride 106 mmol/L (98-107) 09/05/17 07:00 Carbon Dioxide 26 mmol/L (21-32) 09/05/17 07:00 Anion Gap 10 (8-16) 09/05/17 07:00 BUN 8 mg/dL (7-18) 09/05/17 07:00 Creatinine 0.9 mg/dL (0.55-1.02) 09/05/17 07:00 Creat Clearance w eGFR > 60 (>60) 09/05/17 07:00 Random Glucose 96 mg/dL (74-106) 09/05/17 07:00 Calcium 8.8 mg/dL (8.5-10.1) 09/05/17 07:00 Phosphorus 3.5 mg/dL (2.5-4.9) 09/04/17 06:30 Magnesium 2.1 mg/dL (1.8-2.4) 09/04/17 06:30 Iron 33 ug/dL (27-159) 09/04/17 07:30 TIBC 216 ug/dL (250-450) L 09/04/17 07:30 Iron Saturation 15 % (15-55) 09/04/17 07:30 Ferritin Cancelled 09/04/17 07:40 Total Bilirubin 1.3 mg/dL (0.2-1.0) H 09/05/17 07:00 AST 133 U/L (15-37) H 09/05/17 07:00 ALT 185 U/L (12-78) H 09/05/17 07:00 Alkaline Phosphatase 100 U/L (45-117) 09/05/17 07:00 Total Protein 6.6 g/dl (6.4-8.2) 09/05/17 07:00 Albumin 3.0 g/dl (3.4-5.0) L 09/05/17 07:00 Carcinoembryonic Ag 5.2 ng/mL (0.0-4.7) H 08/28/17 06:30 Urine Color Ltyellow 08/25/17 08:30 Urine Appearance Slcloudy 08/25/17 08:30 Urine pH 5.0 (5.0-8.0) 08/25/17 08:30 Ur Specific Yulan 1.014 (1.001-1.035) 08/25/17 08:30 Urine Protein Negative (NEGATIVE) 08/25/17 08:30 Urine Glucose (UA) Negative (NEGATIVE) 08/25/17 08:30 Urine Ketones Negative (NEGATIVE) 08/25/17 08:30 Urine Blood 1+ (NEGATIVE) H 08/25/17 08:30 Urine Nitrite Negative (NEGATIVE) 08/25/17 08:30 Urine Bilirubin Negative (<2.0 mg/dL) 08/25/17 08:30 Urine Urobilinogen Negative mg/dL (0.2-1.0) 08/25/17 08:30 Ur Leukocyte Esterase Negative (NEGATIVE) 08/25/17 08:30 Urine WBC (Auto) 3 /hpf (3-5) 08/25/17 08:30 Urine RBC (Auto) 1 /hpf (0-3) 08/25/17 08:30 Ur Epithelial Cells Few /HPF (FEW) 08/25/17 08:30 Urine Mucus Rare 08/25/17 08:30 Stool Occult Blood Positive (NEGATIVE) 08/25/17 08:28 Blood Type O POSITIVE 08/31/17 08:01 Antibody Screen Negative 08/31/17 08:01 Crossmatch See Detail 08/30/17 09:15 Problem List - Problems (1) Colonic mass Code(s): K63.9 - DISEASE OF INTESTINE, UNSPECIFIED (2) Anemia due to blood loss Code(s): D50.0 - IRON DEFICIENCY ANEMIA SECONDARY TO BLOOD LOSS (CHRONIC) Assessment/Plan Advance diet as per surgery. Await surgical pathology. Oncology.
--- NOTE | 2017-09-05 12:21 | PN ---
Progress Note (short form) - Note Progress Note: PAtient seen and examined Denies any complaints Cor: RSR, No murmurs, No gallops Lungs: Clear to P&A Abd: Soft, Normal bowel sounds, No organomegaly Ext:No significant edema Temp Pulse Resp BP Pulse Ox 98.9 F 67 20 130/73 99 09/05/17 06:00 09/05/17 06:00 09/05/17 09:00 09/05/17 06:00 09/05/17 09:00 CBC, BMP 09/04/17 17:30 09/05/17 07:00 Current Medications Generic Name Dose Route Start Last Admin Trade Name Freq PRN Reason Stop Dose Admin Acetaminophen 1,000 mg 09/04/17 09:08 09/04/17 10:30 Ofirmev Injection - IVPB 1,000 mg Q6H PRN Administration MODERATE PAIN Acetaminophen 650 mg 09/04/17 17:22 Tylenol - PO Q6H PRN FEVER Dexamethasone Sodium Phosphate 4 mg 08/31/17 13:37 Decadron Injection - IVPUSH ONCE PRN NAUSEA AND/OR VOMITING Diphenhydramine HCl 12.5 mg 08/31/17 13:37 Benadryl Injection - IVPUSH ONCE PRN FOR ITCHING Heparin Sodium (Porcine) 5,000 unit 08/31/17 22:00 09/05/17 08:03 Heparin - SQ Not Given TID HERNAN Dextrose/Sodium Chloride 1,000 mls @ 75 mls/hr 08/31/17 14:06 09/04/17 15:42 D5-Ns - IV Not Given ASDIR [facility] Ondansetron HCl 4 mg 08/31/17 13:36 08/31/17 15:57 Zofran Injection IVPUSH 4 mg Q6H PRN Administration NAUSEA AND/OR VOMITING Ondansetron HCl 4 mg 08/31/17 13:37 Zofran Injection IVPUSH Q4H PRN NAUSEA AND/OR VOMITING Promethazine HCl 12.5 mg 08/31/17 13:37 Phenergan Injection - IVPB Q6H PRN NAUSEA AND/OR VOMITING Stage IIA Invasive adeno. --pT3N0--- no high risk features await MS status. LFTs----?etiology for OP f/u
--- NOTE | 2017-09-05 18:37 | PN ---
Teaching Attending Note Name of Resident: Jenny Munguia ATTENDING PHYSICIAN STATEMENT I saw and evaluated the patient. I reviewed the resident's note and discussed the case with the resident. I agree with the resident's findings and plan as documented with exceptions below. SUBJECTIVE: Patient seen and examined. tolerating diet well, 1 BM yesterday. some abdominal pain butimproved. OBJECTIVE: Vital Signs Period Temp Pulse Resp BP Sys/Greenwood Pulse Ox Last 24 Hr 98.9 F-99.6 F 67-102 18-20 121-156/73-96 99 Intake & Output 09/02/17 09/03/17 09/04/17 09/05/17 23:59 23:59 23:59 23:59 Intake Total 2125 2250 1725 400 Output Total 900 Balance 1225 2250 1725 400 Weight 150 lb General: sitting in no acute distress Abdomen: soft, obese, mild tenderness around the incision, no RUQ tenderness, neg Plaza's sign, no voluntary or involuntary guarding or rigidity, positive bowel sounds Home Medication List Medication Instructions Recorded Confirmed Type NK [No Known Home Medication] 08/06/15 08/25/17 History Active Medications Generic Name Dose Route Start Last Admin Trade Name Freq PRN Reason Stop Dose Admin Acetaminophen 1,000 mg 09/04/17 09:08 09/04/17 10:30 Ofirmev Injection - IVPB 1,000 mg Q6H PRN Administration MODERATE PAIN Acetaminophen 650 mg 09/04/17 17:22 Tylenol - PO Q6H PRN FEVER Dexamethasone Sodium Phosphate 4 mg 08/31/17 13:37 Decadron Injection - IVPUSH ONCE PRN NAUSEA AND/OR VOMITING Diphenhydramine HCl 12.5 mg 08/31/17 13:37 Benadryl Injection - IVPUSH ONCE PRN FOR ITCHING Heparin Sodium (Porcine) 5,000 unit 08/31/17 22:00 09/05/17 13:02 Heparin - SQ 5,000 unit TID HERNAN Administration Ondansetron HCl 4 mg 08/31/17 13:37 Zofran Injection IVPUSH Q4H PRN NAUSEA AND/OR VOMITING Promethazine HCl 12.5 mg 08/31/17 13:37 Phenergan Injection - IVPB Q6H PRN NAUSEA AND/OR VOMITING Laboratory Results - last 24 hr 09/04/17 09/05/17 07:30 07:00 Sodium 142 Potassium 3.7 Chloride 106 Carbon Dioxide 26 Anion Gap 10 BUN 8 Creatinine 0.9 Creat Clearance w eGFR > 60 Random Glucose 96 Calcium 8.8 Iron 33 TIBC 216 L Iron Saturation 15 Total Bilirubin 1.3 H AST 133 H ALT 185 H Alkaline Phosphatase 100 Total Protein 6.6 Albumin 3.0 L Microbiology 08/25/17 08:30 Urine - Urine Clean Catch Urine Culture - Final NO GROWTH OBTAINED ASSESSMENT AND PLAN: 57 yo F with no PMH with hematochezia and found to have a mass in the colon + for adenocardicoma underwent R hemicolectomy -Invasive adenocarcinome of colone s/p right hemicolectomy 08/31 -Hematochezia, due to above, resolved -Acute blood loss anemia, stable -Leucopenia, flow cytometry sent, -Abnormal LFts, ?post op, fluid shift and anesthesia/medication related. Plan: Surgery input noted, full liquid diet. Encourage ambulation and incentive spirometry. Monitor h/h. Trend CBC. LFTs improved, Abdominal US non concerning, trend LFTs. DVTPPX heparin dispo in 24 hours if tolerating diet well, BM and no concerns. Outpatient oncology follow up. Plan discussed with patient in detail, all questions answered.
[2017-09-06] MEDS: HEPARIN NA (PORCINE) 5,000 UNITS/ML 1ML VIAL SQ SCH ×2 (06:40→13:30)
--- NOTE | 2017-09-06 08:03 | PN ---
Teaching Attending Note Name of Resident: Jenny Munguia ATTENDING PHYSICIAN STATEMENT I saw and evaluated the patient. I reviewed the resident's note and discussed the case with the resident. I agree with the resident's findings and plan as documented with exceptions below. SUBJECTIVE: Patient seen and examined. OBJECTIVE: Vital Signs Period Temp Pulse Resp BP Sys/Greenwood Pulse Ox Last 24 Hr 99.1 F-99.6 F 71-102 18-20 121-156/73-96 99 Intake & Output 09/03/17 09/04/17 09/05/17 09/06/17 23:59 23:59 23:59 23:59 Intake Total 2250 1725 900 Balance 2250 1725 900 Weight 150 lb General: Abdomen: Home Medication List Medication Instructions Recorded Confirmed Type NK [No Known Home Medication] 08/06/15 08/25/17 History Active Medications Generic Name Dose Route Start Last Admin Trade Name Freq PRN Reason Stop Dose Admin Acetaminophen 1,000 mg 09/04/17 09:08 09/04/17 10:30 Ofirmev Injection - IVPB 1,000 mg Q6H PRN Administration MODERATE PAIN Acetaminophen 650 mg 09/04/17 17:22 Tylenol - PO Q6H PRN FEVER Dexamethasone Sodium Phosphate 4 mg 08/31/17 13:37 Decadron Injection - IVPUSH ONCE PRN NAUSEA AND/OR VOMITING Diphenhydramine HCl 12.5 mg 08/31/17 13:37 Benadryl Injection - IVPUSH ONCE PRN FOR ITCHING Heparin Sodium (Porcine) 5,000 unit 08/31/17 22:00 09/06/17 06:40 Heparin - SQ 5,000 unit TID HERNAN Administration Ondansetron HCl 4 mg 08/31/17 13:37 Zofran Injection IVPUSH Q4H PRN NAUSEA AND/OR VOMITING Promethazine HCl 12.5 mg 08/31/17 13:37 Phenergan Injection - IVPB Q6H PRN NAUSEA AND/OR VOMITING Microbiology 08/25/17 08:30 Urine - Urine Clean Catch Urine Culture - Final NO GROWTH OBTAINED Abdominal/RUQ US results noted. ASSESSMENT AND PLAN: 57 yo F with no PMH with hematochezia and found to have a mass in the colon + for adenocardicoma underwent R hemicolectomy -Invasive adenocarcinome of colone s/p right hemicolectomy 5/18 -Hematochezia, due to above, resolved -Acute blood loss anemia, stable -Leucopenia, flow cytometry sent, -Abnormal LFts, ?post op, fluid shift and anesthesia/medication related. Plan: Discussed with baudilio Wright for d/c advanced to solid food. LFts improved, abdominal exam benign, Outpatient follow up. Outpatient oncology follow up. pathology report noted. D/c home today. Patient independent in ADLs Plan discussed with patient in detail, all questions answered.
--- NOTE | 2017-09-06 08:27 | PN ---
Physical Exam: SUBJECTIVE: Patient seen and examined. Tolerating orally. No fevers, N/V. OBJECTIVE: Vital Signs Period Temp Pulse Resp BP Sys/Greenwood Pulse Ox Last 24 Hr 99.1 F-99.6 F 71-102 18-20 121-156/73-96 99 Vital Signs Temp 99.5 F 09/06/17 06:00 Pulse 71 09/06/17 06:00 Resp 18 09/06/17 06:00 BP 121/73 09/06/17 06:00 Pulse Ox 99 09/05/17 09:00 Intake & Output 09/05/17 09/05/17 09/06/17 11:59 23:59 11:59 Intake Total 200 700 Balance 200 700 Intake: Oral 200 700 Other: Voiding Method Toilet Toilet # Unmeasured Voids Nick 4 Void 1 2 3 Bowel Movement No # Bowel Movements 0 GENERAL: The patient is awake, alert, and fully oriented, in no acute distress. HEAD: Normal with no signs of trauma. EYES: PERRL, extraocular movements intact, sclera anicteric, conjunctiva clear. No ptosis. ENT: Ears normal, nares patent, oropharynx clear without exudates, moist mucous membranes. NECK: Trachea midline, full range of motion, supple. LUNGS: Breath sounds equal, clear to auscultation bilaterally, no wheezes, no crackles, no accessory muscle use. HEART: Regular rate and rhythm, S1, S2 without murmur, rub or gallop. ABDOMEN: Soft, nontender, nondistended, normoactive bowel sounds, no guarding, no rebound, no hepatosplenomegaly, no masses. EXTREMITIES: 2+ pulses, warm, well-perfused, no edema. NEUROLOGICAL: Cranial nerves II through XII grossly intact. Normal speech, gait not observed. PSYCH: Normal mood, normal affect. SKIN: Warm, dry, normal turgor, no rashes or lesions noted Laboratory Results - last 24 hr 09/05/17 07:00 Sodium 142 Potassium 3.7 Chloride 106 Carbon Dioxide 26 Anion Gap 10 BUN 8 Creatinine 0.9 Creat Clearance w eGFR > 60 Random Glucose 96 Calcium 8.8 Total Bilirubin 1.3 H AST 133 H ALT 185 H Alkaline Phosphatase 100 Total Protein 6.6 Albumin 3.0 L Active Medications Generic Name Dose Route Start Last Admin Trade Name Freq PRN Reason Stop Dose Admin Acetaminophen 1,000 mg 09/04/17 09:08 09/04/17 10:30 Ofirmev Injection - IVPB 1,000 mg Q6H PRN Administration MODERATE PAIN Acetaminophen 650 mg 09/04/17 17:22 Tylenol - PO Q6H PRN FEVER Dexamethasone Sodium Phosphate 4 mg 08/31/17 13:37 Decadron Injection - IVPUSH ONCE PRN NAUSEA AND/OR VOMITING Diphenhydramine HCl 12.5 mg 08/31/17 13:37 Benadryl Injection - IVPUSH ONCE PRN FOR ITCHING Heparin Sodium (Porcine) 5,000 unit 08/31/17 22:00 09/06/17 06:40 Heparin - SQ 5,000 unit TID HERNAN Administration Ondansetron HCl 4 mg 08/31/17 13:37 Zofran Injection IVPUSH Q4H PRN NAUSEA AND/OR VOMITING Promethazine HCl 12.5 mg 08/31/17 13:37 Phenergan Injection - IVPB Q6H PRN NAUSEA AND/OR VOMITING ASSESSMENT/PLAN:
--- NOTE | 2017-09-06 08:36 | PN ---
Progress Note (short form) - Note Progress Note: Surgery POD #6 s/p Rt hemicolectomy. Patient seen and examined at bedside with no new complaints. she is tolerating a full liquid diet, ambulating without assistance and had been moving her bowels and voiding. She denies any CP, SOB, N/V/D fever or chills. Vital Signs Temp 99.5 F 09/06/17 06:00 Pulse 71 09/06/17 06:00 Resp 18 09/06/17 06:00 BP 121/73 09/06/17 06:00 Pulse Ox 99 09/05/17 09:00 Intake & Output 09/05/17 09/05/17 09/06/17 11:59 23:59 11:59 Intake Total 200 700 Balance 200 700 Intake: Oral 200 700 Other: Voiding Method Toilet Toilet # Unmeasured Voids Nick 4 Void 1 2 3 Bowel Movement No # Bowel Movements 0 abdominal U/S reveals fatty infiltration of liver vs hepatocellular disease. no evidence of gallstones. PE: A&O x3, NAD unlabored resp on RA abdomen, soft, supple and mild ttp throughout appropriate to status. Midline incision danisha insitu, c/d/i with no evidence of tracking erythema, collection or d/c Problem List - Problems (1) S/P right hemicolectomy Assessment/Plan: POD #6 right hemicolectomy, patient doing well with fatty infiltration of liver on U/S. 1) advance to regular diet 2) keep incision clean and dry 3) bowel regiment 4 Daily IS 5) f/u ultrasound of liver as out patient 6) d/c planning. Code(s): Z90.49 - ACQUIRED ABSENCE OF OTHER SPECIFIED PARTS OF DIGESTIVE TRACT
[2017-09-06 08:37] LABS: BASO % 1.2 % (0-2.0); EOS % 13.7 % (0-4.5); HEMOGLOBIN 10.6 GM/dL (10.7-15.3); LYMPH % 33.8 % (8-40); MCH 28.9 pg (25.7-33.7); MEAN CELL VOLUME 84.9 fl (80-96); NEUT % 40.3 % (42.8-82.8); PLATELET COUNT 258 K/MM3 (134-434); RBC 3.65 M/mm3 (3.60-5.2); RDW 13.5 % (11.6-15.6); WHITE BLOOD COUNT 4.4 K/mm3 (4.0-10.0)
[2017-09-06 08:56] LABS: CHLORIDE 106 mmol/L (98-107); POTASSIUM 3.9 mmol/L (3.5-5.1); SODIUM 140 mmol/L (136-145)
[2017-09-06 09:35] LABS: ALBUMIN 2.9 g/dl (3.4-5.0); ALK PHOS 94 U/L (45-117); ANION GAP 7 (8-16); BILIRUBIN,TOTAL 0.9 mg/dL (0.2-1.0); BLOOD UREA NITROGEN 9 mg/dL (7-18); CALCIUM 8.5 mg/dL (8.5-10.1); CO2 27 mmol/L (21-32); CREATININE 0.9 mg/dL (0.55-1.02); GLUCOSE,RANDOM 88 mg/dL (74-106); MAGNESIUM 2.2 mg/dL (1.8-2.4); PHOSPHOROUS 4.1 mg/dL (2.5-4.9); SGOT/AST 63 U/L (15-37); SGPT/ALT 128 U/L (12-78); TOT PROT 6.3 g/dl (6.4-8.2)
--- NOTE | 2017-09-06 11:18 | PN ---
Progress Note (short form) - Note Progress Note: Attending Surgeon POD #6 Concur w/ a/p as outlined by JOHN Cuevas;surgically stable for d/c to outpatient f/u next week. Tj Salvador MD FACS
[2017-09-06 12:29] VITALS: BP 108/55; PULSE 77; TEMP 99.6
--- NOTE | 2017-09-06 13:53 | DS ---
Physical Exam: SUBJECTIVE: Patient seen and examined. Tolerating orally. No fevers, no N/V. OBJECTIVE: Vital Signs Period Temp Pulse Resp BP Sys/[place] Pulse Ox Last 24 Hr 99.1 F-99.6 F 71-102 18-20 108-156/55-96 Vital Signs Temp 99.6 F 09/06/17 08:35 Pulse 77 09/06/17 08:35 Resp 18 09/06/17 08:35 BP 108/55 09/06/17 08:35 Pulse Ox 99 09/05/17 09:00 Intake & Output 09/05/17 09/06/17 09/06/17 23:59 11:59 23:59 Intake Total 700 Balance 700 Intake: Oral 700 Other: Voiding Method Toilet Toilet # Unmeasured Voids Nick 4 Void 2 3 Bowel Movement No # Bowel Movements 0 Intake & Output 09/03/17 09/04/17 09/05/17 09/06/17 23:59 23:59 23:59 23:59 Intake Total 2250 1725 900 Balance 2250 1725 900 Weight 68.039 kg PHYSICAL EXAM GENERAL: The patient is awake, alert, and fully oriented, in no acute distress. ENT: moist mucous membranes. LUNGS: Breath sounds equal, clear to auscultation bilaterally HEART: Regular rate and rhythm, S1, S2 ABDOMEN: Midline surgical dressing in place, clean and dry. Surgical danisha in place suprapubic to xiphisterum. Soft, nontender, nondistended, normoactive bowel sounds EXTREMITIES: 2+ pulses, warm, well-perfused, no edema. NEUROLOGICAL: Cranial nerves II through XII grossly intact. Normal speech, normal gait LABS Laboratory Results - last 24 hr 09/06/17 09/06/17 06:20 06:20 WBC 4.4 RBC 3.65 Hgb 10.6 L Hct 31.0 L MCV 84.9 MCH 28.9 MCHC 34.0 RDW 13.5 Plt Count 258 MPV 9.0 Neutrophils % 40.3 L D Lymphocytes % 33.8 Monocytes % 11.0 H Eosinophils % 13.7 H Basophils % 1.2 Nucleated RBC % 0 Sodium 140 Potassium 3.9 Chloride 106 Carbon Dioxide 27 Anion Gap 7 L BUN 9 Creatinine 0.9 Creat Clearance w eGFR > 60 Random Glucose 88 Calcium 8.5 Phosphorus 4.1 Magnesium 2.2 Total Bilirubin 0.9 D AST 63 H ALT 128 H Alkaline Phosphatase 94 Total Protein 6.3 L Albumin 2.9 L CEA 5.5 Surg path 08/27: 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 Distal and prox ends tatooed, extensively biopsied. CT abdomen 08/25/17: Sigmoid diverticulosis. 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 The remainder of the exam demonstrates no obvious interval change. Bilateral inguinal hernias containing fat only. Very small umbilical hernia containing fat only. Small densities are again noted adjacent to the sigmoid colon and cecum which may be on a postsurgical or postprocedural basis versus representing incidental postinflammatory/postinfectious calcifications. Correlate clinically. Colonic fecal retention which is probably moderate. Status post hysterectomy CXR: no acute pathology EKG: NSR, 64 bpm, qt/qtc 394/406, no sondra/std, Q wave in V1, V2, V3. CT chest 08/28/17: No metastases Stage IIA Invasive adeno. 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 Patient resumed bowel function and tolerated full diet prior to discharge with no repeat bloody stools. She had a transient elevation of her blood pressure postoperatively that resolved with pain management with no need for antihypertensives. She was found to be anemic and work up revealed anemia of chronic disease. Her liver enzymes were elevated postoperatively and an US of the abdomen did not show any acute pathology. She will follow up as an outpatient for repeat LFTs and US- 09/05 AST-63, ALT-128 and CBC-10.6. She will follow up with hemonc, surgery, GI and her PCP for further mx in a week's time. Minutes to complete discharge: 38 Discharge Summary Reason For Visit: DIVERTICULOSIS INTESTINE Current Active Problems Anemia due to blood loss (Acute) Colonic mass (Acute) Diverticulosis (Acute) Leukopenia (Acute) S/P right hemicolectomy (Acute) Condition: Stable - Instructions Diet, Activity, Other Instructions: Dr. Salvador Discharge Instructions Dear GOMEZ PLASCENCIA, Post Operative Instructions Physical activity Resume your normal everyday activity as tolerated no heavy lifting or exercise until seen by your surgeon. You may walk unlimited amounts of and climb stairs. You may resume driving the car when you feel safe and comfortable behind the wheel. Do not operate a vehicle while taking narcotic medication. Wound care Keep incision clean and dry. Do not shower until the danisha are removed by your surgeon @10-14 days post op. Do not apply ointments or lotions to the incision. Diet There are no dietary restrictions. Eat healthy, high-fiber foods. Drink 6 to 8 glasses of liquid each day. This will assist in keeping your bowels are regular. Pain management You may take Tylenol or acetaminophen or Ibuprofen (for example, Motrin, Advil etc.) Any pain prescription medication ordered should be taken as prescribed for moderate to severe pain. Call Dr. Salvador for any of the following: Severe pain not relieved by medication Fever of 101 or higher Excessive bleeding or drainage on dressing Inability to urinate or move bowels New associated symptoms If you experience chest pain or shortness of breath seek emergency treatment immediately. Call the office at [phone] for a post operative appointment scheduled for next week Follow up with your primary care doctor. Or With doctor jenny Munguia Follow up with Oncologist Dr. Harrell. or Dr Correa in one week to discuss further cancer treatment. Drink plenty of liquid. Ask your primary care doctor to repeat for following blood tests in 1 week: LFTs and CBC. 9 your ast is 63 and alt 128) . Do not take any over the counter laxative without discussing it with your surgeon Dr Salvador. If your notice worsening pain, fevers, chills, jaundice, inability to eat or any new concerns, call 911 or come to ED right away. Referrals: Jenny Munguia RES [Resident] - 1 Week Tj Salvador MD [Staff Physician] - 1 Week Harrison Terry MD [Staff Physician] - Radha Correa MD [Staff Physician] - 1 Week Disposition: HOME - Home Medications Comprehensive Discharge Medication List: Ambulatory Orders NK [No Known Home Medication] 08/06/15 This patient is new to me today: No Emergency Visit: Yes ED Registration Date: 08/25/17 Care time: The patient presented to the Emergency Department on the above date and was hospitalized for further evaluation of their emergent condition. Critical Care patient: No - Discharge Referral Referred to [facility] No
== END 2017-09-06 14:10 | disposition home or self-care (01) | DRG 221 ==
LOC: JER 06:41 → JERBED 12:47 → J5S 17:53 → J8W 08-31 17:00
PROVIDERS: ADMIT Hospitalist; ATTEND Hospitalist
PROC: 0DDL8ZX Extraction of Transverse Colon, Via Natural or Artificial Opening Endoscopic, Diagnostic (ICD-10-PCS; 2017-08-27)
PROC: 0D5P8ZZ Destruction of Rectum, Via Natural or Artificial Opening Endoscopic (ICD-10-PCS; 2017-08-27)
PROC: 0DTF0ZZ Resection of Right Large Intestine, Open Approach (ICD-10-PCS; principal; 2017-08-31 11:30)
DX: C18.4 Malignant neoplasm of transverse colon (principal); K76.0 Fatty (change of) liver, not elsewhere classified; K62.1 Rectal polyp; K57.30 Diverticulosis of large intestine without perforation or abscess without bleeding; D62 Acute posthemorrhagic anemia; K92.2 Gastrointestinal hemorrhage, unspecified; D72.819 Decreased white blood cell count, unspecified; K42.9 Umbilical hernia without obstruction or gangrene; D17.71 Benign lipomatous neoplasm of kidney; Z90.710 Acquired absence of both cervix and uterus; R51 Headache; K59.00 Constipation, unspecified
CPT/HCPCS: 36415; 71045-TC-FY; 71260-TC; 74177-TC; 76700-TC; 80048; 80053; 81003; 81015; 82272; 82378; 82728; 83540; 83550; 83735; 84100; 85025; 85027; 85610; 85730; 86850; 86900; 86901; 86922; 87086; 88305-TC; 88307-TC; 88309-TC; 93005; 93010; 94010; 94760; 99285-25; J0131; J1644

== ENCOUNTER 2017-09-15 10:28 | Emergency (ER) | payer OTHER ==
[2017-09-15 10:41] VITALS: TEMP 98.9; BMI 24.2
--- NOTE | 2017-09-15 10:57 | PDOC ---
History of Present Illness - General History Source: Patient Exam Limitations: No Limitations - History of Present Illness Initial Comments: 09/15/17 11:15 The patient is a 57 year old female with a significant PMH of s/p right hemicolectomy who presents to the emergency department with pain and mild drainage today from the site of the hemicolectomy. The hemicolectomy was performed by Dr. Salvador on 08/31. The danisha were removed yesterday. The patient reports erythema and a clear yellow fluid draining from the surgical incision site today. The patient was told to return to the ER if she noticed any changes at the surgical site. The patient denies chest pain, shortness of breath, headache and dizziness. Denies fever, chills, nausea, vomit, diarrhea and constipation. Denies dysuria, frequency, urgency and hematuria. Allergies: NKA Past surgical history: None reported. Social history: No reported alcohol, drug, or cigarette use. Surgeon: Dr. Salvador <Elvia Martínez - Last Filed: 09/15/17 11:20> <Bethany Crespo - Last Filed: 09/15/17 12:36> - General Chief Complaint: Revisit,Wound Recheck Stated Complaint: POST-SURG/ WOUND OPENING Time Seen by Provider: 09/15/17 10:57 Past History <Elvia Martínez - Last Filed: 09/15/17 11:20> - Past Medical History Anemia: No Cancer: Yes (colon) COPD: No - Surgical History Abdominal Surgery: Yes (Cancer removal colon 08/31/17) - Immunization History Immunization Up to Date: Yes - Suicide/Smoking/Psychosocial Hx Smoking History: Never smoked Have you smoked in the past 12 months: No Hx Alcohol Use: No Drug/Substance Use Hx: No Substance Use Type: None Hx Substance Use Treatment: No <Bethany Crespo - Last Filed: 09/15/17 12:36> - Past Medical History Allergies/Adverse Reactions: Allergies Allergy/AdvReac Type Severity Reaction Status Date / Time No Known Allergies Allergy Verified 09/15/17 10:42 Home Medications: Ambulatory Orders Cephalexin Monohydrate [Keflex -] 500 mg PO Q6H #28 capsule 09/15/17 Review of Systems - Review of Systems Able to Perform ROS?: Yes Comments:: 09/15/17 11:20 GENERAL/CONSTITUTIONAL: No fever or chills. No weakness. HEAD, EYES, EARS, NOSE AND THROAT: No change in vision. No ear pain or discharge. No sore throat. CARDIOVASCULAR: No chest pain or shortness of breath. RESPIRATORY: No cough, wheezing, or hemoptysis. GASTROINTESTINAL: (+) Mild drainage and erythema at the surgical site. No nausea , vomiting, diarrhea or constipation. GENITOURINARY: No dysuria, frequency, or change in urination. MUSCULOSKELETAL: No joint or muscle swelling or pain. No neck or back pain. SKIN: No rash NEUROLOGIC: No headache, vertigo, loss of consciousness, or change in strength/ sensation. ENDOCRINE: No increased thirst. No abnormal weight change. HEMATOLOGIC/LYMPHATIC: No anemia, easy bleeding, or history of blood clots. ALLERGIC/IMMUNOLOGIC: No hives or skin allergy. <Elvia Martínez - Last Filed: 09/15/17 11:20> *Physical Exam - Vital Signs Last Vital Signs Temp Pulse Resp BP Pulse Ox 98.9 F 59 L 18 119/72 98 09/15/17 10:39 09/15/17 10:39 09/15/17 10:39 09/15/17 10:39 09/15/17 10:39 <Elvia Martínez - Last Filed: 09/15/17 11:20> - Vital Signs Last Vital Signs Temp Pulse Resp BP Pulse Ox 98.9 F 59 L 18 119/72 98 09/15/17 10:39 09/15/17 10:39 09/15/17 10:39 09/15/17 10:39 09/15/17 10:39 - Physical Exam Comments: GENERAL: Awake, alert, and fully oriented, in no acute distress HEAD: No signs of trauma EYES: PERRLA, EOMI, sclera anicteric, conjunctiva clear ENT: Auricles normal inspection, hearing grossly normal, nares patent, oropharynx clear without exudates. Moist mucosa NECK: Normal ROM, supple, no lymphadenopathy, JVD, or masses LUNGS: Breath sounds equal, clear to auscultation bilaterally. No wheezes, and no crackles HEART: Regular rate and rhythm, normal S1 and S2, no murmurs, rubs or gallops ABDOMEN: Soft, nontender, normoactive bowel sounds. No guarding, no rebound. No masses. +Midline incision with drainage of clear yellow fluid just inferior to the umbilicus. +Erythema to the inferior portion of the incision. EXTREMITIES: Normal range of motion, no edema. No clubbing or cyanosis. No cords, erythema, or tenderness NEUROLOGICAL: Cranial nerves II through XII grossly intact. Normal speech, normal gait SKIN: Warm, Dry, normal turgor, no rashes. <Bethany Crespo - Last Filed: 09/15/17 12:36> ED Treatment Course - LABORATORY CBC & Chemistry Diagram: 09/15/17 11:44 09/15/17 11:44 <Bethany Crespo - Last Filed: 09/15/17 12:36> Medical Decision Making - Medical Decision Making 09/15/17 12:09 Case d/w Dr. Salvador, will evaluate patient. 09/15/17 12:[address] Salvador. Recommended PO keflex, will follow up with her in office in 2-3 days. <Bethany Crespo - Last Filed: 09/15/17 12:36> *DC/Admit/Observation/Transfer - Attestations Scribe Attestion: 09/15/17 11:21 Documentation prepared by Elvia Martínez, acting as emergency medical service manager for Bethany Crespo MD. <Elvia Martínez - Last Filed: 09/15/17 11:20> - Discharge Dispostion Decision to Admit order: No <Bethany Crespo - Last Filed: 09/15/17 12:36> Diagnosis at time of Disposition: Cellulitis Qualifiers: Site of cellulitis: trunk Site of cellulitis of trunk: abdominal wall Qualified Code(s): L03.311 - Cellulitis of abdominal wall - Discharge Dispostion Disposition: HOME Condition at time of disposition: Stable - Prescriptions Prescriptions: Cephalexin Monohydrate [Keflex -] 500 mg PO Q6H #28 capsule - Referrals Referrals: Ayanna Varela MD [Primary Care Provider] - - Patient Instructions Printed Discharge Instructions: DI for Cellulitis -- Adult
[2017-09-15 12:32] LABS: BASO % 1.1 % (0-2.0); EOS % 3.8 % (0-4.5); HEMATOCRIT 32.5 % (32.4-45.2); HEMOGLOBIN 10.9 GM/dL (10.7-15.3); LYMPH % 23.9 % (8-40); MCH 28.5 pg (25.7-33.7); MCHC 33.7 g/dl (32.0-36.0); MEAN CELL VOLUME 84.8 fl (80-96); MEAN PLT VOLUME 8.4 fl (7.5-11.1); MONO % 9.9 % (3.8-10.2); NEUT % 61.3 % (42.8-82.8); PLATELET COUNT 370 K/MM3 (134-434); RBC 3.83 M/mm3 (3.60-5.2); RDW 13.5 % (11.6-15.6); WHITE BLOOD COUNT 4.2 K/mm3 (4.0-10.0)
[2017-09-15] MEDS ORDERED: CEPHALEXIN MONOHYDRATE 500 MG CAPSULE (UD) PO ONE (12:34)
[2017-09-15 12:57] LABS: ALBUMIN 3.1 g/dl (3.4-5.0); ALK PHOS 85 U/L (45-117); ANION GAP 7 (8-16); BILIRUBIN,TOTAL 0.3 mg/dL (0.2-1.0); BLOOD UREA NITROGEN 13 mg/dL (7-18); CALCIUM 8.6 mg/dL (8.5-10.1); CHLORIDE 102 mmol/L (98-107); CO2 29 mmol/L (21-32); GLUCOSE,RANDOM 84 mg/dL (74-106); POTASSIUM 4.7 mmol/L (3.5-5.1); SGOT/AST 12 U/L (15-37); SGPT/ALT 27 U/L (12-78); SODIUM 138 mmol/L (136-145); TOT PROT 6.7 g/dl (6.4-8.2)
[2017-09-15] MEDS ORDERED: CEPHALEXIN MONOHYDRATE 500 MG CAPSULE (UD) ONE (13:06)
[2017-09-15 13:14] VITALS: BP 120/65; PULSE 61
== END 2017-09-15 13:15 | disposition home or self-care (01) ==
LOC: JER 10:28
DX: L03.311 Cellulitis of abdominal wall (principal); T81.4XXA Infection following a procedure, initial encounter; Z90.49 Acquired absence of other specified parts of digestive tract
CPT/HCPCS: 36415; 80053; 85025; 87040; 99281-25

== ENCOUNTER 2018-01-20 17:40 | Emergency (ER) | payer OTHER ==
[2018-01-20 18:09] LABS: URINE APPEARANCE Clear; URINE BILIRUBIN Negative (NEGATIVE); URINE COLOR Yellow; URINE GLUCOSE (UA) Negative (NEGATIVE); URINE KETONE Negative (NEGATIVE); URINE LEUK ESTERASE TRACE (NEGATIVE); URINE NITRITE Negative (NEGATIVE); URINE PROTEIN Negative (NEGATIVE); URINE UROBILINOGEN 0.2 (0.2-1.0)
--- NOTE | 2018-01-20 18:18 | PDOC ---
History of Present Illness - History of Present Illness Initial Comments: 01/20/18 18:17 57 yo F w/ PMH of Stage IIA 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 Pt works in [employer] for a [employer] and while at work felt lightheaded and fell on L side of her head. Pt denies LOC as well as any prodromal sxs or seizure like activites. pt says this is the first time this has happened to her. Pt endorses good PO in recent days. Pt also experiencing today diffuse burning abdominal pain not associated w/ food. Of note, pt endorses dysuria x1mo, has not seen anyone for it and has not taken anything for it. Also pt had one episode of blood in stools 2 wks ago after straining too hard, has not seen blood since or prior to the episode Denies fever, chills, blurry vision, cp, sob, palpatations, n/v/d, hematuria, numbness, tingling, recent travel, sick contacts Meds: none All:NKDA PSH: hysterectomy. x3 SH: denies smoke etoh drugs FH: dad had lung and stomach cancer (was a smoker). Mom DM <Luís Wilson - Last Filed: 01/20/18 18:55> <Bethany Crespo - Last Filed: 01/20/18 18:59> - General Chief Complaint: Lightheaded Stated Complaint: DIZZY SPELL, UPSET STOMACH Time Seen by Provider: 01/20/18 18:04 Past History - Past Medical History Anemia: No Cancer: Yes (colon) COPD: No - Surgical History Abdominal Surgery: Yes (Cancer removal colon 08/31/17) - Immunization History Immunization Up to Date: Yes - Suicide/Smoking/Psychosocial Hx Smoking History: Never smoked Have you smoked in the past 12 months: No Information on smoking cessation initiated: No Hx Alcohol Use: No Drug/Substance Use Hx: No Substance Use Type: None Hx Substance Use Treatment: No <Luís Wilson - Last Filed: 01/20/18 18:55> <Bethany Crespo - Last Filed: 01/20/18 18:59> - Past Medical History Allergies/Adverse Reactions: Allergies Allergy/AdvReac Type Severity Reaction Status Date / Time No Known Allergies Allergy Verified 01/20/18 17:50 Review of Systems - Review of Systems Constitutional: Yes: See HPI HEENTM: Yes: See HPI Respiratory: Yes: See HPI Cardiac (ROS): Yes: See HPI ABD/GI: Yes: See HPI : Yes: See HPI Musculoskeletal: Yes: See HPI Integumentary: Yes: See HPI Neurological: Yes: See HPI Endocrine: Yes: See HPI Hematologic/Lymphatic: Yes: See HPI <Luís Wilson - Last Filed: 01/20/18 18:55> *Physical Exam - Vital Signs Last Vital Signs Temp Pulse Resp BP Pulse Ox 98.4 F 79 16 130/87 99 01/20/18 17:49 01/20/18 17:49 01/20/18 17:49 01/20/18 17:49 01/20/18 17:49 - Physical Exam Comments: 01/20/18 18:35 General: Well-nourished well-developed individual, NAD HEENT: NCAT, mild TTP L pentecostalism, no swelling or erythema. PERRLA, EOMI, MMM, no erythema or exudate Neck: Supple, no lymphadenopathy Respiratory: CTAB cardio: RRR S1 S2 no m/r/g Abdomen:+BS Soft, NTND Extremities: radial and DP pulses 2+ b/l. Warm, dry, no cyanosis, clubbing, or edema. Skin: No rashes Neuro: Alert and oriented x3, nonfocal exam, sensation and strength grossly intact. CN I - XII grossly intact, FTN nl Psych: Normal mood and affect <Luís Wilson - Last Filed: 01/20/18 18:55> - Vital Signs Last Vital Signs Temp Pulse Resp BP Pulse Ox 98.4 F 79 16 130/87 99 01/20/18 17:49 01/20/18 17:49 01/20/18 17:49 01/20/18 17:49 01/20/18 17:49 <Bethany Crespo - Last Filed: 01/20/18 18:59> ED Treatment Course - ADDITIONAL ORDERS Additional order review: Laboratory Results 01/20/18 18:00 Urine Color Yellow Urine Appearance Clear Urine pH 5.0 Ur Specific [place] 1.020 Urine Protein Negative Urine Glucose (UA) Negative Urine Ketones Negative Urine Blood 1+ H Urine Nitrite Negative Urine Bilirubin Negative Urine Urobilinogen 0.2 Ur Leukocyte Esterase Trace H <KatieLuís wing - Last Filed: 01/20/18 18:55> - ADDITIONAL ORDERS Additional order review: Laboratory Results 01/20/18 18:00 Urine Color Yellow Urine Appearance Clear Urine pH 5.0 Ur Specific [place] 1.020 Urine Protein Negative Urine Glucose (UA) Negative Urine Ketones Negative Urine Blood 1+ H Urine Nitrite Negative Urine Bilirubin Negative Urine Urobilinogen 0.2 Ur Leukocyte Esterase Trace H Urine RBC 2-5 Urine WBC 5-10 Ur Epithelial Cells 2+ <Bethany Crespo - Last Filed: 01/20/18 18:59> Medical Decision Making - Medical Decision Making 01/20/18 18:32 57 yo F w/ PMH of Stage IIA 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 dysuria x1mo. Vitals wnl. Exam is unremarkable Ddx: presyncope can be vasovagal, dehydration, UTI, AL -CBC, CMP, Lipase, UA, EKG, trop -IVF bolus -CT head r/o bleed <Luís Wilson - Last Filed: 01/20/18 18:55> - Medical Decision Making 01/20/18 18:[address] Tineo at shift change. Awaiting results of labs and CTH. If all wnl, likely DC home. <Bethany Crespo - Last Filed: 01/20/18 18:59> *DC/Admit/Observation/Transfer <Luís Wilson - Last Filed: 01/20/18 18:55> <Bethany Crespo - Last Filed: 01/20/18 18:59> Diagnosis at time of Disposition: Pre-syncope - Discharge Dispostion Condition at time of disposition: Good
[2018-01-20 18:19] VITALS: BP 130/87; PULSE 79; TEMP 98.4; BMI 23.6
--- NOTE | 2018-01-20 18:21 | PDOC ---
Attending Attestation - Resident Resident Name: Luís Wilson - ED Attending Attestation I have performed the following: I have examined & evaluated the patient, The case was reviewed & discussed with the resident, I agree w/resident's findings & plan, Exceptions are as noted - Physicial Exam PE: GENERAL: Awake, alert, and fully oriented, in no acute distress HEAD: No signs of trauma EYES: PERRLA, EOMI, sclera anicteric, conjunctiva clear ENT: Auricles normal inspection, hearing grossly normal, nares patent, oropharynx clear without exudates. Dry mucosa NECK: Normal ROM, supple, no lymphadenopathy, JVD, or masses LUNGS: Breath sounds equal, clear to auscultation bilaterally. No wheezes, and no crackles HEART: Regular rate and rhythm, normal S1 and S2, no murmurs, rubs or gallops ABDOMEN: Soft, nontender, normoactive bowel sounds. No guarding, no rebound. No masses. +Well-healed midline incision. EXTREMITIES: Normal range of motion, no edema. No clubbing or cyanosis. No cords, erythema, or tenderness NEUROLOGICAL: Cranial nerves II through XII grossly intact. Normal speech, normal gait. Motor and sensation intact. SKIN: Warm, Dry, normal turgor, no rashes or lesions noted. - Medical Decision Making 01/20/18 18:33 Pt is s/p near syncopal episode, felt lightheaded, hit head. No LOC, no cp, no SOB. She states she does not have any active cancer since the lesion was removed , making PE less likely (also clinical presentation does not fit the diagnosis) . Main complaint at present is burning sensation to abdomen. Nontender to palpation. Will obtain labs including CBC, CMP, lipase, cardiac profile. Will also obtain EKG, UA, CTH. <Bethany Crespo - Last Filed: 01/20/18 18:32> - HPI HPI: 01/20/18 19:50 The patient is a 57-year-old female with past medical history significant for stage 2 colon CA s/p R hemicolectomy (by Dr. Salvador on 08/31) presents to the emergency department s/p pre-syncopal episode. The patient states she was at work when a bout of dizziness presented followed by a fall. The patient reports she hit the left side of her face on the table when she fell. Denies weakness or shortness of breath prior to the fall. Denies LOC. 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 The patient reports associated concern of dysuria for a month and single episode of hematochezia. Denies melena, hematuria , frequency or urgency to urinate, fever, chills, chest pain, shortness of breath, nausea, vomiting or diarrhea. Allergies: NKA PCP: Dr farida Duffy - Medical Decision Making 01/20/18 19:50 Documentation prepared by Rebecca Iglesias, acting as associate medical director for Bethany Crespo MD. <Rebecca Iglesias - Last Filed: 01/20/18 19:50>
[2018-01-20] MEDS ORDERED: SODIUM CHLORIDE 1,000 ML IV STA (18:28)
[2018-01-20 18:47] LABS: EPI CELLS 2+ /HPF
[2018-01-20 19:11] LABS: BASO % 1.8 % (0-2.0); EOS % 13.7 % (0-4.5); HEMATOCRIT 37.3 % (32.4-45.2); HEMOGLOBIN 12.4 GM/dl (10.7-15.3); LYMPH % 38.4 % (8-40); MCH 27.8 pg (25.7-33.7); MCHC 33.1 g/dl (32.0-36.0); MEAN CELL VOLUME 83.8 fl (80-96); MEAN PLT VOLUME 8.6 fl (7.5-11.1); MONO % 8.5 % (3.8-10.2); NEUT % 37.6 % (42.8-82.8); PLATELET COUNT 212 K/MM3 (134-434); RBC 4.46 M/mm3 (3.60-5.2); RDW 15.8 % (11.6-15.6); WHITE BLOOD COUNT 3.5 K/mm3 (4.0-10.8)
[2018-01-20 19:24] LABS: ALBUMIN 3.7 g/dl (3.5-5.0); ALK PHOS 70 U/L (32-92); ANION GAP 3 MMOL/L (8-16); BILIRUBIN,TOTAL 0.8 mg/dl (0.2-1.0); BLOOD UREA NITROGEN 18 mg/dl (7-18); CALCIUM 8.9 mg/dl (8.4-10.2); CHLORIDE 109 mmol/L (98-107); CO2 24 mmol/L (22-28); CREATININE 0.9 mg/dl (0.6-1.3); GLUCOSE,RANDOM 86 mg/dl (74-106); POTASSIUM 4.1 mmol/L (3.5-5.1); SGOT/AST 24 U/L (10-42); SGPT/ALT 17 U/L (10-40); SODIUM 136 mmol/L (136-145); TOT PROT 6.6 g/dl (6.4-8.3)
--- NOTE | 2018-01-20 20:46 | PDOC ---
*Physical Exam - Vital Signs Last Vital Signs Temp Pulse Resp BP Pulse Ox 98.4 F 79 16 130/87 99 01/20/18 17:49 01/20/18 17:49 01/20/18 17:49 01/20/18 17:49 01/20/18 17:49 - Physical Exam General Appearance: Yes: Nourished HEENT: positive: TMs Normal Respiratory/Chest: positive: Lungs Clear, Normal Breath Sounds Cardiovascular: positive: Regular Rhythm, Regular Rate, S1, S2 ED Treatment Course - LABORATORY CBC & Chemistry Diagram: 01/20/18 18:58 01/20/18 18:58 - ADDITIONAL ORDERS Additional order review: Laboratory Results 01/20/18 01/20/18 01/20/18 18:58 18:55 18:55 Sodium 136 Potassium 4.1 Chloride 109 H Carbon Dioxide 24 Anion Gap 3 L BUN 18 Creatinine 0.9 Creat Clearance w eGFR > 60 Random Glucose 86 Calcium 8.9 Total Bilirubin 0.8 AST 24 ALT 17 Alkaline Phosphatase 70 Troponin I < 0.03 Total Protein 6.6 Albumin 3.7 Lipase 181 Urine Color Urine Appearance Urine pH Ur Specific [place] Urine Protein Urine Glucose (UA) Urine Ketones Urine Blood Urine Nitrite Urine Bilirubin Urine Urobilinogen Ur Leukocyte Esterase Urine RBC Urine WBC Ur Epithelial Cells 01/20/18 18:00 Sodium Potassium Chloride Carbon Dioxide Anion Gap BUN Creatinine Creat Clearance w eGFR Random Glucose Calcium Total Bilirubin AST ALT Alkaline Phosphatase Troponin I Total Protein Albumin Lipase Urine Color Yellow Urine Appearance Clear Urine pH 5.0 Ur Specific [place] 1.020 Urine Protein Negative Urine Glucose (UA) Negative Urine Ketones Negative Urine Blood 1+ H Urine Nitrite Negative Urine Bilirubin Negative Urine Urobilinogen 0.2 Ur Leukocyte Esterase Trace H Urine RBC 2-5 Urine WBC 5-10 Ur Epithelial Cells 2+ 01/20/18 18:58 RBC 4.46 MCV 83.8 MCHC 33.1 RDW 15.8 H D MPV 8.6 Neutrophils % 37.6 L Lymphocytes % 38.4 Monocytes % 8.5 Eosinophils % 13.7 H Basophils % 1.8 - Medications Given in the ED: ED Medications Discontinued Medications Generic Name Dose Route Start Last Admin Trade Name Freq PRN Reason Stop Dose Admin Sodium Chloride 1,000 mls @ 1,000 mls/hr 01/20/18 18:28 01/20/18 18:55 Normal Saline - IV 01/20/18 19:27 1,000 mls/hr ASDIR STA Administration Medical Decision Making - Medical Decision Making 01/20/18 20:45 pt feel well. labs reviewed normal ct head negative. will dc home. pt states she did not eat or drink much today. told to drink plenty of fluids. has followup with pcp in 3 days. *DC/Admit/Observation/Transfer Diagnosis at time of Disposition: Pre-syncope - Discharge Dispostion Disposition: HOME Condition at time of disposition: Good - Referrals - Patient Instructions Printed Discharge Instructions: DI for Syncope in Adults (Fainting) Additional Instructions: be sure to drink plenty of liquids. eat 3 meals / day. return for feeling lightheaded. follow up with your primary doctor next sunday as scheduled in 2 days. return for any chest pain, palpiations, feeling dizzy or any concerns. - Post Discharge Activity
--- NOTE | 2018-01-21 11:09 | EKG ---
Test Reason : Blood Pressure : / mmHG Vent. Rate : 063 BPM Atrial Rate : 063 BPM P-R Int : 180 ms QRS Dur : 084 ms QT Int : 398 ms P-R-T Axes : 067 -22 060 degrees QTc Int : 407 ms NORMAL SINUS RHYTHM NORMAL ECG WHEN COMPARED WITH ECG OF 25-AUG-2017 07:55, NO SIGNIFICANT CHANGE WAS FOUND Confirmed by RICK WEBB MD ([id number]) on 01/21/2018 11:09:41 AM Referred By: DR UNGER Confirmed By:RICK WEBB MD
== END 2018-01-20 20:52 | disposition home or self-care (01) ==
LOC: FER 17:40
PROC: 3E0337Z Introduction of Electrolytic and Water Balance Substance into Peripheral Vein, Percutaneous Approach (ICD-10-PCS; principal; 2018-01-20)
DX: R55 Syncope and collapse (principal)
CPT/HCPCS: 36415; 70450-TC; 80053; 81003; 81015; 83690; 84484; 85025; 93005; 99284-25; J7030

== ENCOUNTER 2018-09-16 09:40 | Day surgery (SDC) | payer OTHER | END 2018-09-16 17:45 | disposition home or self-care (01) | LOC: JASU-SURG 09:40 ==

== ENCOUNTER 2021-07-22 07:33 | Day surgery (SDC) | payer OTHER ==
[2021-07-19 18:48] VITALS: BMI 29.0
[2021-07-22] MEDS ORDERED: oxyCODONE HCL 5 MG TABLET PO PRN ×2 (08:30)
[2021-07-22] MEDS ORDERED: LACTATED RINGERS SOLUTION 1,000 ML IV SCH (08:30)
[2021-07-22] MEDS ORDERED: ONDANSETRON 4 MG/2 ML VIAL IVPUSH PRN (08:30)
[2021-07-22] MEDS ORDERED: LIDOCAINE HCL/PF 2% SDV 5ML VIAL ONE ×2 (08:51→10:24)
[2021-07-22] MEDS ORDERED: PROPOFOL 20 ML ONE ×2 (08:51)
[2021-07-22] MEDS ORDERED: MIDAZOLAM HCL 2 MG/2 ML SINGLE DOSE VIAL ONE (08:51)
[2021-07-22] MEDS ORDERED: DEXAMETHASONE SOD PHOSPHATE 4 MG/1 ML VIAL ONE (08:51)
[2021-07-22] MEDS ORDERED: ceFAZolin SODIUM 1 GM VIAL ONE ×2 (08:51)
[2021-07-22] MEDS ORDERED: KETOROLAC TROMETHAMINE 30 MG/1 ML VIAL ONE (08:51)
[2021-07-22] MEDS ORDERED: ONDANSETRON 4 MG/2 ML VIAL ONE (08:51)
[2021-07-22] MEDS ORDERED: ONDANSETRON *ODT* 4 MG TABLET ONE (11:55)
[2021-07-22 12:18] VITALS: BP 126/75; PULSE 73; TEMP 97.9
== END 2021-07-22 12:20 | disposition home or self-care (01) ==
LOC: FASU 07:33
PROVIDERS: ATTEND Orthopaedic Surgery Sports Medicine
PROC: 0SBD4ZZ Excision of Left Knee Joint, Percutaneous Endoscopic Approach (ICD-10-PCS; principal; 2021-07-22 10:00)
DX: S83.242A Other tear of medial meniscus, current injury, left knee, initial encounter (principal); M94.262 Chondromalacia, left knee; M65.862 Other synovitis and tenosynovitis, left lower leg; X58.XXXA Exposure to other specified factors, initial encounter; Y93.9 Activity, unspecified; Y92.9 Unspecified place or not applicable
CPT/HCPCS: 94760; Q0162

== ENCOUNTER 2021-09-08 20:35 | Emergency (ER) | payer OTHER ==
[2021-09-08 21:13] VITALS: BP 152/104; PULSE 74; TEMP 97.9; BMI 27.8
[2021-09-08 21:33] LABS: HEMOGLOBIN 13.8 G/dL (10.7-15.3); MCH 29.9 pg (25.7-33.7); MCHC 35.4 g/dl (32.0-36.0); MEAN CELL VOLUME 84.4 fl (80-96); MEAN PLT VOLUME 8.2 fl (7.5-11.1); PLATELET COUNT 258.1 10^3/uL (134-434); RBC 4.62 10^6/uL (3.60-5.2); RDW 14.5 % (11.6-15.6); WHITE BLOOD COUNT 4.7 10^3/uL (4.0-10.8)
[2021-09-08 21:48] LABS: PLATELET ESTIMATE ADEQUATE
[2021-09-08 22:07] LABS: ALBUMIN 3.9 g/dl (3.4-5.0); BILIRUBIN,TOTAL 0.8 mg/dl (0.2-1); CALCIUM 9.3 mg/dl (8.5-10); TOT PROT 6.8 g/dl (6.4-8.2)
== END 2021-09-08 23:44 | disposition home or self-care (01) ==
LOC: FER 20:35
DX: R10.9 Unspecified abdominal pain (principal)
CPT/HCPCS: 36415; 74176-TC; 80053; 81003; 83690; 84484; 85027; 93005; 99285-25

== ENCOUNTER 2021-10-18 05:06 | Day surgery (SDC) | payer OTHER ==
[2021-10-13 10:01] VITALS: BMI 27.4
[2021-10-18 10:26] LABS: BASO % 1.1 % (0-2.0); EOS % 12.3 % (0-4.5); HEMATOCRIT 38.6 % (32.4-45.2); HEMOGLOBIN 13.3 GM/dL (10.7-15.3); LYMPH % 42.2 % (8-40); MCH 28.9 pg (25.7-33.7); MCHC 34.5 g/dl (32.0-36.0); MEAN CELL VOLUME 83.6 fl (80-96); MEAN PLT VOLUME 7.5 fl (7.5-11.1); MONO % 8.9 % (3.8-10.2); NEUT % 35.5 % (42.8-82.8); PLATELET COUNT 198 10^3/uL (134-434); RBC 4.61 M/mm3 (3.60-5.2); RDW 13.4 % (11.6-15.6); WHITE BLOOD COUNT 3.6 K/mm3 (4.0-10.0)
[2021-10-18] MEDS ORDERED: MIDAZOLAM HCL 2 MG/2 ML SINGLE DOSE VIAL ONE (10:30)
[2021-10-18] MEDS ORDERED: FENTANYL CITRATE/PF 50 MCG/ML VIAL ONE ×2 (10:30→10:31)
[2021-10-18 10:33] LABS: INR 1.03 (0.83-1.09); PROTHROMBIN TIME (PATIENT) 11.9 SEC (9.7-13.0)
[2021-10-18] MEDS ORDERED: MIDAZOLAM HCL 2 MG/2 ML SINGLE DOSE VIAL IVPB ONE (11:53)
[2021-10-18] MEDS ORDERED: SODIUM CHLORIDE 500 ML IV ONE (12:45)
[2021-10-18 14:55] VITALS: TEMP 97.9
[2021-10-18 15:02] VITALS: BP 149/83; PULSE 60
== END 2021-10-18 14:15 | disposition home or self-care (01) ==
LOC: JRADIR 05:06
PROVIDERS: ATTEND Internal Medicine Hematology & Oncology
PROC: 07DR3ZX Extraction of Iliac Bone Marrow, Percutaneous Approach, Diagnostic (ICD-10-PCS; principal; 2021-10-18)
DX: D72.819 Decreased white blood cell count, unspecified (principal); C18.9 Malignant neoplasm of colon, unspecified
CPT/HCPCS: 20225; 36415; 85025; 85610; 88300-TC; C9803-CS; U0003; U0005

== ENCOUNTER 2022-06-23 12:26 | Emergency (ER) | payer OTHER ==
[2022-06-23 12:49] VITALS: BP 154/103; PULSE 66; RESP 20; TEMP 98.3; BMI 26.1
== END 2022-06-23 14:47 | disposition home or self-care (01) ==
LOC: FER 12:26
DX: R05.9 Cough, unspecified (principal)
CPT/HCPCS: 0241U-QW; 71046-TC-FY; 99284-25

== ENCOUNTER 2023-03-26 18:29 | Observation (INO) | payer OTHER ==
[2023-03-26 19:20] VITALS: BMI 25.8
[2023-03-26 20:58] LABS: BASO % 1.1 % (0-2.0); EOS % 12.6 % (0-4.5); HEMATOCRIT 38.3 % (32.4-45.2); HEMOGLOBIN 12.8 GM/dL (10.7-15.3); LYMPH % 35.8 % (8-40); MCH 28.3 pg (25.7-33.7); MCHC 33.5 g/dl (32.0-36.0); MEAN CELL VOLUME 84.3 fl (80-96); MONO % 9.6 % (3.8-10.2); NEUT % 40.9 % (42.8-82.8); PLATELET COUNT 258 10^3/uL (134-434); RBC 4.54 M/mm3 (3.60-5.2); WHITE BLOOD COUNT 4.7 K/mm3 (4.0-10.0)
[2023-03-26] MEDS ORDERED: HEPARIN NA (PORCINE) 5,000 UNITS/ML 1ML VIAL IVPUSH ONE (20:59)
[2023-03-26 21:04] LABS: INR 1.03 (0.83-1.09)
[2023-03-26 21:06] LABS: ACTIVATED PTT 30.4 SECONDS (25.2-36.5)
[2023-03-26] MEDS ORDERED: HEPARIN - 25,000 UNIT in SODIUM CHLORIDE 495 ML IV SCH (21:15)
[2023-03-26 21:21] LABS: POTASSIUM 5.2 mmol/L (3.5-5.1)
[2023-03-26 21:23] LABS: CALCIUM 8.4 mg/dL (8.5-10.1)
[2023-03-26 21:24] LABS: ALBUMIN 3.2 g/dl (3.4-5.0); BLOOD UREA NITROGEN 13.6 mg/dL (7-18)
[2023-03-26 21:27] LABS: CREATININE 1.1 mg/dL (0.55-1.3)
[2023-03-26 21:28] LABS: BILIRUBIN,TOTAL 0.4 mg/dL (0.2-1)
[2023-03-26] MEDS ORDERED: HEPARIN NA (PORCINE) 5,000 UNITS/ML 1ML VIAL IVPUSH PRN ×2 (21:37)
[2023-03-26] MEDS ORDERED: HEPARIN INFUSION - 25,000 UNITS/500 ML INFUS.BAG IVPB ONE (21:39)
[2023-03-26] MEDS ORDERED: HEPARIN NA (PORCINE) 5,000 UNITS/ML 1ML VIAL ONE (21:39)
[2023-03-26] MEDS ORDERED: HEPARIN INFUSION - 25,000 UNITS/500 ML INFUS.BAG IVPB SCH (21:45)
[2023-03-26] MEDS ORDERED: DOCUSATE SODIUM 100 MG CAPSULE (FP) PO PRN (23:09)
[2023-03-26] MEDS ORDERED: ACETAMINOPHEN 325 MG TABLET (FP) PO PRN (23:09)
[2023-03-27 02:05] VITALS: TEMP 96.7
[2023-03-27 06:32] LABS: BASO % 1.3 % (0-2.0); EOS % 19.6 % (0-4.5); HEMATOCRIT 39.7 % (32.4-45.2); HEMOGLOBIN 13.3 GM/dL (10.7-15.3); LYMPH % 38.8 % (8-40); MCH 28.5 pg (25.7-33.7); MCHC 33.5 g/dl (32.0-36.0); MEAN PLT VOLUME 7.9 fl (7.5-11.1); MONO % 9.1 % (3.8-10.2); NEUT % 31.2 % (42.8-82.8); PLATELET COUNT 220 10^3/uL (134-434); RBC 4.67 M/mm3 (3.60-5.2); RDW 13.9 % (11.6-15.6); WHITE BLOOD COUNT 4.2 K/mm3 (4.0-10.0)
[2023-03-27 06:54] LABS: POTASSIUM 3.7 mmol/L (3.5-5.1)
[2023-03-27 06:56] LABS: CALCIUM 8.6 mg/dL (8.5-10.1)
[2023-03-27 06:57] LABS: BLOOD UREA NITROGEN 11.7 mg/dL (7-18)
[2023-03-27 06:59] LABS: PHOSPHOROUS 4.3 mg/dL (2.5-4.9)
[2023-03-27 07:00] LABS: CREATININE 0.9 mg/dL (0.55-1.3)
[2023-03-27 09:46] VITALS: RESP 16
[2023-03-27 16:06] VITALS: BP 155/64; PULSE 75
== END 2023-03-27 15:32 | disposition home or self-care (01) ==
LOC: JER 18:29 → JERBED 23:13
PROVIDERS: ADMIT Internal Medicine; ATTEND Family Medicine
PROC: 3E033GC Introduction of Other Therapeutic Substance into Peripheral Vein, Percutaneous Approach (ICD-10-PCS; principal; 2023-03-26)
DX: I26.99 Other pulmonary embolism without acute cor pulmonale (principal); C18.9 Malignant neoplasm of colon, unspecified; N20.0 Calculus of kidney; I10 Essential (primary) hypertension; Z79.01 Long term (current) use of anticoagulants
CPT/HCPCS: 36415; 80048; 80053; 83735; 84100; 85025; 85610; 85730; 86850; 86900; 86901; 93005; 93010; 93306-TC; 93970-TC; 96365; 96366; 99285-25; G0378; J1644